=== PATIENT | male | born 1950 | race Caucasian/White ===

== ENCOUNTER → 2019-02-20 14:18 | Outpatient (CLI) | payer MEDICARE, SELFPAY ==
--- NOTE | 2019-02-20 14:25 | XR_ITS ---
XR foot LT min 3V HISTORY: ITS.REASON: LT FOOT PAIN ORDERING PHYSICIAN: Emery Duff MD PATIENT AGE: 68 years COMPARISON: None FINDINGS: There are osteoarthritic changes involving the second through fifth metatarsal tarsal joints with subchondral cystic changes. Severe osteoarthritic changes are also noted at the ankle joint with severe subchondral cystic changes. Bony hypertrophy is noted at the neck of the talus. No obvious fracture or dislocation. IMPRESSION Severe osteoarthritic change at the second through fifth metatarsal tarsal joint and ankle joint with extensive subchondral cystic changes
== END ==
PROVIDERS: PCP Family Medicine; Visit Provider Family Medicine
DX: M79.672 Pain in left foot (principal)
CPT/HCPCS: 73630

== ENCOUNTER → 2019-04-05 14:15 | Outpatient (CLI) | payer MEDICARE, SELFPAY ==
--- NOTE | 2019-04-05 14:20 | XR_ITS ---
PROCEDURE: XR FOOT WT BEARING LT 3V CLINICAL INDICATION: pain COMPARISON: from 02/20/2019 FINDINGS: Prominent subarticular cystic changes are present vomiting the midfoot not significantly changed. Small rounded calcific densities are present anterior to the ankle joint consistent with synovial osteochondromas. No fracture or dislocation. Severe osteoarthritic changes once again noted at the tarsal metatarsal junction. IMPRESSION: Overall no change. Prominent subarticular cystic changes with severe osteoarthritis Dictated by: Dc Brown MD 04/05/2019 15:30 Signed by: <Electronically signed by Dc Brown MD in [place]> 04/05/2019 15:30
--- NOTE | 2019-04-05 14:20 | XR_ITS ---
PROCEDURE: XR ANKLE WT BEARING RT MIN 3V CLINICAL INDICATION: pain COMPARISON: XR FOOT WT BEARING RT 3V from 04/05/2019 FINDINGS: Moderate to severe osteoarthritic changes are present at the ankle with decrease in the joint space and subarticular cystic changes along with osteosclerosis. Mild exostosis is present at the base of the medial malleolus. No acute fracture or dislocation. There are some lucencies noted in the talar dome medially nonspecific. Hypertrophic change present also at the neck of the talus anteriorly with bony osteophytes at the tibiotalar region IMPRESSION: Osteoarthritis with prominent subarticular cystic changes Dictated by: Dc Brown MD 04/05/2019 15:19 Signed by: <Electronically signed by Dc Brown MD in [place]> 04/05/2019 15:19
--- NOTE | 2019-04-05 14:20 | XR_ITS ---
PROCEDURE: XR FOOT WT BEARING RT 3V CLINICAL INDICATION: pain COMPARISON: XR FOOT WT BEARING LT 3V from 04/05/2019 FINDINGS: There is pes planus with severe subarticular cystic changes with osteoarthritis at the metatarsal tarsal junction of digits 2 through 5. There is what mild widening of the 1st intermetatarsal space. Osteoarthritic changes are present also at the navicular cuneiform joint with subarticular cystic changes. There is mild pes planus. There are periarticular erosive changes laterally at the 1st metatarsophalangeal junction. Prominent cyst involves the distal aspect of the 1st metatarsal with mild hallux valgus also noted.. Cystic changes are also present at the distal aspect of the proximal. The erosive changes have developed since the previous exam. Subarticular cystic changes are slightly worse IMPRESSION: Severe midfoot subarticular cystic changes/osteoarthritis with pes planus the and prominent cystic area at the head of the 1st metatarsal measuring 15 mm. Periarticular erosive change involves the lateral aspect of the 1st metatarsophalangeal joint. Erosive arthritis considered. This has developed since 06/25/2016 Dictated by: Dc Brown MD 04/05/2019 15:23 Signed by: <Electronically signed by Dc Brown MD in [place]> 04/05/2019 15:28
--- NOTE | 2019-04-05 14:20 | XR_ITS ---
PROCEDURE: XR ANKLE WT BEARING LT MIN 3V CLINICAL INDICATION: pain COMPARISON: No exams were available for comparison FINDINGS: Severe subarticular cystic changes are present involving the ankle joint with mild inversion of the ankle with osteoarthritis of the ankle joint. Calcific debris is present at both medial lateral malleolar region and a calcifications present anterior to the tibial talar joint. Sclerosis noted involving the subtalar joint IMPRESSION: Severe osteoarthritis with subarticular cystic changes Dictated by: Dc Brown MD 04/05/2019 15:31 Signed by: <Electronically signed by cD Brown MD in [place]> 04/05/2019 15:31
== END ==
PROVIDERS: PCP Family Medicine; Visit Provider Podiatrist
DX: M79.672 Pain in left foot (principal); M79.671 Pain in right foot; M25.572 Pain in left ankle and joints of left foot; M25.571 Pain in right ankle and joints of right foot
CPT/HCPCS: 73610; 73630

== ENCOUNTER → 2019-04-19 09:18 | Outpatient (CLI) | payer MEDICARE, SELFPAY ==
--- NOTE | 2019-04-19 09:23 | XR_ITS ---
PROCEDURE: XR FOOT WT BEARING LT 3V CLINICAL INDICATION: pain Chronic foot pain COMPARISON: FTR3 FOOT-RT-3 VIEWS from 06/25/2016 from 02/20/2019 XR FOOT WT BEARING LT 3V from 04/05/2019 XR FOOT WT BEARING RT 3V from 04/05/2019 FINDINGS: Prominent subarticular cystic changes are present vomiting the midfoot not significantly changed. Small rounded calcific densities are present anterior to the ankle joint consistent with synovial osteochondromas. No fracture or dislocation. Severe osteoarthritic changes once again noted at the tarsal metatarsal junction. IMPRESSION: Overall no change. Prominent subarticular cystic changes with severe osteoarthritis Dictated by: Dc Brown MD 04/19/2019 18:00 Electronically signed by Dc Brown MD in [place] 04/19/2019 18:00
--- NOTE | 2019-04-19 09:23 | XR_ITS ---
PROCEDURE: XR ANKLE WT BEARING LT MIN 3V CLINICAL INDICATION: pain Chronic medial ankle pain COMPARISON: XR ANKLE WT BEARING LT MIN 3V from 04/05/2019 XR ANKLE WT BEARING RT MIN 3V from 04/05/2019 FINDINGS: Severe osteoarthritic changes are present at the ankle joint with severe subarticular cystic changes. There is mild medial angulation of the talus. Subarticular cystic change with osteoarthritis noted at the talofibular joint as well. There is mild flattening of the talar dome. Subarticular cystic changes are also noted in the midfoot IMPRESSION: No change in the severe osteoarthritis with severe subarticular cystic changes Dictated by: Dc Brown MD 04/19/2019 17:56 Electronically signed by Dc Brown MD in [place] 04/19/2019 17:56
== END ==
LOC: RAD 09:20
PROVIDERS: PCP Family Medicine; Visit Provider Orthopaedic Surgery
DX: M25.572 Pain in left ankle and joints of left foot; E11.610 Type 2 diabetes mellitus with diabetic neuropathic arthropathy; M20.41 Other hammer toe(s) (acquired), right foot; M20.42 Other hammer toe(s) (acquired), left foot; M21.41 Flat foot [pes planus] (acquired), right foot; Z79.84 Long term (current) use of oral hypoglycemic drugs
CPT/HCPCS: 73610; 73630

== ENCOUNTER → 2019-05-03 08:36 | Outpatient (CLI) | payer MEDICARE, SELFPAY ==
[2019-05-03 09:28] LABS: Blood Urea Nitrogen 34 mg/dL (7-18); Creatinine,Serum 2.14 mg/dL (0.70-1.30); Estimated Glomerular Filt Rate 31 ml/min (>60); GFR (African American) 37 ML/MIN (>60)
== END ==
PROVIDERS: Visit Provider Podiatrist
DX: E11.610 Type 2 diabetes mellitus with diabetic neuropathic arthropathy (principal); Z79.84 Long term (current) use of oral hypoglycemic drugs; M79.672 Pain in left foot
CPT/HCPCS: 36415; 82565; 84520

== ENCOUNTER → 2019-05-04 08:22 | Outpatient (CLI) | payer MEDICARE, SELFPAY | PROVIDERS: PCP Family Medicine; Visit Provider Podiatrist | DX: E11.610 Type 2 diabetes mellitus with diabetic neuropathic arthropathy (principal); M79.672 Pain in left foot ==

== ENCOUNTER → 2019-05-30 13:42 | Outpatient (CLI) | payer MEDICARE, SELFPAY ==
--- NOTE | 2019-05-30 14:01 | MR_ITS ---
PROCEDURE: MR FOOT LT WO CON CLINICAL INDICATION: charcot Foot pain, Charcot joint, primary osteoarthritis Peroneal tendon tear/rupture/edema, instability, Peroni ule tendinitis/strain COMPARISON: XR FOOT WT BEARING LT 3V from 04/19/2019 TECHNIQUE: Routine multiplanar multi echo sequences are performed without gadolinium enhancement. FINDINGS: Ankle: Severe subarticular cystic changes of the distal tibia and talar dome with small knee joint effusion. Minimal cortical regularity of the talar dome. There are numerous subarticular cysts with osteoarthritic changes of the ankle. The subtalar joint has an unremarkable appearance as does the calcaneus and navicular. There are minimal osteoarthritic changes of the talonavicular joint. Subarticular cystic changes involve the cuneiforms and the base of the 2nd, 3rd, and 4th metatarsals there is diffuse subarticular cystic changes involving the 5th metatarsal and cuboid joint with osteoarthritic changes at the cuboid/5th metatarsal. Cannot exclude a more aggressive process. There is some expansion of the base of the 5th metatarsal superiorly and the distal aspect of the cuboid. There is central increased T2 signal within the peroneal brevis tendon at the retro malleolar groove and may be related to partial split tear or tendinopathy. There is a small amount fluid within the tendon sheath at and distal to the retro malleolar groove consistent with tendinitis. The Achilles tendon, extensor tendons, posterior tibialis, flexor hallucis longus and flexor digitorum longus tendons have an unremarkable appearance. There is mild edema of the distal tibia and the talar dome. Small ankle joint effusion is present. Mild soft tissue edema involves the plantar surface of the foot IMPRESSION: 1. Extensive subarticular cystic changes of the ankle and tarsal metatarsal junction as detailed above with osteoarthritic changes of the ankle and metatarsal tarsal junction. There is some mild expansion of the cystic changes at the 5th metatarsal tarsal junction. Follow-up is suggested to exclude a more aggressive process such as underlying infection or neoplasm at this region. 2. Small focal area of increased T2 signal within the peroneal brevis tendon consistent with tendinopathy versus partial split tear with fluid in the tendon sheath consistent with tenosynovitis Dictated by: Dc Brown MD 05/31/2019 13:15 Electronically signed by Dc Brown MD in [place] 06/01/2019 06:37
== END ==
LOC: RAD 13:42
PROVIDERS: PCP Family Medicine; Visit Provider Podiatrist
DX: E11.610 Type 2 diabetes mellitus with diabetic neuropathic arthropathy (principal)
CPT/HCPCS: 73718

== ENCOUNTER → 2019-06-01 12:51 | Outpatient (CLI) | payer MEDICARE, SELFPAY ==
--- NOTE | 2019-06-01 12:53 | MR_ITS ---
PROCEDURE: MR ANKLE LT WO CON CLINICAL INDICATION: charcot Severe fluid in ankle pain, left ankle instability, perennial tendinitis with string of the perineal tendon COMPARISON: XR FOOT WT BEARING LT 3V from 04/19/2019 MR FOOT LT WO CON from 05/30/2019 TECHNIQUE: Routine multiplanar multi echo sequences are performed without gadolinium enhancement. FINDINGS: Ankle: Severe subarticular cystic changes of the distal tibia and talar dome with small ankle there is cortical regularity of the distal articular surface of the tibia and of the talar dome. Severe osteoarthritic changes are present involving the distal tibiofibular junction with subarticular cystic changes. The tibial fibular ligaments are identified. The anterior talofibular ligament is not identified consistent with tear of the ATFL the posterior talofibular ligament does appear to be intact. The deltoid ligament is not identified with certainty. The extensor tendons, posterior tibialis, and flexor hallucis and flexor digitorum longus tendons have an unremarkable appearance A the perineal brevis tendon has an abnormal appearance at the level of and just inferior to the retro malleolar groove. A split tear is present at this area with enlargement of the peroneal brevis tendon. There is heterogeneous signal intensity within the peroneal brevis tendon at this area. The peroneal longus tendon has an unremarkable appearance. There is fluid within the tendon sheath of the peroneal longus and brevis tendon beginning in the distal leg and extending to the calcaneal region. The Achilles tendon, extensor tendons, posterior tibialis, flexor hallucis longus and flexor digitorum longus tendons have an unremarkable appearance. There is mild edema of the distal tibia and the talar dome. Small ankle joint effusion is present. Mild soft tissue edema involves the plantar surface of the foot IMPRESSION: 1. Extensive subarticular cystic changes of the ankle and tarsal bones with osteoarthritis with some cortical irregularity of the distal tibial surface and talar dome 2. Tendinopathy/tendinosis of the peroneal brevis tendon with split tear and with tenosynovitis of the peroneal tendon sheath 3. Nonvisualization of the anterior talofibular ligament and deltoid ligament suggesting tear is of these ligaments Dictated by: Dc Brown MD 06/02/2019 11:43 Electronically signed by Dc Brown MD in [place] 06/02/2019 11:43
== END ==
LOC: RAD 12:51
PROVIDERS: PCP Family Medicine; Visit Provider Podiatrist
DX: E11.610 Type 2 diabetes mellitus with diabetic neuropathic arthropathy (principal); Z79.84 Long term (current) use of oral hypoglycemic drugs
CPT/HCPCS: 73721

== ENCOUNTER → 2019-06-27 10:09 | Outpatient (CLI) | payer MEDICARE, SELFPAY ==
--- NOTE | 2019-06-27 10:10 | XR_ITS ---
PROCEDURE: XR DEXA AXIAL SKELETON CLINICAL HISTORY: Osteoporosis COMPARISON: No exams were available for comparison FINDINGS: L1-L4 density is 1.0 grams/centimeters sq with a T-score 2.7. The mean hip density is 0.963 grams/centimeters sq with a T-score -0.8 and an age matched Z-score of -0.2. The IMPRESSION: Normal bone density with low fracture risk Dictated by: Dc Brown MD 06/27/2019 18:40 Electronically signed by Dc Brown MD in [place] 06/27/2019 18:40
== END ==
PROVIDERS: PCP Family Medicine; Visit Provider Podiatrist
DX: M81.0 Age-related osteoporosis without current pathological fracture (principal); Q78.2 Osteopetrosis
CPT/HCPCS: 77080

== ENCOUNTER 2019-07-24 14:00 | Outpatient (RCR) | payer MEDICARE, SELFPAY ==
--- NOTE | 2019-06-27 11:23 | HMH.PTOPEV ---
PT Outpatient Evaluation Rehab PT Outpatient Evaluation Start: 06/27/19 09:06 Freq: Status: Active Protocol: Document 06/27/19 09:07 RANDAL (Rec: 06/27/19 11:22 RANDAL [id number]) Electronically Signed By Enmanuel Aguilar, PT 06/27/19 09:07 Outpatient Therapy Subjective History Subjective History Pt reports insidious onset L ankle pain beginning ~3-4 months ago. pt reports mostly medial L ankle pain in origin, exacerbated w/any wt. bearing activity. Pt reports recent Xrays of L ankle have revealed arthritis. Pt also reports failed L TKA contributes to poor gait and L ankle compensation pattern. PMH: thyroid cx., DM, OA Chief Complaint Pain,Stiff,Weakness Symptom Type Sharp Symptoms Relieved By Rest/Positioning Symptoms Aggravated By Standing,Physical Activity, Walking Prior Functional Limitations Standing,Walking Current Functional Limitations Standing,Walking Symptom Description Constant but Variable Level of pain today (0-10) 5 Pain scale - at its best (0-10) 4 Pain scale - at its worst (0-10) 8 Ankle/Foot Eval Gait Observation General Gait Pattern Observation Antalgic Gait,Wide Based Gait Assistive Device Ambulation Assistive Device Straight Cane Palpation Tenderness left Ankle/Foot Palpation Findings Tenderness Ankle/Foot Palpation Overall Comment 2-3/4 post. tib insertion ROM Ankle/Foot Dorsiflexion w/Knee Extended 0-10 Active Range Motion (degrees) Ankle/Foot Plantar Flexion Active Range 0-35 of Motion (degrees) Ankle/Foot Eversion Active Range of +10 Motion (degrees) Ankle/Foot Inversion Active Range of 10-30 Motion (degrees) Ankle/Foot ROM Limitations Soft Tissue Tightness,Bony Restriction,Pain MMT Ankle Dorsiflexion Strength Grade 4 Good Ankle Plantarflexion Strength Grade 4 Good Foot Eversion Strength Grade 4- Good- Foot Inversion Strength Grade 4- Good- Outpatient Therapy Assessment Impairments Problems/Impairmments Palpation Tenderness,Impaired Range of Motion,Impaired Strength,Impaired Gait Pattern ,Impaired Walking,Impaired Standing,Subjective C/O Pain, Impaired Self Care/Self Management Prognosis Rehab Potential Good Clinical Impression
== END 2019-07-24 14:05 | disposition home or self-care (01) ==
LOC: PT 14:00
PROVIDERS: Visit Provider Podiatrist
DX: M76.72 Peroneal tendinitis, left leg (principal); M25.372 Other instability, left ankle; S86.312A Strain of muscle(s) and tendon(s) of peroneal muscle group at lower leg level, left leg, initial encounter
CPT/HCPCS: 97010; 97014; 97035; 97110; 97163; G0283

== ENCOUNTER 2020-03-12 10:41 | Inpatient (IN) | payer MEDICARE, SELFPAY ==
[2020-03-12] VITALS (20 sets, daily range): BP systolic 105–162; BP diastolic 35–110; PULSE 56–95; RESP 14–20; TEMP 36.6–37.2; O2SAT 93–978; BMI 41.0; BMI 41.7
--- NOTE | 2020-03-12 | IR_ITS ---
APPROVED REPORT Patient Location: [facility]: [facility] RT (R) PROCEDURES Left heart catheterization Left ventriculogram Selective coronary angiogram Right femoral arterial access Catheter placement in the right axillary artery Right axillary artery angiogram Stent deployment to the right axillary artery Drug-eluting stent deployment to the mid and distal dominant right coronary artery INDICATION Acute non-ST elevation myocardial infarction, Coronary artery disease, Right axillary artery obstruction Informed consent was obtained prior to the procedure. COMPLICATIONS none Estimated Blood Loss: less than 10 mls TECHNIQUE One percent lidocaine used to anesthetize the right anterior aspect of the wrist. The right radial artery was accessed via the Seldinger technique. A 6 [place] sheath was placed in the right radial artery. 2.5 mg of verapamil, 800 mcg of nitroglycerin, 1mg Lidocaine and 5000 U Heparin were given through the arterial sheath. Diagnostic catheter was used to perform to perform left heart catheterization left ventriculogram and selective coronary angiogram. 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 At the end of the diagnostic procedure therapeutic heparin was administered and an AL 0.75 guide catheter was placed in the right coronary artery. A Choice PT wire was placed distally and a 5 mm x 30 mm resolute jerome stent was passed into the right coronary artery. The stent could not be deployed due to tortuosity therefore was pulled back into the guide catheter however the stent would not recover inside the guide catheter. This required right femoral arterial access and the placement of a long destination 8 [place] sheath with its distal tip ending in the thoracic aorta. A 4 mm snare was attempted to retrieve the stent and pull it into the 8 [place] sheath however this was unsuccessful. At this point a JR4 guide catheter was advanced through the 8 [place] sheath into the innominate artery and advanced into the subclavian axillary region. An advantage wire was placed distal into the brachial artery. The 5 mm 38 mm resolute stent was then pulled back into the right axillary artery and the stent was deployed at 6 francois. Simultaneously and overlapping the stent was a 9 mm x 37 mm bare-metal stent which was deployed at 8 francois. At 8 francois the 5 mm x 38 mm resolute stent balloon was deflated and the stent was then trapped external to the 9 mm stent. The stent was then deployed at 12 francois in the axillary artery crushing the 5 mm stent with the 9 mm stent. Excellent angiographic results were obtained with wide patency of the axillary artery. The apparatus from the right radial artery was removed while leaving the sheath in place. A 3 DRC guide catheter was then placed into the right coronary artery and a Choice PT extra-support wire was placed distally. A guide liner was used and a 5 mm x 26 mm resolute jerome stent was deployed at 18 francois in the distal right coronary artery reducing the critical disease to 0%. An additional 5 mm x 22 mm resolute jerome stent was deployed proximal to this at 18 francois yet still overlapping the stent getting excellent angiographic results. JANETH-3 flow was present before and after the procedure with wide patency of the stent. At the end of the procedure the apparatus was removed the groin was reprepped gloves were changed sheath was removed good hemostasis was achieved using Perclose device patient was transferred to the postop holding area stable condition
--- NOTE | 2020-03-12 10:37 | ECG_ITS ---
APPROVED REPORT Exam: Resting ECG HR:68 bpm ECG Measurements Heart Rate 68 AXES WA 176 P 68 QRSd 80 QRS -27 QT 420 T 62 QTc 446 <Conclusion> Normal sinus rhythm Low voltage QRS Nonspecific ST abnormality Abnormal ECG Electronically signed by : Abilio Scott, 03/15/2020 08:33:39
--- NOTE | 2020-03-12 10:51 | XR_ITS ---
PROCEDURE: XR CHEST PORTABLE CLINICAL HISTORY: chest discomfort COMPARISON: CR CXR CHEST(2 VIEWS-NOT PORTABLE) from 11/09/2013 FINDINGS: The cardiomediastinal silhouette and pulmonary vascularity are within normal limits. The lungs are clear without infiltrates, suspicious nodules, or pleural effusions. The right hemidiaphragm is elevated with mild vascular crowding in the right lung base. The remaining lungs are clear. No acute bony findings. Surgical clips are present in the thyroid area. IMPRESSION: No change with no acute finding Dictated b Dc Brown MD 03/12/2020 13:26 Dc Brown MD in [place] 03/12/2020 13:26
[2020-03-12 11:00] LABS: Basophils % 0.5 % (0.1-2.0); Chloride 100 mmol/L (98-107); Eosinophils # 0.1 K/mm3 (0.0-0.4); Eosinophils % 1.2 % (0.1-12.0); Hematocrit 39.3 % (42.0-52.0); Hemoglobin 13.6 g/dL (14.1-18.0); Lymphocytes # 1.2 K/mm3 (0.7-4.5); Lymphocytes % 17.1 % (10-50); Mean Corpuscular HGB Conc 34.7 g/dL (31.8-35.4); Mean Corpuscular Hemoglobin 33.2 pg (27.0-31.2); Mean Corpuscular Volume 95.7 fl (80-94); Mean Platelet Volume 6.8 fl (7.4-10.4); Monocytes # 0.4 K/mm3 (0.1-1.0); Monocytes % 6.2 % (1.7-9.3); Neutrophils # 5.2 K/mm3 (1.8-7.8); Platelet Count 269 K/mm3 (142-424); Potassium 3.6 mmoL/L (3.5-5.1); Red Cell Distribution Width 13.6 % (11.5-17.5); Sodium 138 mmol/L (136-145); White Blood Count 6.9 K/mm3 (4.8-10.8)
[2020-03-12 11:01] LABS: Anion Gap 12.6 mEq/L (5-15); Blood Urea Nitrogen 29 mg/dl (9-20); Calcium 9.2 mg/dl (8.4-10.2); Carbon Dioxide 29 mmol/L (22.0-30.0); Creatinine Clearance Estimated 73 mL/min (50-200); Estimated Glomerular Filt Rate 38 ml/min (>60); GFR (African American) 45 ML/MIN (>60); Glucose 177 mg/dl (74-100)
[2020-03-12 11:05] LABS: Alanine Aminotransferase 24 U/L (12-78); Albumin Level 3.8 g/dl (3.5-5.0); Albumin/Globulin Ratio 1.3 (1.1-1.8); Aspartate Amino Transferase 32 U/L (17-59); Bilirubin,Total 0.5 mg/dl (0.2-1.3); Lipase 121 U/L (23-300); Total Protein,Serum 6.8 g/dl (6.3-8.2)
[2020-03-12 11:19] LABS: NT Pro Brain Natriuretic Pep. 246 pg/mL (0-125)
[2020-03-12 11:21] LABS: Troponin I 0.54 ng/ml (0.00-0.034)
--- NOTE | 2020-03-12 11:21 | PC.NURSE ---
Critical value per Rebekah in the lab; BNP 246 and Troponin 0.54 reported to attending
--- NOTE | 2020-03-12 11:25 | HMH.EDCP ---
ED Disposition Clinical Impression: NSTEMI (non-ST elevated myocardial infarction), Hypertension, Acute kidney injury, Dyslipidemia Disposition: Admitted As Inpatient Condition on Discharge: Fair Referrals: Emery Duff MD [Primary Care Provider] - Time of Disposition: 11:42 (Admitted to Dr. Duff) - Critical Care Critical Care Time: No Attestation: On 03/12/20, the high probability of a clinically significant, sudden or life threatening deterioration of the following system(s) required my full and direct attention, intervention and personal management. The time I documented below is in addition to time spent performing reported procedures but includes the following listed in this critical care notation. Medical Decision Making - Anjum Inquiry Pt receiving controlled substance: No Vital Signs: 03/12/20 10:43 03/12/20 11:14 Temperature 98 F Temperature Source Oral Pulse Rate [Left Radial] 78 64 Respiratory Rate 20 14 Blood Pressure [Right Arm] 162/78 H 153/74 H Blood Pressure Mean [Right Arm] 106 100 Blood Pressure Source [Right Arm] Automatic Cuff Blood Pressure Position [Right Arm] Sitting Sitting 02 Sat by Pulse Oximetry 98 94 L Oxygen Delivery Method Room Air Room Air - Lab Data Lab Results 03/12/20 10:44: WBC 6.9, RBC 4.10 L, Hgb 13.6 L, Hct 39.3 L, MCV 95.7 H, MCH 33.2 H, MCHC 34.7, RDW 13.6, Plt Count 269, MPV 6.8 L, Neut % (Auto) 75.0, Lymph % (Auto) 17.1, Irion % (Auto) 6.2, Eos % (Auto) 1.2, Baso % (Auto) 0.5, Neut # (Auto) 5.2, Lymph # (Auto) 1.2, Irion # (Auto) 0.4, Eos # (Auto) 0.1, Baso # (Auto) 0.0 03/12/20 10:44: Sodium 138, Potassium 3.6, Chloride 100, Carbon Dioxide 29, Anion Gap 12.6, BUN 29 H, Creatinine 1.80 H, Estimated Creat Clear 73, Estimated GFR 38 L, Est GFR ( Amer) 45 L, Glucose 177 H, Calcium 9.2, Total Bilirubin 0.5, AST 32, ALT 24, Alkaline Phosphatase 111, Troponin I 0.54 H, NT-Pro-B Natriuret Pep 246 H, Total Protein 6.8, Albumin 3.8, Globulin 3.0, Albumin/Globulin Ratio 1.3, Lipase 121 Result diagrams: 03/12/20 10:44 03/12/20 10:44 Orders (Tests/Meds): ED MEDICATIONS Generic Name Dose Route Start Last Admin Trade Name Freq PRN Reason Stop Dose Admin Miscellaneous 1 each 03/12/20 11:30 Heparin Drip Consult Request * 04/11/20 11:29 CONSULT PHARMACY [facility] Sodium Chloride 8 ml 03/12/20 10:53 03/12/20 11:02 Sodium Chloride 0.9% 10ml Vial IV 04/11/20 10:52 8 ml NEEDED PRN Administration dilute pepcid Discontinued Medications Generic Name Dose Route Start Last Admin Trade Name Freq PRN Reason Stop Dose Admin Aspirin 325 mg 03/12/20 11:21 03/12/20 11:34 Aspirin 325mg Tablet PO 03/12/20 11:22 Not Given ONCE ONE Belladonna Alkaloids 60 ml 03/12/20 10:56 03/12/20 11:16 Gi Cocktail 60ml Udc PO 03/12/20 10:57 60 ml ONCE ONE Administration Famotidine 20 mg 03/12/20 10:53 03/12/20 11:03 Pepcid 20mg/2ml Vial IV 03/12/20 10:54 20 mg ONCE ONE Administration Ondansetron HCl 4 mg 03/12/20 10:51 03/12/20 10:51 Zofran 4mg/2ml Vial IV 03/12/20 10:52 4 mg ONCE ONE Administration Ticagrelor 180 mg 03/12/20 11:28 Brilinta 90mg Tablet PO 03/12/20 11:29 ONCE ONE ORDERS Category Date Time Status XR chest portable Stat Exams 03/12/20 10:51 Taken Troponin I Q3H Lab 03/12/20 14:00 Ordered Troponin I Q3H Lab 03/12/20 17:00 Ordered EKG Request [ECG Request by /Nse] Stat Y 03/12/20 10:52 Ordered - Radiology Data #1 Image(s): Chest Chronic changes, no acute changes - ECG Data Tracing #1 EKG shows MA interval 176 ms, normal QTC. Sinus rhythm with nonspecific changes. No previous EKG for comparison ECG initial impression date: 03/12/20 ECG initial impression time: 10:38 - Physician Consults Physician Consulted: Dr. Bullock Time: 11:30 Reason -: Cardiology Eval/Care - Reevaluation(s) Time: 11:40 Reevaluation #1: On reevaluation, the pat
[2020-03-12 11:29] LABS: Alkaline Phosphatase 111 U/L (38-126)
--- NOTE | 2020-03-12 11:40 | PC.NURSE ---
Candie from lab asst called, stated they have a pt there are about to cath at this time and then they will be ready for pt
--- NOTE | 2020-03-12 11:41 | PC.NURSE ---
Cheri from denture laboratory technician stated they are about to start with their current pt and asked if we could bring pt up when they call stating they are ready for him.
--- NOTE | 2020-03-12 11:42 | PC.NURSE ---
Tania Palacios APRN at bedside consulting patient at this time
--- NOTE | 2020-03-12 11:59 | HMH.CNCARD ---
History of Present Illness Consult date: 03/12/20 Requesting physician: Raf Ellington Consult reason: chest pain Chief complaint: chest pain Additional Medical History:: 1. htn 2. hld 3. dm] 4. thyroid cancer 5. GERD 6. arthritis History of present illness: this is a 70 year old white male who presented to the ED with complaints of chest pain. he states this CP started this morning when he woke up around 7 am. this is a burning pain in the center of the chest. he states his L arm was hurting last night and his R shoulder was hurting last night, but no pain in the arms this morning. he denies SOB. he has had some nausea this morning as well as diaphoresis. pain is severe. he states nothing worsens the pain. CP improved once he was given meds in the ED. He states he has HTN, HLD and DM. smokes 1 ppd. mother had a history of CO. he denies personal history of CO or CAD. denies fever, chills, vomiting, diarrhea, PND or orthopnea. [facility] History I have reviewed the patient's past medical history: Yes Medical History: Reports:: Cancer (thyroid ), Diabetes Mellitus Type 2, Gastroesophageal Reflux Disease(GERD), Hyperlipidemia, Hypertension, Kidney Stones *Have you ever received a pneumonia vaccine?: Yes *Have you received a flu vaccine this season?: Yes Other Medical History: Reports: Arthritis, Hypothyroidism, Other Other Surgeries: Yes: Thyroidectomy Amputation: No Fractures: Yes - *Social History Smoking Status: Current every day smoker Tobacco Type: cigarettes # Packs/Day (cigarettes): 1 Alcohol Intake: never Substance Use Type: denies use *Occupational Status:: other Housing: other Household Members: other *Travel in the last 8 weeks: None Family Hx:: Coronary Artery Disease, Diabetes, Cancer Meds Home Medications Medication Instructions Recorded Confirmed Type amlodipine 5 mg tablet PO tab 04/05/19 06/21/19 History colchicine 0.6 mg tablet PO tab 04/05/19 06/21/19 History dipyridamole 75 mg tablet PO tab 04/05/19 06/21/19 History furosemide 40 mg tablet PO tab 04/05/19 06/21/19 History glipizide 10 mg tablet PO tab 04/05/19 06/21/19 History levothyroxine 200 mcg tablet PO tab 04/05/19 06/21/19 History lisinopril 20 mg tablet PO tab 04/05/19 06/21/19 History lovastatin 20 mg tablet PO tab 04/05/19 06/21/19 History meloxicam 15 mg tablet PO tab 04/05/19 06/21/19 History metformin 1,000 mg tablet PO tab 04/05/19 06/21/19 History potassium chloride 10 mEq PO cap 04/05/19 06/21/19 History capsule,extended release trazodone 100 mg tablet PO tab 04/05/19 06/21/19 History valsartan 320 PO tab 04/05/19 06/21/19 History mg-hydrochlorothiazide 25 mg tablet Diclofenac Sodium [Diclofenac 75mg 75 mg PO BID 7 Days #15 tab 05/26/19 06/21/19 Rx Tab] Tizanidine HCl [Tizanidine HCl 2 mg PO TID PRN 7 Days #20 tab 05/26/19 06/21/19 Rx 2mg] allopurinol 100 mg tablet 100 mg PO tab 06/21/19 06/21/19 History tramadol 50 mg tablet 50 mg PO #0 tab 06/21/19 06/21/19 History Allergies Allergy/AdvReac Type Severity Reaction Status Date / Time No Known Allergies Allergy Verified 06/21/19 13:16 Review of Systems - Review of Systems Review of systems:: pertinent systems reviewed and negative unless documented below - Constitutional Reports fatigue - *Cardiovascular Reports chest pain, Reports chest pain at rest, Reports chest pain with activity, Reports excessive sweating - *Gastrointestinal Reports nausea - *Neurologic Denies headache(s) Exam Vital signs and Labs for Last 24 Hours: Temp Pulse Resp BP Pulse Ox 98 F 64 14 153/74 H 94 L 03/12/20 10:43 03/12/20 11:14 03/12/20 11:14 03/12/20 11:14 03/12/20 11:14 Laboratory Results - last 24 hr 03/12/20 10:44: WBC 6.9, RBC 4.10 L, Hgb 13.6 L, Hct 39.3 L, MCV 95.7 H, MCH 33.2 H, MCHC 34.7, RDW 13.6, Plt Count 269, MPV 6.8 L, Neut % (Auto) 75.0, Lymph % (Auto) 17.1, [place] % (Auto) 6.2, Eos % (Auto) 1.2, Baso % (Auto) 0.5, Neut # (Aut
[2020-03-12 12:04] LABS: Adenovirus,PCR Not Detected (NotDetected); Bordetella Pertussis Not Detected (NotDetected); Chlamydophila Pneumoniae, PCR Not Detected (NotDetected); Coronavirus 19, PCR Not Detected (NotDetected); Coronavirus 229E Not Detected (NotDetected); Coronavirus NL63 Not Detected (NotDetected); Coronavirus OC43 Not Detected (NotDetected); Coronovirus HKU1,PCR Not Detected (NotDetected); Human Metapneumovirus Not Detected (NotDetected); Influenza A, PCR Not Detected (NotDetected); Influenza AH1, 2009 Not Detected (NotDetected); Influenza AH1, PCR Not Detected (NotDetected); Influenza AH3,PCR Not Detected (NotDetected); Influenza B, PCR Not Detected (NotDetected); Mycoplasma Pneumoniae, PCR Not Detected (NotDetected); Parainfluenza 1, PCR Not Detected (NotDetected); Parainfluenza 2, PCR Not Detected (NotDetected); Parainfluenza 3, PCR Not Detected (NotDetected); Parainfluenza 4, PCR Not Detected (NotDetected); Respiratory Syncytial Virus Not Detected (NotDetected); Rhinovirus/Enterovirus Not Detected (NotDetected)
[2020-03-12 12:12] LABS: Activated Partial Thrombo Time 23.2 seconds (23.6-34.0)
--- NOTE | 2020-03-12 12:52 | HMH.HP ---
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 Plavix 75 daily combined with aspirin 81 mg daily plus Eliquis for 1 month 2. Patient will be kept in the hospital and will likely undergo cardiac catheterization this Tuesday with plans to revascularize the large posterior descending artery. This vessel was too large to treat medically and has a persistent critical stenosis. Given the large amounts of contrast and complexity of the procedure it was decided this patient best warrants convalescence with repeat revascularization of this large vessel 3. Gentle IV fluids 4. Cardiac rehabilitation 5. Avoidance of tobacco products 6. Risk factor modification Electronically signed by : Octavio Bullock, 03/12/2020 14:29:39 At the time of this exam patient states his chest is comfortable. He is somewhat drowsy. <Vivian Sen - 03/12/20 17:13> Mr. Cifuentes is a 70 year old white male who presented to the ED with complaints of chest pain. He states this CP started this morning when he woke up around 7 am. This is a burning pain in the center of the chest. He states his L arm was hurting last night and his R shoulder was hurting last night, but no pain in the arms this morning. He denies SOB. He has had some nausea this morning as well as diaphoresis. Pain is severe. He states nothing worsens the pain. CP improved once he was given meds in the ED. He states he has HTN, HLD and DM. smokes 1 ppd. Mother had a history of OK. He denies personal history of OK or CAD. Denies fever, chills, vomiting, diarrhea, PND or orthopnea. (the above as per Tania Palacios) <Va Culp 03/12/20 12:56> [facility] History I have reviewed the patient's past medical history: Yes <Va Culp 03/12/20 12:56> Medical History: Reports:: Cancer (thyroid ), Depression, Diabetes Mellitus Type 2, Gastroesophageal Reflux Disease(GERD), Hyperlipidemia, Hypertension, Kidney Stones, Transient Ischemic Attacks (TIA) <Va Culp 03/12/20 12:56> *Have you ever received a pneumonia vaccine?: Yes <Va Culp 03/12/20 12:56> *Have you received a flu vaccine this season?: Yes <Va Culp 03/12/20 12:56> Other Medical History: Reports: Arthritis, Hypothyroidism, Other (ANDRES, Insomnia, Gout, Elevated PSA) <Va Culp 03/12/20 12:56> Laterality Cases: Left: Total Knee Replacement, Partial Knee Replacement, Bilateral: Cataract <Va Culp 03/12/20 12:56> Other Surgeries: Yes: Thyroidectomy <Va Culp 03/12/20 12:56> Amputation: No <Va Culp 03/12/20 12:56> Fractures: Yes <Va Culp 03/12/20 12:56> - *Social History Smoking Status: Current every day smoker <Va Culp 03/12/20 12:56> Tobacco Type: cigarettes <Va Culp 03/12/20 12:56> # Packs/Day (cigarettes): 1 <Va Culp 03/12/20 12:56> Alcohol Intake: never <Va Culp 03/12/20 12:56> Substance Use Type: denies use <Va Culp 03/12/20 12:56> *Occupational Status:: other <Va Culp 03/12/20 12:56> Housing: other <Va Culp 03/12/20 12:56> Household Members: other <Va Culp
--- NOTE | 2020-03-12 14:06 | CA_ITS ---
APPROVED REPORT EXAM: Comprehensive 2D, Doppler, and color-flow Echocardiogram Finish Production Manager: Evi Aburto RDCS Ht: 5 ft 11 in Wt: 294lbs BSA: 2.48 BP: 153/74 mmHg Indications: nstemi,CAD,CP,HTN,DM,HLP,SMOKER 2D Dimensions LVOT 1.98 cm (M/F) 1.5-2.5 M-Mode Dimensions RVDd 2.86 cm (0.9-2.6) LVDd 4.20 cm (3.5-5.7) LVDs 5.80 cm (3.5-5.7) IVSd 1.18 cm (0.6-1.1) PWd 1.48 cm (0.6-1.1) EF (Teich) 42.60% FS 21.90% EDV (Teich) 358.20 mL ESV (Teich) 205.60 mL LV Diastology E/A Ratio 0.68 Aortic Valve LVOT Max 102.00 (70-110 cm/s) LVOT VTI 23.44 cm Mitral Valve MV A Velocity 66.00 (40-130 cm/s) Left Ventricle Left atrium is mildly enlarged, left ventricle is normal size, mild concentric left ventricular hypertrophy, visually estimated ejection fraction 45%, there is moderate hypokinesis involving mid to distal septum, anterior, apical and inferior apical wall. Grade 1 diastolic dysfunction seen without tissue Doppler evidence of raise left atrial pressure. Right Ventricle Right atrium and right ventricular normal size and contractility. Aortic Valve Aortic valve is minimally thickened and calcified, there is no aortic stenosis or aortic insufficiency. Mitral Valve Mitral valve is grossly normal, there is mild mitral regurgitation. Tricuspid Valve Tricuspid valve is grossly normal, there is mild tricuspid regurgitation, tricuspid regurgitation jet velocity is inadequate for calculation of the right ventricular systolic pressure. Pulmonic Valve Pulmonic valve is poorly visualized. Great Vessels Aortic root is normal size. Pericardium No significant pericardial effusion noted. Conclusion 1. Mildly enlarged left atrium, normal left ventricular size, mild concentric left ventricular hypertrophy, visually estimated ejection fraction 45% with multiple segmental wall motion abnormality described above, grade 1 diastolic dysfunction seen without tissue Doppler evidence of raise left atrial pressure. 2. Mild mitral and tricuspid regurgitation. 3. No significant pericardial effusion noted. Electronically signed by : Aron Toussaint, 03/12/2020 16:31:08
--- NOTE | 2020-03-12 15:45 | PC.NURSE ---
Notified Dr Duff that patient uses cpap at night, to bring machine
[2020-03-12 16:16] LABS: CATHL Activated Clotting Time 250 SEC (74-125)
--- NOTE | 2020-03-12 16:17 | P.CONPHA_ITS ---
[facility] Pharm[facility] VTE Monitoring - Patient Demographics Admission date: 03/12/20 Report Date: 03/12/20 Time: 16:17 Allergies/Adverse Reactions: Patient Allergies No Known Allergies Allergy (Verified 06/21/19 13:16) Height: 1.8 m Weight: 135.681 kg Patient Problems: Current Active Problems NSTEMI (non-ST elevated myocardial infarction) (Acute) Hypertension (Chronic) Acute kidney injury (Acute) Dyslipidemia (Chronic) Elevated troponin (Acute) Diabetes mellitus (Chronic) Smoker (Chronic) Unstable angina (Acute) - VTE Risk Labs: VTE Related Lab Results Hgb 13.6 g/dL (14.1-18.0) L 03/12/20 10:44 Hct 39.3 % (42.0-52.0) L 03/12/20 10:44 Plt Count 269 K/mm3 (142-424) 03/12/20 10:44 APTT 23.2 seconds (23.6-34.0) L 03/12/20 11:45 BUN 29 mg/dl (9-20) H 03/12/20 10:44 Creatinine 1.80 mg/dl (0.66-1.25) H 03/12/20 10:44 Estimated Creat Clear 73 mL/min (50-200) 03/12/20 10:44 Was VTE Risk Assessment Performed: Yes VTE Score: 8 VTE Risk Level: Moderate Risk Clinical Trial Participant: No - Prophylaxis VTE Prophylaxis Ordered?: Yes Types of VTE Prophylaxis: TEDS Knee High
--- NOTE | 2020-03-12 18:55 | PC.NURSE ---
Pt arrived to the floor via stretcher accompanied by laboratory asst RN's. He was drowsy but easy to arouse. He is alert and oriented. has brought in his cpap to use tonight. Dressing to right groin has some blood around it. Bruising noted under the dressing. Radial band still in place on rt wrist. Urinal at bedside for use. Will continue to monitor.
[2020-03-13] VITALS (14 sets, daily range): BP systolic 134–176; BP diastolic 71–94; PULSE 60–84; RESP 16–18; TEMP 36.7–37.3; O2SAT 93–100; BMI 41.1
[2020-03-13 00:57] LABS: POC Glucose,Bedside 152 (70-110)
--- NOTE | 2020-03-13 02:41 | PC.NURSE ---
A&OX3. TOLERATED RA WELL WHILE AWAKE WELL. USED CPAP FROM HOME WHILE ASLEEP AND TOLERATED WELL. LUNGS NOTED CLEAR T/O AUSCULTATION. ABDOMEN NOTED NONDISTENDED, ACTIVE BOWEL SOUNDS IN ALL QUADS, SOFT AND NONTENDER PER PALPATION. PULSES +2, CAP REFILL <3 SEC. NSR NOTED PER BRIDGE TOLL COLLECTOR. ADEQUATE UO THIS SHIFT. URINE NOTED CLEAR & YELLOW, VOIDS PER URINAL. RIGHT RADIAL BAND REMOVED AT 2030 AND 2X2 GAUZE AND TEGADERM APPLIED AT RIGHT RADIAL SITE AT THIS TIME. RIGHT RADIAL DRESSING NOTED CDI T/O SHIFT. RIGHT FEMORAL DRESSING NOTED WITH MINIMAL DRIED BLOODY DRAINAGE THIS SHIFT THAT WAS UNCHANGED SINCE DAY SHIFT. MINIMAL BRUISING NOTED ABOVE FEMORAL SITE. NO C/O PAIN PER PALPATION. SKIN NOTED PINK, WARM PER PALPATION. VSS. WILL CONTINUE TO MONITOR.
[2020-03-13 05:32] LABS: POC Glucose,Bedside 134 (70-110)
[2020-03-13 06:27] LABS: Eosinophils # 0.1 K/mm3 (0.0-0.4); Mean Corpuscular Volume 93.1 fl (80-94); Neutrophils # 4.9 K/mm3 (1.8-7.8); Red Cell Distribution Width 14.2 % (11.5-17.5)
[2020-03-13 06:44] LABS: Basophils % 0.5 % (0.1-2.0); Eosinophils % 1.8 % (0.1-12.0); Hematocrit 34.9 % (42.0-52.0); Lymphocytes # 1.2 K/mm3 (0.7-4.5); Mean Corpuscular HGB Conc 35.6 g/dL (31.8-35.4); Mean Corpuscular Hemoglobin 33.2 pg (27.0-31.2); Mean Platelet Volume 6.9 fl (7.4-10.4); Monocytes # 0.7 K/mm3 (0.1-1.0); Monocytes % 9.7 % (1.7-9.3); Neutrophils % 71.1 % (37.0-80.0); Platelet Count 244 K/mm3 (142-424); Red Blood Count 3.75 M/mm3 (4.60-6.20); White Blood Count 6.8 K/mm3 (4.8-10.8)
[2020-03-13 06:45] LABS: Alanine Aminotransferase 23 U/L (12-78); Albumin Level 3.4 g/dl (3.5-5.0); Alkaline Phosphatase 107 U/L (38-126); Anion Gap 11.3 mEq/L (5-15); Aspartate Amino Transferase 50 U/L (17-59); Bilirubin,Direct 0.1 mg/dl (0.0-0.4); Bilirubin,Indirect 0.5 mg/dL (0.0-0.9); Bilirubin,Total 0.6 mg/dl (0.2-1.3); Bilirubin,Unconjugated 0.4 mg/dL (0.0-1.1); Blood Urea Nitrogen 28 mg/dl (9-20); Calcium 8.8 mg/dl (8.4-10.2); Carbon Dioxide 33 mmol/L (22.0-30.0); Chloride 96 mmol/L (98-107); Chol/HDL Ratio 4.1 (1-3.5); Cholesterol 153 mg/dl (140-200); Creatinine Clearance Estimated 39 mL/min (50-200); Estimated Glomerular Filt Rate 35 ml/min (>60); GFR (African American) 43 ML/MIN (>60); Glucose 132 mg/dl (74-100); HDL Cholesterol 37 mg/dl (40-60); Potassium 3.3 mmoL/L (3.5-5.1); Sodium 137 mmol/L (136-145); Total Protein,Serum 6.2 g/dl (6.3-8.2); Triglycerides 120 mg/dl (30-150); VLDL Cholesterol 24 mg/dL (0-40)
[2020-03-13 06:48] LABS: Hemoglobin 12.4 g/dL (14.1-18.0)
[2020-03-13 06:56] LABS: Direct LDL Cholesterol 94.49 mg/dL (100-129)
--- NOTE | 2020-03-13 08:20 | HMH.ACPN2 ---
<Va Culp - Last Filed: 03/13/20 08:20> Internal Medicine - PN: Subj *Date: 03/13/20 *Time: 08:20 Interval history: Patient states he is feeling well this morning. He denies any further chest pain or shortness of breath. He is able to get up and move around his room. He did not rest well last night. Exam Vital signs and Labs for Last 24 Hours: Temp Pulse Resp BP Pulse Ox 98.7 F 69 18 134/78 96 03/13/20 04:00 03/13/20 06:00 03/13/20 04:00 03/13/20 06:00 03/13/20 06:00 Laboratory Results - last 24 hr 03/12/20 10:44: WBC 6.9, RBC 4.10 L, Hgb 13.6 L, Hct 39.3 L, MCV 95.7 H, MCH 33.2 H, MCHC 34.7, RDW 13.6, Plt Count 269, MPV 6.8 L, Neut % (Auto) 75.0, Lymph % (Auto) 17.1, [place] % (Auto) 6.2, Eos % (Auto) 1.2, Baso % (Auto) 0.5, Neut # (Auto) 5.2, Lymph # (Auto) 1.2, [place] # (Auto) 0.4, Eos # (Auto) 0.1, Baso # (Auto) 0.0 03/12/20 10:44: Sodium 138, Potassium 3.6, Chloride 100, Carbon Dioxide 29, Anion Gap 12.6, BUN 29 H, Creatinine 1.80 H, Estimated Creat Clear 73, Estimated GFR 38 L, Est GFR ( Amer) 45 L, Glucose 177 H, Calcium 9.2, Total Bilirubin 0.5, AST 32, ALT 24, Alkaline Phosphatase 111, Troponin I 0.54 H, NT-Pro-B Natriuret Pep 246 H, Total Protein 6.8, Albumin 3.8, Globulin 3.0, Albumin/Globulin Ratio 1.3, Lipase 121 03/12/20 11:45: APTT 23.2 L 03/12/20 11:45: Chlamy pneumoniae PCR Not detected, Adenovirus (PCR) Not detected, B. pertussis DNA (PCR) Not detected, Coronavirus OC43 (PCR) Not detected, Coronavirus HKU1 (PCR) Not detected, Coronavirus 229E (PCR) Not detected, COVID-19 PCR Not detected, Coronavirus NL63 (PCR) Not detected, Human Metapneumovir PCR Not detected, Influenza A (H1) PCR Not detected, Influ A (H1N1/09) PCR Not detected, Influenza A (H3) PCR Not detected, Influenza Type A (PCR) Not detected, Influenza Type B (PCR) Not detected, M. pneumoniae (PCR) Not detected, Parainfluenza 1 (PCR) Not detected, Parainfluenza 2 (PCR) Not detected, Parainfluenza 3 (PCR) Not detected, Parainfluenza 4 (PCR) Not detected, RSV (PCR) Not detected, Entero/Rhino (PCR) Not detected 03/12/20 14:04: Activated Clotting Time 250 H* 03/12/20 20:20: POC Glucose 152 H 03/13/20 05:24: POC Glucose 134 H 03/13/20 05:25: WBC 6.8, RBC 3.75 L, Hgb 12.4 L, Hct 34.9 L, MCV 93.1, MCH 33.2 H, MCHC 35.6 H, RDW 14.2, Plt Count 244, MPV 6.9 L, Neut % (Auto) 71.1, Lymph % (Auto) 17.0, [place] % (Auto) 9.7 H, Eos % (Auto) 1.8, Baso % (Auto) 0.5, Neut # (Auto) 4.9, Lymph # (Auto) 1.2, [place] # (Auto) 0.7, Eos # (Auto) 0.1, Baso # (Auto) 0.0 03/13/20 05:25: Sodium 137, Potassium 3.3 L, Chloride 96 L, Carbon Dioxide 33 H, Anion Gap 11.3, BUN 28 H, Creatinine 1.90 H, Estimated Creat Clear 39, Estimated GFR 35 L, Est GFR ( Amer) 43 L, Glucose 132 H D, Calcium 8.8, Total Bilirubin 0.6, Direct Bilirubin 0.1, Conjugated Bilirubin 0.0, Indirect Bilirubin 0.5, Unconjugated Bilirubin 0.4, AST 50 D, ALT 23, Alkaline Phosphatase 107, Total Protein 6.2 L, Albumin 3.4 L D, Triglycerides 120, Cholesterol 153, LDL Cholesterol Direct 94.49 L, VLDL Cholesterol 24, HDL Cholesterol 37 L, Cholesterol/HDL Ratio 4.1 H I & O for Last 24 hours: Intake & Output 03/10/20 03/11/20 03/12/20 03/13/20 11:59 11:59 11:59 11:59 Intake Total 731 / 731 Output Total 2575 / 2575 Balance -1844 / -1844 Weight 294 lb 299 lb 2 oz - Constitutional no acute distress - *Routine Respiratory Exam Present: CTA bilaterally - *Routine Cardiovascular Exam Present: RRR - *Routine Abdominal Exam Present: soft, normoactive bowel sounds. Absent: tenderness - *Routine Extremities Exam Absent: cyanosis, clubbing, edema - *Routine Skin Exam Present: warm. Absent: rash - *Routine Neurological Exam Present: alert, oriented X3 Assessment and Plan (1) Unstable angina Current visit: Yes Status: Acute Category: Medical Code(s): I20.0 - Unstable angina (2) NSTEMI (non-ST elevated myocardial infarction) Current visit: Yes Status: Acute [place]
--- NOTE | 2020-03-13 09:28 | HMH.PNCARD ---
Subjective Date: 03/13/20 Time: 09:28 Principal diagnosis: NSTEMI Interval history: 70-year-old white male in chair in no acute distress. Patient denies any further chest pain specifically no indigestion type symptoms since his coronary stenting yesterday. Exam Vital signs and Labs for Last 24 Hours: Temp Pulse Resp BP Pulse Ox 98.7 F 69 18 134/78 96 03/13/20 04:00 03/13/20 06:00 03/13/20 04:00 03/13/20 06:00 03/13/20 06:00 Laboratory Results - last 24 hr 03/12/20 10:44: WBC 6.9, RBC 4.10 L, Hgb 13.6 L, Hct 39.3 L, MCV 95.7 H, MCH 33.2 H, MCHC 34.7, RDW 13.6, Plt Count 269, MPV 6.8 L, Neut % (Auto) 75.0, Lymph % (Auto) 17.1, [place] % (Auto) 6.2, Eos % (Auto) 1.2, Baso % (Auto) 0.5, Neut # (Auto) 5.2, Lymph # (Auto) 1.2, [place] # (Auto) 0.4, Eos # (Auto) 0.1, Baso # (Auto) 0.0 03/12/20 10:44: Sodium 138, Potassium 3.6, Chloride 100, Carbon Dioxide 29, Anion Gap 12.6, BUN 29 H, Creatinine 1.80 H, Estimated Creat Clear 73, Estimated GFR 38 L, Est GFR ( Amer) 45 L, Glucose 177 H, Calcium 9.2, Total Bilirubin 0.5, AST 32, ALT 24, Alkaline Phosphatase 111, Troponin I 0.54 H, NT-Pro-B Natriuret Pep 246 H, Total Protein 6.8, Albumin 3.8, Globulin 3.0, Albumin/Globulin Ratio 1.3, Lipase 121 03/12/20 11:45: APTT 23.2 L 03/12/20 11:45: Chlamy pneumoniae PCR Not detected, Adenovirus (PCR) Not detected, B. pertussis DNA (PCR) Not detected, Coronavirus OC43 (PCR) Not detected, Coronavirus HKU1 (PCR) Not detected, Coronavirus 229E (PCR) Not detected, COVID-19 PCR Not detected, Coronavirus NL63 (PCR) Not detected, Human Metapneumovir PCR Not detected, Influenza A (H1) PCR Not detected, Influ A (H1N1/09) PCR Not detected, Influenza A (H3) PCR Not detected, Influenza Type A (PCR) Not detected, Influenza Type B (PCR) Not detected, M. pneumoniae (PCR) Not detected, Parainfluenza 1 (PCR) Not detected, Parainfluenza 2 (PCR) Not detected, Parainfluenza 3 (PCR) Not detected, Parainfluenza 4 (PCR) Not detected, RSV (PCR) Not detected, Entero/Rhino (PCR) Not detected 03/12/20 14:04: Activated Clotting Time 250 H* 03/12/20 20:20: POC Glucose 152 H 03/13/20 05:24: POC Glucose 134 H 03/13/20 05:25: WBC 6.8, RBC 3.75 L, Hgb 12.4 L, Hct 34.9 L, MCV 93.1, MCH 33.2 H, MCHC 35.6 H, RDW 14.2, Plt Count 244, MPV 6.9 L, Neut % (Auto) 71.1, Lymph % (Auto) 17.0, [place] % (Auto) 9.7 H, Eos % (Auto) 1.8, Baso % (Auto) 0.5, Neut # (Auto) 4.9, Lymph # (Auto) 1.2, [place] # (Auto) 0.7, Eos # (Auto) 0.1, Baso # (Auto) 0.0 03/13/20 05:25: Sodium 137, Potassium 3.3 L, Chloride 96 L, Carbon Dioxide 33 H, Anion Gap 11.3, BUN 28 H, Creatinine 1.90 H, Estimated Creat Clear 39, Estimated GFR 35 L, Est GFR ( Amer) 43 L, Glucose 132 H D, Calcium 8.8, Total Bilirubin 0.6, Direct Bilirubin 0.1, Conjugated Bilirubin 0.0, Indirect Bilirubin 0.5, Unconjugated Bilirubin 0.4, AST 50 D, ALT 23, Alkaline Phosphatase 107, Total Protein 6.2 L, Albumin 3.4 L D, Triglycerides 120, Cholesterol 153, LDL Cholesterol Direct 94.49 L, VLDL Cholesterol 24, HDL Cholesterol 37 L, Cholesterol/HDL Ratio 4.1 H I & O for Last 24 hours: Intake & Output 03/10/20 03/11/20 03/12/20 03/13/20 11:59 11:59 11:59 11:59 Intake Total 1091 / 1091 Output Total 2575 / 2575 Balance -1484 / -1484 Weight 294 lb 294 lb 4 oz - *Routine HEENT Exam Head: Present: normocephalic Eye: Present: EOMI, PERRL ENT: Present: mucous membranes moist - *Routine Respiratory Exam Present: CTA bilaterally. Absent: accessory muscle use, rales, rhonchi, wheezes - *Routine Cardiovascular Exam Present: RRR. Absent: murmur, gallop, rubs - *Routine Extremities Exam Absent: edema, calf tenderness - *Routine Neurological Exam Present: alert, oriented X3, moving all extremities Progress Note: A&P (1) Unstable angina Status: Acute Current Visit: Yes (2) NSTEMI (non-ST elevated myocardial infarction) Status: Acute Current Visit: Yes (3) Elevated troponin Status: Acute Current Visit: Yes (4)
[2020-03-13 11:35] LABS: POC Glucose,Bedside 154 (70-110)
[2020-03-13 16:26] LABS: POC Glucose,Bedside 137 (70-110)
--- NOTE | 2020-03-13 18:43 | PC.NURSE ---
Pt has been up to the chair for most of the day today. BP was elevated at times. BEATRIZ Robledo notified and gave orders for carvedilol 3.125mg and irbesartan 150 mg PO to be given. He has been NSR on telemetry w/inverted t wave. No change from to rt femoral site and rt radial site from this am. No complaints or concerns this shift. Will continue to monitor.
[2020-03-13 20:42] LABS: POC Glucose,Bedside 206 (70-110)
[2020-03-14] VITALS (22 sets, daily range): BP systolic 128–187; BP diastolic 47–93; PULSE 59–78; RESP 15–20; TEMP 36.4–37.2; O2SAT 92–99; BMI 41.4; BMI 41.3
--- NOTE | 2020-03-14 | IR_ITS ---
APPROVED REPORT Patient Location: Inpatient PROCEDURES Drug-eluting stent deployment in the proximal large posterior descending artery INDICATION Recent non-ST elevation myocardial infarction Informed consent was obtained prior to the procedure. COMPLICATIONS none Estimated Blood Loss: less than 10 mls TECHNIQUE One percent lidocaine used to anesthetize the right anterior aspect of the wrist. The right radial artery was accessed via the Seldinger technique. A 6 [place] sheath was placed in the right radial artery. 2.5 mg of verapamil, 800 mcg of nitroglycerin, 1mg Lidocaine and 13,000 U Heparin were given through the arterial sheath. A 3 DRC guide catheter was used to intubate the right coronary artery and multiple wires were used to eventually traverse the stenosis. Eventually a Choice PT floppy wire was used to cross the critical lesion in the posterior descending artery. Multiple balloons were used along with a telescope guide liner. Eventually a 3 mm x 15 mm compliant balloon was deployed at 15 francois in the posterior descending artery which then allowed advancement of the telescope to the proximal posterior descending artery. A 3 mm x 26 mm resolute jerome stent was deployed at 20 francois reducing the critical stenosis to 0%. After achieving excellent angiographic results with JANETH-3 flow being present before and after the procedure the apparatus was removed the sheath was removed good hemostasis was achieved using TR banding patient was transferred to the postop holding her stable condition. IMPRESSION Successful stenting of a large proximal posterior descending artery critical disease reduced to 0% with one drug-eluting stent PLAN 1. Continue dual antiplatelet therapy along with post myocardial infarction standard of care 2. Patient should receive 1-1/2 to 2 L of normal saline overnight and have a repeat chemistry panel in the morning to make sure acute tubular necrosis/contrast nephropathy occurred. 3. I would also recommend a repeat chemistry panel this coming March 17. I discussed this with Dr. Duff and he is agreed to see the patient and check his chemistry panel both tomorrow and on Tuesday. 4. LDL less than 55 5. Cardiac rehabilitation 6. Avoidance of tobacco products Electronically signed by : Octavio Bullock, 03/14/2020 15:00:16
[2020-03-14 05:58] LABS: POC Glucose,Bedside 142 (70-110)
--- NOTE | 2020-03-14 07:16 | HMH.PNCARD ---
Subjective Date: 03/14/20 Time: 07:16 Principal diagnosis: NSTEMI Interval history: 70-year-old white male in chair in room in no acute distress. Denies any chest pain or heartburn symptoms overnight. Patient is anxious to proceed with cardiac catheterization possible discharge home today. Exam Vital signs and Labs for Last 24 Hours: Temp Pulse Resp BP Pulse Ox 98.9 F 72 20 173/88 H 95 03/14/20 04:00 03/14/20 06:00 03/14/20 06:00 03/14/20 06:00 03/14/20 06:00 Laboratory Results - last 24 hr 03/13/20 11:26: POC Glucose 154 H 03/13/20 16:17: POC Glucose 137 H 03/13/20 20:35: POC Glucose 206 H 03/14/20 05:51: POC Glucose 142 H I & O for Last 24 hours: Intake & Output 03/11/20 03/12/20 03/13/20 03/14/20 11:59 11:59 11:59 11:59 Intake Total 1091 / 1091 2020 Output Total 2875 / 2875 1225 / 1225 Balance -1784 / -1784 796 / 796 Weight 294 lb 294 lb 4 oz 296 lb - *Routine HEENT Exam Head: Present: normocephalic Eye: Present: EOMI, PERRL ENT: Present: mucous membranes moist - *Routine Respiratory Exam Present: CTA bilaterally. Absent: accessory muscle use, rales, rhonchi, wheezes - *Routine Cardiovascular Exam Present: RRR. Absent: murmur, gallop, rubs - *Routine Extremities Exam Absent: edema, calf tenderness - *Routine Neurological Exam Present: alert, oriented X3, moving all extremities Progress Note: A&P (1) Unstable angina Status: Acute Current Visit: Yes (2) NSTEMI (non-ST elevated myocardial infarction) Status: Acute Current Visit: Yes (3) Elevated troponin Status: Acute Current Visit: Yes (4) Diabetes mellitus Status: Chronic Current Visit: Yes (5) Smoker Status: Chronic Current Visit: Yes (6) Dyslipidemia Status: Chronic Current Visit: Yes (7) Hypertension Status: Chronic Current Visit: Yes (8) Sleep apnea Status: Chronic Current Visit: Yes (9) GERD (gastroesophageal reflux disease) Status: Chronic Current Visit: Yes Assessment and Plan for All Diagnoses:: 1. Non-ST elevation IN, status post 2 JOE to RCA. On aspirin and Brilinta 2. Remaining PDA disease to be addressed today with repeat cardiac catheterization. 3. Hypertension, labile control, will increase carvedilol to 6.25 mg twice daily today. Continue Avapro 150 mg daily 4. Mild cardiomyopathy with ejection fraction 45% with multiple segmental wall motion abnormalities. 5. Hyperlipidemia, continue atorvastatin 6. Diabetes mellitus, per PCP 7. Hypothyroidism, on Synthroid replacement 8. Hypokalemia, on replacement therapy, check BMP today to decide on continuing on replacement therapy. Pending results of cardiac catheterization patient could potentially be discharged home later today with follow-up next week.
--- NOTE | 2020-03-14 08:15 | HMH.ACPN2 ---
<Va Culp - Last Filed: 03/14/20 08:15> Internal Medicine - PN: Subj *Date: 03/14/20 *Time: 08:15 Interval history: Patient states he finally got some sleep last night. He denies any chest pain. He has only minimal shortness of breath. He is anxious to proceed with his heart cath and go home today. Exam Vital signs and Labs for Last 24 Hours: Temp Pulse Resp BP Pulse Ox 98.9 F 72 20 173/88 H 95 03/14/20 04:00 03/14/20 06:00 03/14/20 06:00 03/14/20 06:00 03/14/20 06:00 Laboratory Results - last 24 hr 03/13/20 11:26: POC Glucose 154 H 03/13/20 16:17: POC Glucose 137 H 03/13/20 20:35: POC Glucose 206 H 03/14/20 05:51: POC Glucose 142 H I & O for Last 24 hours: Intake & Output 03/11/20 03/12/20 03/13/20 03/14/20 11:59 11:59 11:59 11:59 Intake Total 1091 / 1091 2020 Output Total 2875 / 2875 1225 / 1225 Balance -1784 / -1784 796 / 796 Weight 294 lb 294 lb 4 oz 296 lb - Constitutional no acute distress - *Routine Respiratory Exam Present: CTA bilaterally - *Routine Cardiovascular Exam Present: RRR - *Routine Abdominal Exam Present: soft, normoactive bowel sounds. Absent: tenderness - *Routine Extremities Exam Absent: cyanosis, clubbing, edema - *Routine Skin Exam Present: warm. Absent: rash - *Routine Neurological Exam Present: alert, oriented X3 Assessment and Plan (1) Unstable angina Current visit: Yes Status: Acute Category: Medical Code(s): I20.0 - Unstable angina (2) NSTEMI (non-ST elevated myocardial infarction) Current visit: Yes Status: Acute Category: Medical Code(s): I21.4 - Non-ST elevation (NSTEMI) myocardial infarction (3) Elevated troponin Current visit: Yes Status: Acute Category: Medical Code(s): R79.89 - Other specified abnormal findings of blood chemistry (4) Diabetes mellitus Current visit: Yes Status: Chronic Category: Medical Code(s): E11.9 - Type 2 diabetes mellitus without complications (5) Smoker Current visit: Yes Status: Chronic Category: Social Hx Code(s): F17.200 - Nicotine dependence, unspecified, uncomplicated (6) Dyslipidemia Current visit: Yes Status: Chronic Category: Medical Code(s): E78.5 - Hyperlipidemia, unspecified (7) Hypertension Current visit: Yes Status: Chronic Category: Medical Code(s): I10 - Essential (primary) hypertension (8) Sleep apnea Current visit: Yes Status: Chronic Category: Medical Code(s): G47.30 - Sleep apnea, unspecified (9) GERD (gastroesophageal reflux disease) Current visit: Yes Status: Chronic Category: Medical Code(s): K21.9 - Gastro-esophageal reflux disease without esophagitis - Assessment and plan all Dx Assessment and Plan for all problems:: Patient has another heart cath scheduled today. <Emery Duff - Last Filed: 03/14/20 09:03> Internal Medicine - PN: Subj *Date: 03/14/20 *Time: 09:02 Exam Vital signs and Labs for Last 24 Hours: Temp Pulse Resp BP Pulse Ox 98.9 F 71 15 171/73 H 96 03/14/20 04:00 03/14/20 08:00 03/14/20 08:00 03/14/20 08:00 03/14/20 08:00 Laboratory Results - last 24 hr 03/13/20 11:26: POC Glucose 154 H 03/13/20 16:17: POC Glucose 137 H 03/13/20 20:35: POC Glucose 206 H 03/14/20 05:51: POC Glucose 142 H 03/14/20 07:54: Sodium 136, Potassium 3.6, Chloride 100, Carbon Dioxide 30, Anion Gap 9.6, BUN 28 H, Creatinine 1.70 H, Estimated Creat Clear 42, Estimated GFR 40 L, Est GFR ( Amer) 49 L, Glucose 157 H, Calcium 9.0 I & O for Last 24 hours: Intake & Output 03/11/20 03/12/20 03/13/20 03/14/20 23:59 23:59 23:59 23:59 Intake Total 240 / 240 2014 857 / 857 Output Total 1200 / 1200 2650 / 2900 250 / 250 Balance -960 / -960 -635 / -885 607 / 607 Weight 299 lb 2 oz 294 lb 4 oz 296 lb Assessment and Plan (1) Unstable angina Current visit: Yes Status: Acute Category: Medical Code(s): I20.0 - Unstable angina
[2020-03-14 08:19] LABS: Chloride 100 mmol/L (98-107); Potassium 3.6 mmoL/L (3.5-5.1); Sodium 136 mmol/L (136-145)
[2020-03-14 08:22] LABS: Anion Gap 9.6 mEq/L (5-15); Blood Urea Nitrogen 28 mg/dl (9-20); Carbon Dioxide 30 mmol/L (22.0-30.0); Creatinine Clearance Estimated 42 mL/min (50-200); Estimated Glomerular Filt Rate 40 ml/min (>60); GFR (African American) 49 ML/MIN (>60); Glucose 157 mg/dl (74-100)
--- NOTE | 2020-03-14 09:08 | SW/DCPLANNER ---
PATIENT ADMITTED TO [facility] WITH CHEST PAIN AND WAS SEEN BY CARDIOLOGY AND IS SCHEDULED FOR A HEART CATH TODAY... PENDING ON FINDINGS IF THERE IS A NEED FOR ANY DISCHARGE PLANNING IT WILL BE ADDRESSED INDICATED BY MD... DISPOSITION SHOULD BE SOON...
--- NOTE | 2020-03-14 12:48 | PC.NURSE ---
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
[2020-03-14 15:01] LABS: CATHL Activated Clotting Time 334 SEC (74-125)
--- NOTE | 2020-03-14 16:03 | PC.NURSE ---
spoke with dr. cloud about patient insistence that he was going home. did talk to patient about risks with radial band in place. agreeable to stay until radial band off and he speaks with dr. hazel
--- NOTE | 2020-03-14 16:14 | PC.NURSE ---
dr. hazel also stated to run current bag of fluids at 500ml/hr (a liter over 2 hours)
[2020-03-14 16:49] LABS: POC Glucose,Bedside 138 (70-110)
[2020-03-14 16:49] LABS: POC Glucose,Bedside 136 (70-110)
--- NOTE | 2020-03-14 17:08 | PC.NURSE ---
went over with primary md what medications patient would need at discharge. md stated he was on and migue/arb at home, already on cholesterol pill, and aspirin, has his first 30days of brilinta. states he will send low dose betablocker to pharmacy
--- NOTE | 2020-03-14 18:26 | PC.NURSE ---
patient extensively educated on medications with no questions, also educated on post cath care. instructed to call tuesday for follow up apt with john, and to get a lab draw on tuesday
--- NOTE | 2020-03-14 18:34 | PC.NURSE ---
patient radialband removed and telfa and tegaderm placed. no signs of bleeding or hematoma
--- NOTE | 2020-03-14 18:43 | PC.NURSE ---
verified with deangelo polanco he needed to stop taking the dipyridamole, and only take the aspirin 81mg daily and and brilinta 90mg bid
--- NOTE | 2020-03-15 09:24 | HMH.PHACLD ---
Celestino Cifuentes has received discharge medication counseling on the following medications: PATIENT LEFT LAST NIGHT AFTER PHARMACY WAS CLOSED. ASPIRIN IS NOT ON PATIENT'S DISCHARGE MED LIST, HOWEVER, IT IS DOCUMENTED IN CARDIOLOGY NOTES THAT PATIENT TAKES ASPIRIN AT HOME. NEW MEDICATIONS: CARVEDILOL, BRILINTA CONTINUE MEDICATIONS: VALSARTAN-HCTZ, LOVASTATIN
--- NOTE | 2020-03-15 10:22 | HMH.DCSUM ---
General - General Admission date:: 03/12/20 Discharge date: 03/14/20 HPI HPI: Mr. Cifuentes is a 70 year old white male who presented to the ED with complaints of chest pain. He states this CP started this morning when he woke up around 7 am. This is a burning pain in the center of the chest. He states his L arm was hurting last night and his R shoulder was hurting last night, but no pain in the arms this morning. He denies SOB. He has had some nausea this morning as well as diaphoresis. Pain is severe. He states nothing worsens the pain. CP improved once he was given meds in the ED. He states he has HTN, HLD and DM. smokes 1 ppd. Mother had a history of MN. He denies personal history of MN or CAD. Denies fever, chills, vomiting, diarrhea, PND or orthopnea. (the above as per Tania Palacios) The patient was taken directly to the [facility]. Hospital Course Hospital Course: The patient's initial chest x-ray showed nothing acute. He was taken directly from the ER to the [facility] and had successful stenting of the mid and distal dominant right coronary severe disease with 2 drug-eluting stents. He had persistent severe to critical disease in a large posterior descending artery which cardiology felt would require revascularization later during his admission. He had a normal EF but an elevated LVEDP. He also had successful trapping of a drug-eluting stent in the right axillary artery with a bare-metal balloon expandable stent. Cardiology recommended Plavix 75 mg daily as well as aspirin 81 mg daily for a month. They wanted to keep him in the hospital to likely undergo cardiac catheterization in a few days with plans to revascularize the large posterior descending artery as it was too large to treat medically and had a persistent critical stenosis. The patient did have an echo showing an EF of 45% with grade 1 diastolic dysfunction. He denied any further chest pain or shortness of breath after his initial heart cath and was able to get up and move about his room. The patient had a repeat heart cath on 03/14/2020 with successful stenting of the large proximal posterior descending artery with 1 stent. Cardiology recommended he receive 1-1/2 to 2 L of normal saline overnight and have a repeat chemistry panel the next day to make sure there was no acute tubular necrosis/contrast nephropathy. They also wanted the patient continued on dual antiplatelet therapy. Dr. Duff discussed this with the patient but he refused to stay another night. He was given a liter of normal saline IV prior to discharge and will have a BMP checked in 2 days. He will follow-up with both Dr. Duff and Dr. Bullock. Objective Vital signs: Temp Pulse Resp BP Pulse Ox 97.5 F L 70 20 167/59 H 99 03/14/20 16:34 03/14/20 17:55 03/14/20 17:55 03/14/20 17:55 03/14/20 17:55 Narrative: - Constitutional no acute distress Comments: Lying in bed and appears comfortable - *Routine HEENT Exam Head: Present: normocephalic, atraumatic Eye: Present: PERRL. Absent: conjunctival icterus, scleral injection ENT: Present: mucous membranes moist - *Routine Neck Exam Absent: carotid bruit, lymphadenopathy, thyromegaly - *Routine Respiratory Exam Present: CTA bilaterally - *Routine Cardiovascular Exam Present: RRR - *Routine Abdominal Exam Present: soft, normoactive bowel sounds, obese. Absent: tenderness - *Routine Extremities Exam Absent: edema, calf tenderness - *Routine Neurological Exam Present: alert, oriented X3 Results Labs on day of discharge: Labs from last 24 hours 03/14/20 03/14/20 03/14/20 16:07 13:31 11:28 Activated Clotting Time 334 H* POC Glucose 136 H 138 H DS: Diagnosis - Discharge Diagnosis (1) Unstable angina Status: Acute (2) NSTEMI (non-ST elevated myocardial infarction) Status: Acute (3) Elevated troponin Status: Acute (4) Diabetes mellitu
[2020-04-16 16:27] LABS: CATHL Activated Clotting Time 275 SEC (74-125)
== END 2020-03-14 18:46 | disposition home or self-care (01) | DRG 247 ==
LOC: ER 12:12 → CATHLAB 12:13 → 2ND 15:02
PROVIDERS: Internal Medicine; Nurse Practitioner Family; Admitting Provider Family Medicine; Emergency Provider Emergency Medicine; PCP Family Medicine; Visit Provider Family Medicine
PROC: 027034Z Dilation of Coronary Artery, One Artery with Drug-eluting Intraluminal Device, Percutaneous Approach (ICD-10-PCS; principal; 2020-03-12 13:30)
DX: I21.4 Non-ST elevation (NSTEMI) myocardial infarction (principal); I97.88 Other intraoperative complications of the circulatory system, not elsewhere classified; I25.110 Atherosclerotic heart disease of native coronary artery with unstable angina pectoris; E03.9 Hypothyroidism, unspecified; E11.9 Type 2 diabetes mellitus without complications; I10 Essential (primary) hypertension; Z72.0 Tobacco use; Z79.84 Long term (current) use of oral hypoglycemic drugs; I25.83 Coronary atherosclerosis due to lipid rich plaque; I77.1 Stricture of artery
CPT/HCPCS: 36415; 37236; 71045; 80048; 80053; 80061; 80076; 82962; 83690; 83880; 84484; 85025; 85347; 85730; 87581; 87633; 87798; 92928; 92941; 93005; 93306; 93458; 96365; 96375; 99152; 99153; 99284; C1725; C1760; C1769; C1776; C1876; C1894; C9600; C9606; J1644; J2405; Q9967

== ENCOUNTER → 2020-03-16 10:52 | Outpatient (CLI) | payer MEDICARE, SELFPAY ==
[2020-03-16 11:40] LABS: Chloride 102 mmol/L (98-107); Potassium 3.8 mmoL/L (3.5-5.1); Sodium 138 mmol/L (136-145)
[2020-03-16 11:43] LABS: Anion Gap 13.8 mEq/L (5-15); Blood Urea Nitrogen 28 mg/dl (9-20); Carbon Dioxide 26 mmol/L (22.0-30.0); Estimated Glomerular Filt Rate 38 ml/min (>60); GFR (African American) 45 ML/MIN (>60); Glucose 175 mg/dl (74-100)
[2020-03-16 11:44] LABS: Calcium 8.7 mg/dl (8.4-10.2)
== END ==
PROVIDERS: PCP Family Medicine; Visit Provider Registered Nurse
DX: N17.9 Acute kidney failure, unspecified (principal)
CPT/HCPCS: 36415; 80048

== ENCOUNTER → 2020-03-28 08:26 | Outpatient (CLI) | payer MEDICARE, SELFPAY ==
--- NOTE | 2020-03-28 08:26 | US_ITS ---
PROCEDURE: US ABD. AORTA SCREENING CLINICAL INDICATION: screening Screening for abdominal aortic aneurysm COMPARISON: No exams were available for comparison FINDINGS: The abdominal aorta and proximal common iliacs are unremarkable without evidence of aneurysmal dilatation. IMPRESSION: No evidence of abdominal aortic aneurysm Dictated by: Dc Brown MD 03/28/2020 11:55 Dc Brown MD in [place] 03/28/2020 11:55
--- NOTE | 2020-03-28 09:25 | CA_ITS ---
APPROVED REPORT Senior Mechanical Engineer: SAMANTHA Laterality: Bilateral Study Quality: Good Indications: carotid bruit Doppler Spectral Velocity Analysis dICA (R) 88.40/18.80 cm/s dICA (L) 101.20/28.20 cm/s Sunny (R) 86.00/20.30 cm/s Sunny (L) 88.30/22.80 cm/s pICA (R) 59.40/11.00 cm/s pICA (L) 73.60/15.40 cm/s dCCA (R) 108.80/10.80 cm/s dCCA (L) 95.60/10.80 cm/s pCCA (R) 111.60/9.50 cm/s pCCA (L) 96.90/8.70 cm/s Vert (R) 11.00/3.70 cm/s Vert (L) 62.70/13.30 cm/s ICA/CCA 0.80 ICA/CCA 1.10 Findings Duplex evaluation demonstrates stenosis of the right proximal internal carotid artery <20% with PSV <140 cm/sec, EDV <100 cm/sec, and IC/CC Ratio <4.0.Duplex evaluation demonstrates stenosis of the left proximal internal carotid artery <20% with PSV <140 cm/sec, EDV <100 cm/sec, and IC/CC Ratio <4.0.Antegrade flow seen bilateral vertebral arteries. Conclusion Duplex evaluation demonstrates stenosis of the right proximal internal carotid artery <20% with PSV <140 cm/sec, EDV <100 cm/sec, and IC/CC Ratio <4.0.Duplex evaluation demonstrates stenosis of the left proximal internal carotid artery <20% with PSV <140 cm/sec, EDV <100 cm/sec, and IC/CC Ratio <4.0.Antegrade flow seen bilateral vertebral arteries. Duplex evaluation demonstrates no evidence of hemodynamically significant stenosis of the bilateral Internal Carotid Arteries. Electronically signed by : Dc Brown MD 03/28/2020 16:29:55
== END ==
LOC: RAD 08:26
PROVIDERS: PCP Family Medicine; Visit Provider Internal Medicine Cardiovascular Disease
DX: R09.89 Other specified symptoms and signs involving the circulatory and respiratory systems; I21.4 Non-ST elevation (NSTEMI) myocardial infarction; I25.10 Atherosclerotic heart disease of native coronary artery without angina pectoris; E78.5 Hyperlipidemia, unspecified; N18.9 Chronic kidney disease, unspecified
CPT/HCPCS: 76705; 93880

== ENCOUNTER → 2020-07-18 09:54 | Outpatient (CLI) | payer MEDICARE, SELFPAY ==
[2020-07-18 10:43] LABS: Basophils % 0.8 % (0.1-2.0); Eosinophils # 0.2 K/mm3 (0.0-0.4); Eosinophils % 4.4 % (0.1-12.0); Hematocrit 39.1 % (42.0-52.0); Hemoglobin 12.9 g/dL (14.1-18.0); Lymphocytes % 20.5 % (10-50); Mean Corpuscular HGB Conc 33.1 g/dL (31.8-35.4); Mean Corpuscular Hemoglobin 32.2 pg (27.0-31.2); Mean Corpuscular Volume 97.5 fl (80-94); Mean Platelet Volume 9.2 fl (7.4-10.4); Monocytes # 0.5 K/mm3 (0.1-1.0); Monocytes % 9.1 % (1.7-9.3); Neutrophils # 3.3 K/mm3 (1.8-7.8); Neutrophils % 65.2 % (37.0-80.0); Platelet Count 330 K/mm3 (142-424); Red Blood Count 4.01 M/mm3 (4.60-6.20); Red Cell Distribution Width 15.7 % (11.5-17.5)
[2020-07-18 11:56] LABS: Free T4 (Free Thyroxine) 1.03 ng/dl (0.78-2.19)
== END ==
PROVIDERS: Visit Provider Internal Medicine Cardiovascular Disease
DX: E78.5 Hyperlipidemia, unspecified (principal); E11.69 Type 2 diabetes mellitus with other specified complication; F17.200 Nicotine dependence, unspecified, uncomplicated; I10 Essential (primary) hypertension; I21.4 Non-ST elevation (NSTEMI) myocardial infarction; I25.10 Atherosclerotic heart disease of native coronary artery without angina pectoris; I65.23 Occlusion and stenosis of bilateral carotid arteries; K21.9 Gastro-esophageal reflux disease without esophagitis; Z79.84 Long term (current) use of oral hypoglycemic drugs
CPT/HCPCS: 36415; 84439; 84443; 85025

== ENCOUNTER 2020-07-22 14:05 | Emergency (ER) | payer MEDICARE, SELFPAY ==
[2020-07-22 14:06] VITALS: BP 133/75; PULSE 77; RESP 16; TEMP 37; O2SAT 96; BMI 45.3
--- NOTE | 2020-07-22 14:10 | ECG_ITS ---
APPROVED REPORT Exam: Resting ECG HR:88 bpm ECG Measurements Heart Rate 88 AXES UT 178 P 61 QRSd 82 QRS -53 QT 380 T 87 QTc 459 Conclusion Normal sinus rhythm Low voltage QRS Left anterior fascicular block Inferior infarct changes are old Abnormal ECG Electronically signed by : Abilio Scott, 07/23/2020 11:57:47
--- NOTE | 2020-07-22 14:14 | HMH.EDGENADL ---
ED Disposition Clinical Impression: Brain mass Altered mental state Qualifiers: Altered mental status type: disorientation Qualified Code(s): R41.0 - Disorientation, unspecified Disposition: Xfer Other Condition on Discharge: Fair Referrals: Emery Duff MD [Primary Care Provider] - - Critical Care Critical Care Time: No Attestation: On 07/22/20, the high probability of a clinically significant, sudden or life threatening deterioration of the following system(s) required my full and direct attention, intervention and personal management. The time I documented below is in addition to time spent performing reported procedures but includes the following listed in this critical care notation. Medical Decision Making - Medical Records Medical records reviewed: Yes: I reviewed the patient's medical records. - Anjum Inquiry Pt receiving controlled substance: No Vital Signs: 07/22/20 14:06 07/22/20 14:30 07/22/20 15:41 Temperature 98.6 F Temperature Source Oral Pulse Rate [Right] 77 73 66 Respiratory Rate 16 Blood Pressure [Right Arm] 133/75 144/83 H 196/87 H Blood Pressure Mean [Right Arm] 94 103 123 Blood Pressure Source [Right Arm] Automatic Cuff Automatic Cuff Automatic Cuff Blood Pressure Position [Right Arm] Sitting Sitting Sitting 02 Sat by Pulse Oximetry 96 97 Oxygen Delivery Method Room Air Room Air 07/22/20 16:58 Temperature Temperature Source Pulse Rate [Right] 70 Respiratory Rate 16 Blood Pressure [Right Arm] 154/78 H Blood Pressure Mean [Right Arm] 103 Blood Pressure Source [Right Arm] Automatic Cuff Blood Pressure Position [Right Arm] Sitting 02 Sat by Pulse Oximetry 98 Oxygen Delivery Method Room Air - Lab Data Lab Results 07/22/20 14:20: WBC 4.5 L, RBC 3.90 L, Hgb 12.6 L, Hct 37.8 L, MCV 97.1 H, MCH 32.2 H, MCHC 33.2, RDW 16.1, Plt Count 313, MPV 7.7, Neut % (Auto) 69.0, Lymph % (Auto) 18.1, [place] % (Auto) 8.4, Eos % (Auto) 3.6, Baso % (Auto) 0.9, Neut # (Auto) 3.1, Lymph # (Auto) 0.8, [place] # (Auto) 0.4, Eos # (Auto) 0.2, Baso # (Auto) 0.0 07/22/20 14:20: Sodium 137, Potassium 4.7, Chloride 99, Carbon Dioxide 31 H, Anion Gap 11.7, BUN 33 H, Creatinine 2.00 H, Estimated Creat Clear 37, Estimated GFR 33 L, Est GFR ( Amer) 40 L, Glucose 276 H, Calcium 9.2, Total Bilirubin 0.7, AST 39, ALT 30, Alkaline Phosphatase 114, Troponin I < 0.01, Total Protein 6.5, Albumin 3.5, Globulin 3.0, Albumin/Globulin Ratio 1.2 Result diagrams: 07/22/20 14:20 07/22/20 14:20 Orders (Tests/Meds): ED MEDICATIONS Generic Name Dose Route Start Last Admin Trade Name Freq PRN Reason Stop Dose Admin Dexamethasone Sodium Phosphate 4 mg 07/22/20 23:00 Dexamethasone 4mg/Ml 1ml Vial IV 08/21/20 22:59 QID RENAY Discontinued Medications Generic Name Dose Route Start Last Admin Trade Name Freq PRN Reason Stop Dose Admin Dexamethasone Sodium Phosphate 10 mg 07/22/20 16:05 07/22/20 16:25 Dexamethasone 4mg/Ml 1ml Vial IV 07/22/20 16:06 10 mg ONCE ONE Administration ORDERS Category Date Time Status Troponin I Q3H Lab 07/22/20 17:30 Ordered Troponin I Q3H Lab 07/22/20 20:30 Ordered Urinalysis and Microscopic Stat Lab 07/22/20 14:52 Ordered Medical Decision Narrative: Patient is a 70-year-old male presenting with waxing and waning mental status changes. On arrival, he has a GCS of 14 as he appears to be intermittently confused but does follow simple commands without any focal deficits. EKG negative for ischemia/dysrhythmia on arrival. At this time, differential is quite broad. Differential diagnosis does include acidosis versus electrolyte abnormality versus ischemia versus infectious process versus uremic encephalopathy versus hepatic encephalopathy versus ICH/mass. At this time, broad-based work-up initiated including head imaging and lab work with infectious work-up. Although patient is intermittently confused, he is otherwise hemodynamically stable
[2020-07-22 14:30] VITALS: BP 144/83; PULSE 73
[2020-07-22 14:39] LABS: Basophils % 0.9 % (0.1-2.0); Eosinophils # 0.2 K/mm3 (0.0-0.4); Eosinophils % 3.6 % (0.1-12.0); Hematocrit 37.8 % (42.0-52.0); Hemoglobin 12.6 g/dL (14.1-18.0); Lymphocytes # 0.8 K/mm3 (0.7-4.5); Lymphocytes % 18.1 % (10-50); Mean Corpuscular HGB Conc 33.2 g/dL (31.8-35.4); Mean Corpuscular Hemoglobin 32.2 pg (27.0-31.2); Mean Corpuscular Volume 97.1 fl (80-94); Mean Platelet Volume 7.7 fl (7.4-10.4); Monocytes # 0.4 K/mm3 (0.1-1.0); Monocytes % 8.4 % (1.7-9.3); Neutrophils # 3.1 K/mm3 (1.8-7.8); Platelet Count 313 K/mm3 (142-424); Red Cell Distribution Width 16.1 % (11.5-17.5); White Blood Count 4.5 K/mm3 (4.8-10.8)
[2020-07-22 14:49] LABS: Chloride 99 mmol/L (98-107); Sodium 137 mmol/L (136-145)
[2020-07-22 14:50] LABS: Potassium 4.7 mmoL/L (3.5-5.1)
[2020-07-22 14:52] LABS: Alanine Aminotransferase 30 U/L (12-78); Albumin Level 3.5 g/dl (3.5-5.0); Albumin/Globulin Ratio 1.2 (1.1-1.8); Alkaline Phosphatase 114 U/L (38-126); Anion Gap 11.7 mEq/L (5-15); Aspartate Amino Transferase 39 U/L (17-59); Bilirubin,Total 0.7 mg/dl (0.2-1.3); Blood Urea Nitrogen 33 mg/dl (9-20); Carbon Dioxide 31 mmol/L (22.0-30.0); Creatinine Clearance Estimated 37 mL/min (50-200); Estimated Glomerular Filt Rate 33 ml/min (>60); GFR (African American) 40 ML/MIN (>60); Total Protein,Serum 6.5 g/dl (6.3-8.2)
--- NOTE | 2020-07-22 14:52 | CT_ITS ---
PROCEDURE: CT HEAD/BRAIN WO CON CLINICAL INDICATION: global weakness Altered mental status, altered level of consciousness, confusion, disorientation COMPARISON: CT HDWO CT HEAD W/O CONTRAST from 11/09/2013 TECHNIQUE: Axial images obtained. All CT scans at the facility use one or more dose reduction, viz: automated exposure control, ma/kV adjustment per patient size (including targeted exams where dose is matched to indication, i.e. head), or iterative reconstruction technique. FINDINGS: There is extensive vasogenic edema in the right frontal parietal and anterior temporal lobe. In the right basal ganglia there is a 1.7 cm hyperdense nodule. In the right frontal lobe there is a 3.4 cm cystic mass. There is midline shift to the left of approximately 1.4 cm. There is minimal prominence of the occipital and temporal horn of the left lateral ventricle. There is compression of the right lateral ventricle anterior horn by the mass effect in the right frontal lobe. The hyperdensity in the right basal ganglia measures approximately 34 Hounsfield units. This is not quite as dense as what 1 would expect for acute intracranial hemorrhage. IMPRESSION: Cystic mass in the right frontal lobe with a hyperdense mass in the right basal ganglia with vasogenic edema between the 2 causing moderate to severe mass effect in the right frontal lobe and midline shift of structures to the left by 1.4 cm with subfalcine herniation. 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 Two different metastatic lesions 1 cystic and 1 hyperdense on the right is an additional consideration. MRI of the brain without and with contrast enhancement suggested for further evaluation. Dr. Tadeo in the emergency room was notified of the above findings by telephone 07/22/2020 at 3:50 p.m. Dictated by: Dc Brown MD 07/22/2020 15:59 Dc Brown MD in [facility] 07/22/2020 15:59
[2020-07-22 14:53] LABS: Calcium 9.2 mg/dl (8.4-10.2); Glucose 276 mg/dl (74-100)
[2020-07-22 15:13] LABS: Troponin I < 0.01 ng/ml (0.00-0.034)
--- NOTE | 2020-07-22 15:33 | PC.NURSE ---
Pt returned from rad.
[2020-07-22 15:41] VITALS: BP 196/87; PULSE 66; O2SAT 97
--- NOTE | 2020-07-22 16:34 | PC.NURSE ---
calling [facility] at this time for neurosurgery
--- NOTE | 2020-07-22 16:51 | PC.NURSE ---
SPOKE WITH DR WERNER WITH [facility] AT AND HE HAS ACCEPTED PT TO ER
--- NOTE | 2020-07-22 16:57 | PC.NURSE ---
[facility] advised a room was being cleaned for the patient and someone would notify us when the room was ready. notified family on POC
[2020-07-22 16:58] VITALS: BP 154/78; PULSE 70; RESP 16; O2SAT 98
--- NOTE | 2020-07-22 18:39 | PC.NURSE ---
Calling report to [facility]
--- NOTE | 2020-07-22 18:46 | PC.NURSE ---
Called report to Aleshia @ [facility] All [employer] trucks tied up at the moment on other runs
[2020-07-22 18:53] VITALS: BP 153/79; PULSE 70; RESP 16; TEMP 36.8; O2SAT 98
== END 2020-07-22 19:31 | disposition other institution (70) ==
PROVIDERS: Emergency Provider Emergency Medicine; PCP Family Medicine
DX: G93.89 Other specified disorders of brain (principal); I25.10 Atherosclerotic heart disease of native coronary artery without angina pectoris; I25.2 Old myocardial infarction; I10 Essential (primary) hypertension; E03.9 Hypothyroidism, unspecified; K21.9 Gastro-esophageal reflux disease without esophagitis; E78.5 Hyperlipidemia, unspecified; E11.9 Type 2 diabetes mellitus without complications; F17.210 Nicotine dependence, cigarettes, uncomplicated; Z79.84 Long term (current) use of oral hypoglycemic drugs; Z79.899 Other long term (current) drug therapy
CPT/HCPCS: 70450; 80053; 84484; 85025; 93005; 96374; 99284

== ENCOUNTER → 2020-10-07 09:55 | Outpatient (CLI) | payer MEDICARE, SELFPAY ==
[2020-10-07 10:01] VITALS: BMI 37.0
[2020-10-07 10:26] LABS: Basophils # 0.1 K/mm3 (0-0.2); Basophils % 1.3 % (0.1-2.0); Eosinophils # 0.1 K/mm3 (0.0-0.4); Eosinophils % 1.5 % (0.1-12.0); Hematocrit 34.8 % (42.0-52.0); Hemoglobin 11.9 g/dL (14.1-18.0); Lymphocytes # 1.1 K/mm3 (0.7-4.5); Lymphocytes % 27.8 % (10-50); Mean Corpuscular HGB Conc 34.1 g/dL (31.8-35.4); Mean Corpuscular Hemoglobin 31.2 pg (27.0-31.2); Mean Corpuscular Volume 91.5 fl (80-94); Monocytes # 0.5 K/mm3 (0.1-1.0); Monocytes % 11.7 % (1.7-9.3); Neutrophils # 2.3 K/mm3 (1.8-7.8); Neutrophils % 57.7 % (37.0-80.0); Platelet Count 322 K/mm3 (142-424); Red Cell Distribution Width 14.6 % (11.5-17.5)
[2020-10-07 10:36] LABS: Alanine Aminotransferase 19 U/L (12-78); Albumin Level 3.4 g/dl (3.5-5.0); Albumin/Globulin Ratio 1.1 (1.1-1.8); Alkaline Phosphatase 121 U/L (38-126); Anion Gap 11.2 mEq/L (5-15); Aspartate Amino Transferase 31 U/L (17-59); Bilirubin,Total 0.3 mg/dl (0.2-1.3); Blood Urea Nitrogen 25 mg/dl (9-20); Carbon Dioxide 28 mmol/L (22.0-30.0); Chloride 100 mmol/L (98-107); Creatinine Clearance Estimated 63 mL/min (50-200); Estimated Glomerular Filt Rate 35 ml/min (>60); GFR (African American) 43 ML/MIN (>60); Globulin 3.1 g/dL (1.3-3.2); Glucose 169 mg/dl (74-100); Potassium 3.2 mmoL/L (3.5-5.1); Sodium 136 mmol/L (136-145); Total Protein,Serum 6.5 g/dl (6.3-8.2)
[2020-10-07 11:50] VITALS: BP 106/54; PULSE 78; RESP 20; TEMP 36.9; O2SAT 95
[2020-10-07 12:15] VITALS: BP 106/55; PULSE 76; RESP 20; TEMP 36.9; O2SAT 95
[2020-10-07 12:21] LABS: Thyroid Stimulating Hormone 0.32 uIU/mL (0.465-4.68)
[2020-10-07 12:45] VITALS: BP 106/55; PULSE 68; RESP 20; TEMP 36.9; O2SAT 95
[2020-10-07 13:15] VITALS: BP 112/74; PULSE 68; RESP 20; TEMP 36.9; O2SAT 95
[2020-10-07 13:45] VITALS: BP 107/55; PULSE 68; RESP 20; TEMP 36.9; O2SAT 95
[2020-10-08 18:16] LABS: Adrenocorticotropic Hormone 10.2 pg/mL (7.2-63.3)
--- NOTE | 2020-10-10 10:26 | DIET.NUTRFU ---
Nutritional consultation for first chemotherapy dose completed. Pt and his stated he has not had any GI/nutritional symptoms of concern, he is eating as normal. Encouraged pt to f/u with this RD at any time.
== END ==
LOC: INF 10:02
PROVIDERS: Visit Provider Internal Medicine Medical Oncology
DX: Z51.11 Encounter for antineoplastic chemotherapy (principal); C43.59 Malignant melanoma of other part of trunk; Z79.899 Other long term (current) drug therapy
CPT/HCPCS: 80053; 82024; 82533; 84443; 85025; 96413; 96415; 96417; J9228; J9299

== ENCOUNTER 2020-10-13 22:28 | Inpatient (IN) | payer MEDICARE, SELFPAY ==
[2020-10-13 22:28] VITALS: BP 112/76; PULSE 84; RESP 20; TEMP 36.8; O2SAT 98; BMI 33.0
[2020-10-13 22:29] VITALS: BMI 33.0
--- NOTE | 2020-10-13 22:32 | XR_ITS ---
PROCEDURE: XR CHEST PORTABLE CLINICAL HISTORY: AMS Altered mental status COMPARISON: CR CXR CHEST(2 VIEWS-NOT PORTABLE) from 11/09/2013 CR XR CHEST PORTABLE from 03/12/2020 FINDINGS: Unremarkable heart size. There is elevation of the right hemidiaphragm with right basilar atelectasis. There is increased density in the right upper lobe medially. There is mild prominence of the left hilum. No acute bony findings. IMPRESSION: 1. Elevated right hemidiaphragm with right basilar atelectasis. 2. Prominent left hilum. Upright PA and lateral chest or chest CT may provide further evaluation. Dictated by: Dc Brown MD 10/14/2020 05:35 Dc Brown MD in [facility] 10/14/2020 05:35
--- NOTE | 2020-10-13 22:32 | CT_ITS ---
PROCEDURE: CT HEAD/BRAIN WO CON CLINICAL INDICATION: AMS Altered mental status, altered level of consciousness, confusion, disorientation, brain cancer COMPARISON: CT CT HEAD/BRAIN WO CON from 07/22/2020 TECHNIQUE: Axial images obtained. All CT scans at the facility use one or more dose reduction, viz: automated exposure control, ma/kV adjustment per patient size (including targeted exams where dose is matched to indication, i.e. head), or iterative reconstruction technique. FINDINGS: New areas of hypodensity present in the cerebellum the right inferiorly and in the left occipital lobe. Hypodensity also noted in the right frontal lobe as before somewhat less apparent. The 16 mm focal hyperdensity previously noted in the right basal ganglia region is smaller measuring approximately 10 mm compared to 16 mm. Previously noted cystic mass in the right frontal lobe is smaller measuring 18 mm on today previously measuring 34 mm. This lesion is also somewhat less well-defined. The hypodensity remaining may be due to postsurgical encephalomalacia change. No acute intracranial hemorrhage. There has been an interval right frontal craniotomy. Small air-fluid levels are present in the maxillary sinuses and there is moderate mucosal thickening of the ethmoid sinuses. IMPRESSION: Overall, the findings are consistent with metastatic disease of the brain. There are 2 to new areas of decreased attenuation,one in the right cerebellum and one in the left occipital lobe consistent with metastatic foci with vasogenic edema. These would be better demonstrated and confirmed with MRI if clinically desired. The right basal ganglia lesion is less prominent and there has been interval surgery in the right frontal area with post craniotomy changes. Hypodensity right frontal area may be related to postsurgical encephalomalacia. Suggest MRI with an without contrast for further evaluation and confirmation Dictated by: Dc Brown MD 10/14/2020 06:06 Dc Brown MD in [facility] 10/14/2020 06:06
[2020-10-13 22:57] LABS: Adenovirus,PCR Not Detected (NotDetected); Bordetella Pertussis Not Detected (NotDetected); Chlamydophila Pneumoniae, PCR Not Detected (NotDetected); Coronavirus 229E Not Detected (NotDetected); Coronavirus NL63 Not Detected (NotDetected); Coronavirus OC43 Not Detected (NotDetected); Coronovirus HKU1,PCR Not Detected (NotDetected); Human Metapneumovirus Not Detected (NotDetected); Influenza A, PCR Not Detected (NotDetected); Influenza AH1, 2009 Not Detected (NotDetected); Influenza AH1, PCR Not Detected (NotDetected); Influenza AH3,PCR Not Detected (NotDetected); Influenza B, PCR Not Detected (NotDetected); Mycoplasma Pneumoniae, PCR Not Detected (NotDetected); Parainfluenza 1, PCR Not Detected (NotDetected); Parainfluenza 2, PCR Not Detected (NotDetected); Parainfluenza 3, PCR Not Detected (NotDetected); Parainfluenza 4, PCR Not Detected (NotDetected); Respiratory Syncytial Virus Not Detected (NotDetected); Rhinovirus/Enterovirus Not Detected (NotDetected)
[2020-10-13 23:01] LABS: Basophils % 0.2 % (0.1-2.0); Hematocrit 36.1 % (42.0-52.0); Hemoglobin 12.1 g/dL (14.1-18.0); Lymphocytes # 0.7 K/mm3 (0.7-4.5); Lymphocytes % 6.9 % (10-50); Mean Corpuscular HGB Conc 33.7 g/dL (31.8-35.4); Mean Corpuscular Hemoglobin 31.2 pg (27.0-31.2); Mean Corpuscular Volume 92.7 fl (80-94); Monocytes # 0.4 K/mm3 (0.1-1.0); Monocytes % 3.7 % (1.7-9.3); Neutrophils # 8.8 K/mm3 (1.8-7.8); Neutrophils % 89.2 % (37.0-80.0); Platelet Count 245 K/mm3 (142-424); Red Blood Count 3.89 M/mm3 (4.60-6.20); Red Cell Distribution Width 14.6 % (11.5-17.5); White Blood Count 9.9 K/mm3 (4.8-10.8)
[2020-10-13 23:05] LABS: Chloride 100 mmol/L (98-107); Sodium 138 mmol/L (136-145)
[2020-10-13 23:06] LABS: Potassium 3.3 mmoL/L (3.5-5.1)
--- NOTE | 2020-10-13 23:06 | PC.NURSE ---
Pt gone to CT
[2020-10-13 23:08] LABS: Alanine Aminotransferase 23 U/L (12-78); Albumin Level 3.2 g/dl (3.5-5.0); Albumin/Globulin Ratio 0.9 (1.1-1.8); Alkaline Phosphatase 99 U/L (38-126); Anion Gap 11.3 mEq/L (5-15); Aspartate Amino Transferase 50 U/L (17-59); Bilirubin,Total 0.6 mg/dl (0.2-1.3); Blood Urea Nitrogen 37 mg/dl (9-20); Carbon Dioxide 30 mmol/L (22.0-30.0); Creatinine Clearance Estimated 47 mL/min (50-200); Estimated Glomerular Filt Rate 27 ml/min (>60); GFR (African American) 33 ML/MIN (>60); Globulin 3.4 g/dL (1.3-3.2); Total Protein,Serum 6.6 g/dl (6.3-8.2)
[2020-10-13 23:09] LABS: Calcium 8.7 mg/dl (8.4-10.2); Glucose 178 mg/dl (74-100); Lactic Acid 1.4 mmol/L (0.7-2.1)
[2020-10-13 23:11] LABS: MANUAL DIFFERENTIAL MANUAL DIFFERENTIAL (MANUAL DIFF)
--- NOTE | 2020-10-13 23:13 | PC.NURSE ---
pt returned from CT
[2020-10-13 23:14] LABS: C-Reactive Protein 248.3 mg/L (0-4)
--- NOTE | 2020-10-13 23:20 | ECG_ITS ---
APPROVED REPORT Exam: Resting ECG HR:127 bpm ECG Measurements Heart Rate 127 AXES QRSd 68 QRS -50 QT 376 T 78 QTc 546 Conclusion Accelerated Junctional rhythm with premature supraventricular complexes and fusion complexes Left axis deviation Low voltage QRS Old septal and inferior changes Abnormal ECG Electronically signed by : Abilio Scott, 10/14/2020 06:32:21
[2020-10-13 23:23] LABS: Troponin I 0.07 ng/ml (0.00-0.034)
[2020-10-13 23:42] VITALS: BP 129/86; PULSE 110; RESP 16; O2SAT 95
[2020-10-13 23:52] LABS: Erythrocyte Sedimentation Rate > 140 mm/hr (0-20)
[2020-10-14] VITALS (12 sets, daily range): BP systolic 90–157; BP diastolic 47–90; PULSE 68–118; RESP 18–22; TEMP 36.5–37.8; O2SAT 90–97; BMI 33.6
[2020-10-14 00:19] LABS: Coronavirus 19, PCR Detected (NotDetected)
--- NOTE | 2020-10-14 00:19 | HMH.EDAMS ---
ED Disposition Clinical Impression: Acute delirium, Metabolic brain disease, COVID-19 CRI (chronic renal insufficiency) Qualifiers: Chronic kidney disease stage: stage 3 (moderate) Chronic kidney disease stage 3 subtype: unspecified whether 3a or 3b Qualified Code(s): N18.30 - Chronic kidney disease, stage 3 unspecified CAD (coronary artery disease) Qualifiers: Coronary Disease-Associated Artery/Lesion type: [place] artery [place] vs. transplanted heart: red devil heart Associated angina: with unspecified angina Qualified Code(s): I25.119 - Atherosclerotic heart disease of [place] coronary artery with unspecified angina pectoris Disposition: Admitted As Inpatient Condition on Discharge: Serious - Critical Care Critical Care Time: No Attestation: On 10/13/20, the high probability of a clinically significant, sudden or life threatening deterioration of the following system(s) required my full and direct attention, intervention and personal management. The time I documented below is in addition to time spent performing reported procedures but includes the following listed in this critical care notation. Medical Decision Making - Medical Records Medical records reviewed: Yes: I reviewed the patient's medical records. - Anjum Inquiry Pt receiving controlled substance: No Vital Signs: 10/13/20 22:28 10/13/20 23:42 10/14/20 00:37 Temperature 98.2 F Temperature Source Oral Pulse Rate [Left] 84 110 H 118 H Respiratory Rate 20 16 22 Blood Pressure [Right Arm] 112/76 129/86 157/90 H Blood Pressure Mean [Right Arm] 88 100 112 Blood Pressure Source [Right Arm] Automatic Cuff Automatic Cuff Automatic Cuff Blood Pressure Position [Right Arm] Sitting Sitting Sitting 02 Sat by Pulse Oximetry 98 95 97 Oxygen Delivery Method Nasal Cannula Nasal Cannula Nasal Cannula Oxygen Flow Rate (LPM) 2 2 2 - Lab Data Lab results reviewed: Yes: I reviewed the patient's lab results. Lab Results 10/13/20 22:45: Chlamy pneumoniae PCR Not detected, Adenovirus (PCR) Not detected, B. pertussis DNA (PCR) Not detected, Coronavirus OC43 (PCR) Not detected, Coronavirus HKU1 (PCR) Not detected, Coronavirus 229E (PCR) Not detected, SARS-CoV-2 (PCR) Detected A, Coronavirus NL63 (PCR) Not detected, Human Metapneumovir PCR Not detected, Influenza A (H1) PCR Not detected, Influ A (H1N1/09) PCR Not detected, Influenza A (H3) PCR Not detected, Influenza Type A (PCR) Not detected, Influenza Type B (PCR) Not detected, M. pneumoniae (PCR) Not detected, Parainfluenza 1 (PCR) Not detected, Parainfluenza 2 (PCR) Not detected, Parainfluenza 3 (PCR) Not detected, Parainfluenza 4 (PCR) Not detected, RSV (PCR) Not detected, Entero/Rhino (PCR) Not detected 10/13/20 22:45: WBC 9.9, RBC 3.89 L, Hgb 12.1 L, Hct 36.1 L, MCV 92.7, MCH 31.2, MCHC 33.7, RDW 14.6, Plt Count 245, MPV 8.0, Neut % (Auto) 89.2 H, Lymph % (Auto) 6.9 L, [place] % (Auto) 3.7, Eos % (Auto) 0.0 L, Baso % (Auto) 0.2, Neut # (Auto) 8.8 H, Lymph # (Auto) 0.7, [place] # (Auto) 0.4, Eos # (Auto) 0.0, Baso # (Auto) 0.0, Total Counted 100, Neutrophils % (Manual) 96 H, Lymphocytes % (Manual) 4 L, Platelet Estimate Normal, RBC Morphology Not Reportable, Ovalocytes 1+, ESR > 140 H 10/13/20 22:45: Sodium 138, Potassium 3.3 L, Chloride 100, Carbon Dioxide 30, Anion Gap 11.3, BUN 37 H, Creatinine 2.40 H, Estimated Creat Clear 47, Estimated GFR 27 L, Est GFR ( Amer) 33 L, Glucose 178 H, Calcium 8.7, Total Bilirubin 0.6, AST 50, ALT 23, Alkaline Phosphatase 99, Troponin I 0.07 H, C-Reactive Protein 248.3 H, Total Protein 6.6, Albumin 3.2 L, Globulin 3.4 H, Albumin/Globulin Ratio 0.9 L 10/13/20 22:45: Lactate 1.4 10/14/20 00:01: Urine Color Yellow, Urine Appearance Clear, Urine pH 6.0, Ur Specific [place] 1.025, Urine Protein 2+, Urine Glucose (UA) Negative, Urine Ketones Negative, Urine Blood 3+, Urine Nitrate Negative, Urine Bilirubin Negative, Urine Urobilinogen 0.2, Ur Leukocyte Esterase Negative, Urine WBC 3-5, Amorphous Sediment
--- NOTE | 2020-10-14 00:19 | PC.NURSE ---
Lab called with Positive COVID test, Dr Hooper notified
[2020-10-14 00:23] LABS: Microscopic, Urine URINE MICROSCOPIC (MICROSCOPIC)
[2020-10-14 00:29] LABS: Appearance,Urine CLEAR (Clear); Blood, Urine 3+ (Negative); Color,Urine YELLOW (Yellow); Glucose,Urine (UA) Negative (Negative); Ketones,Urine Negative (Negative); Leukocyte Esterase,Urine Negative (Negative); Nitrate,Urine Negative (Negative); Protein,Urine 2+ (Negative); Specific Gravity, Urine 1.025 (1.005-1.030); Urobilinogen,Urine 0.2 EU/dl (0.2)
[2020-10-14 00:49] LABS: Bilirubin,Urine Negative (Negative)
[2020-10-14 00:51] LABS: Amorphous Sediment,Urine Trace /lpf; Bacteria,Urine 1+ /lpf
[2020-10-14 00:56] LABS: Lymphocytes % 4 % (10-50); Neutrophils % 96 % (42-76); Total Cells Counted 100
[2020-10-14 00:57] LABS: Ovalocytes 1+; Platelet Estimate Normal
--- NOTE | 2020-10-14 01:02 | PC.NURSE ---
Dr. Forest finch
--- NOTE | 2020-10-14 01:08 | PC.NURSE ---
Spoke with Leonel from pharmacy and confirmed 10mg of decadron
--- NOTE | 2020-10-14 01:11 | PC.NURSE ---
speaking with Dr. Garg
--- NOTE | 2020-10-14 01:16 | PC.NURSE ---
Notified house of admission
[2020-10-14 01:21] LABS: Troponin I 0.07 ng/ml (0.00-0.034)
--- NOTE | 2020-10-14 03:31 | PC.NURSE ---
He is alert to name. Lung sounds with rhonchi t/o. He continues on 2LPM n/c.F/c is patent and draining yellow, clear urine. He is resting in bed. Oral cavity is dry. Oral care provided. He denies pain His speech is clear.
[2020-10-14 04:53] LABS: POC Glucose,Bedside 172 (70-110)
[2020-10-14 06:56] LABS: Basophils % 0.3 % (0.1-2.0); Eosinophils % 0.3 % (0.1-12.0); Hematocrit 34.1 % (42.0-52.0); Hemoglobin 11.4 g/dL (14.1-18.0); Lymphocytes # 0.5 K/mm3 (0.7-4.5); Lymphocytes % 4.8 % (10-50); Mean Corpuscular HGB Conc 33.4 g/dL (31.8-35.4); Mean Corpuscular Hemoglobin 31.5 pg (27.0-31.2); Mean Corpuscular Volume 94.4 fl (80-94); Mean Platelet Volume 7.8 fl (7.4-10.4); Monocytes # 0.3 K/mm3 (0.1-1.0); Monocytes % 3.5 % (1.7-9.3); Neutrophils % 91.2 % (37.0-80.0); Platelet Count 227 K/mm3 (142-424); Red Blood Count 3.61 M/mm3 (4.60-6.20); Red Cell Distribution Width 14.8 % (11.5-17.5); White Blood Count 9.9 K/mm3 (4.8-10.8)
[2020-10-14 07:04] LABS: Anion Gap 13.3 mEq/L (5-15); Blood Urea Nitrogen 38 mg/dl (9-20); Calcium 8.4 mg/dl (8.4-10.2); Carbon Dioxide 24 mmol/L (22.0-30.0); Chloride 103 mmol/L (98-107); Creatinine Clearance Estimated 45 mL/min (50-200); Estimated Glomerular Filt Rate 27 ml/min (>60); GFR (African American) 33 ML/MIN (>60); Glucose 196 mg/dl (74-100); Potassium 3.3 mmoL/L (3.5-5.1); Sodium 137 mmol/L (136-145)
--- NOTE | 2020-10-14 08:20 | HMH.HP ---
*Admission Date: 10/14/20 <SonSteve choia - 10/14/20 08:23> *Chief complaint: Altered Mental Status <SonStevea 10/14/20 08:23> *History of present illness: Mr. Cifuentes is a 70yo white male with history of T2DM, HTN, CKD, ASCVD with DC, GERD, HLP, TIA, depression, and nicotine use who was diagnosed with metastatic melanoma in July of 2020 and subsequently underwent surgery followed by chemo and radiation. History is obtained from ER record as the patient is unable to provide at this time. He had followup and chemo last week with Dr. Kimble. His described a one-day history of increasing confusion and decline in mental status. She reported that he had not gotten out of bed yesterday and was not able to follow commands. She denied any fever or seizure activity. Thus, he was brought to the ED for evaluation. Upon arrival, CXR showed an elevated right hemidiaphragm with right basilar atelectasis as well as prominent left hilum. CT of the head showed two new areas of decreased attenuation consistent with metastatic foci with vasogenic edema as well as post surgical changes and suggested MRI for further evaluation if desired. EKG showed nonspecific ST-T wave changes. Laboratory workup was significant for decreased potassium at 3.3 and renal function with BUN 37, Cr 2.40, and GFR 27. His ESR and CRP were elevated. Initial troponin was mildly elevated at 0.07 with repeat level troponin remaining stable. His nasal PCR was positive for SARS-COV-2 which was a new diagnosis. He was admitted to the COVID unit for further evaluation and management. This morning, he is arousable only with repeated verbal and tactile stimulation and falls back to sleep quickly. He is oriented to self. He denies any pain. <Sharon Cline 10/14/20 09:31> [facility] History I have reviewed the patient's past medical history: Yes <Sharon Cline 10/14/20 09:31> Medical History: Reports:: Atherosclerotic Heart Disease, Cancer (Brain Cancer.), Coronary Artery Disease, Depression, Diabetes Mellitus Type 2, Gastroesophageal Reflux Disease(GERD), Hyperlipidemia, Hypertension, Kidney Stones, Myocardial Infarction, Renal Disease, Transient Ischemic Attacks (TIA) Denies:: Diabetes Mellitus Type 1 <Sharon Cline 10/14/20 09:31> *Have you ever received a pneumonia vaccine?: No <Sharon Cline 10/14/20 08:23> *Have you received a flu vaccine this season?: No <Steve Cline10/14/20 08:23> Other Medical History: Reports: Arthritis, Chemotherapy, Hypothyroidism, Radiation Therapy, Thyroid Disease, Other <Steve Cline10/14/20 09:31> Comment:: melanoma with mets to brain, thyroid ca <SonSharon - 10/14/20 09:31> Laterality Cases: Bilateral: Cataract, Total Knee Replacement <Steve Cline10/14/20 09:31> Other Surgeries: Yes: Cancer Surgery, Cardiac Catheterization, Colonoscopy, Coronary Stent, Thyroidectomy <Steve Cline10/14/20 09:31> Amputation: No <Steve Cline10/14/20 08:23> Fractures: Yes <Steve Cline10/14/20 08:23> - *Social History Smoking Status: Current every day smoker <Steve Cline10/14/20 09:31> Tobacco Type: cigarettes <Steve Cline10/14/20 08:23> # Packs/Day (cigarettes): 1 <Son10/14/20 08:23> #Yrs smoked (if former smoker): 40 <SonSharon - 10/14/20 09:31> Alcohol Intake: never <Steve Cline10/14/20 08:23> Substance Use Type: denies use <Steve Cline10/14/20 08:23> *Occupational Status:: retired <Steve Cline10/14/20 08:23> Housing: house <Steve Cline10/14/20 08:23> Household Members: spouse <Steve Cline10/14/20 08:23> *Travel in the last 8 weeks: None <Steve Cline10/14/20 08:23> - Psychiatric History Pschychiatric History:: Reports:: Depression <Sharon Cline 10/14/20 08:23> Family Hx:: Cancer, Heart Attack <Sharon Cline 10/14/20 09:31> Review of Systems - Review of Systems Review of systems:: unable to obtain <Sharon Cline - 10/14/20 09:31> - *Neurologic Reports confusion, Denies localized weakness, Denies headache(s), Denies se
--- NOTE | 2020-10-14 08:37 | HMH.PHAVTE ---
[facility] Pharmacy VTE Monitoring - Patient Demographics Admission date: 10/14/20 Report Date: 10/14/20 Time: 08:38 Allergies/Adverse Reactions: Patient Allergies No Known Allergies Allergy (Verified 10/14/20 03:05) Height: 1.8 m Weight: 109.406 kg Patient Problems: Current Active Problems Acute delirium (Acute) Metabolic brain disease (Acute) COVID-19 (Acute) CRI (chronic renal insufficiency) (Chronic) CAD (coronary artery disease) (Chronic) - VTE Risk Labs: VTE Related Lab Results Hgb 11.4 g/dL (14.1-18.0) L 10/14/20 06:00 Hct 34.1 % (42.0-52.0) L 10/14/20 06:00 Plt Count 227 K/mm3 (142-424) 10/14/20 06:00 BUN 38 mg/dl (9-20) H 10/14/20 06:00 Creatinine 2.40 mg/dl (0.66-1.25) H 10/14/20 06:00 Estimated Creat Clear 45 mL/min (50-200) 10/14/20 06:00 Was VTE Risk Assessment Performed: Yes VTE Score: 2 VTE Risk Level: Very Low Risk Clinical Trial Participant: No - Prophylaxis VTE Prophylaxis Ordered?: Yes Types of VTE Prophylaxis: TEDS Knee High, Pharmacological Pharmacologic Type: Enoxaparin
[2020-10-14 12:05] LABS: Occult Blood,Stool Negative (Negative)
[2020-10-14 12:34] LABS: POC Glucose,Bedside 221 (70-110)
[2020-10-14 16:32] LABS: POC Glucose,Bedside 256 (70-110)
--- NOTE | 2020-10-14 18:42 | PC.NURSE ---
shift note: pt is alert to name. Mild confusion. Poor appetite. Refusing to eat. Will drink sips of water and sprite. Castillo catheter changed this morning d/t prior catheter leaking around insertion site. Pt now has an 18fr castillo. It's no longer leaking. UOP decreased and concentrated. O2 @ 4L NC. Sats low-mid 90s. NSR on tele with occasional PVCs. Normotensive. No other issues noted.
[2020-10-14 21:33] LABS: POC Glucose,Bedside 222 (70-110)
[2020-10-15] VITALS (13 sets, daily range): BP systolic 80–112; BP diastolic 40–81; PULSE 76–110; RESP 18–30; TEMP 37.1–38; O2SAT 85–98; BMI 34.7; BMI 34.9
--- NOTE | 2020-10-15 01:16 | PC.NURSE ---
He would not answer any questions including his name during assessment. He has been resting in bed. No signs of pain or distress. Currently on O2 at 4LPM n/c. Voiding per f/c. No BM thus far this shift.
[2020-10-15 05:30] LABS: POC Glucose,Bedside 249 (70-110)
[2020-10-15 07:05] LABS: Basophils % 0.1 % (0.1-2.0); Hematocrit 32.9 % (42.0-52.0); Hemoglobin 10.7 g/dL (14.1-18.0); Lymphocytes # 0.4 K/mm3 (0.7-4.5); Lymphocytes % 4.5 % (10-50); Mean Corpuscular HGB Conc 32.5 g/dL (31.8-35.4); Mean Corpuscular Hemoglobin 31.1 pg (27.0-31.2); Mean Corpuscular Volume 95.5 fl (80-94); Mean Platelet Volume 8.9 fl (7.4-10.4); Monocytes # 0.4 K/mm3 (0.1-1.0); Monocytes % 4.9 % (1.7-9.3); Neutrophils # 8.1 K/mm3 (1.8-7.8); Neutrophils % 90.4 % (37.0-80.0); Platelet Count 237 K/mm3 (142-424); Red Blood Count 3.45 M/mm3 (4.60-6.20)
[2020-10-15 07:10] LABS: MANUAL DIFFERENTIAL MANUAL DIFFERENTIAL (MANUAL DIFF)
[2020-10-15 07:16] LABS: Anion Gap 10.6 mEq/L (5-15); Blood Urea Nitrogen 52 mg/dl (9-20); Carbon Dioxide 25 mmol/L (22.0-30.0); Chloride 105 mmol/L (98-107); Creatinine Clearance Estimated 41 mL/min (50-200); Potassium 3.6 mmoL/L (3.5-5.1); Sodium 137 mmol/L (136-145)
[2020-10-15 07:17] LABS: Alanine Aminotransferase 30 U/L (12-78); Albumin Level 2.4 g/dl (3.5-5.0); Albumin/Globulin Ratio 0.8 (1.1-1.8); Alkaline Phosphatase 72 U/L (38-126); Aspartate Amino Transferase 68 U/L (17-59); Bilirubin,Total 0.2 mg/dl (0.2-1.3); Calcium 7.8 mg/dl (8.4-10.2); Estimated Glomerular Filt Rate 24 ml/min (>60); GFR (African American) 28 ML/MIN (>60); Globulin 2.9 g/dL (1.3-3.2); Glucose 264 mg/dl (74-100); Total Protein,Serum 5.3 g/dl (6.3-8.2)
--- NOTE | 2020-10-15 08:45 | PC.NURSE ---
Dr. Duff rounded and ordered to increase MIVF to 200mL/hr x 2 liters. He will put order in. Rate increased to 200mL/hr while rounding.
[2020-10-15 09:17] LABS: Lymphocytes % 12 % (10-50); Monocytes % 3 % (2-9); Neutrophils % 84 % (42-76); Platelet Estimate Normal; RBC Morphology Normal; Total Cells Counted 100
--- NOTE | 2020-10-15 10:00 | XR_ITS ---
PROCEDURE: XR CHEST PORTABLE CLINICAL HISTORY: hypoxia, Covid 19 COMPARISON: CR CXR CHEST(2 VIEWS-NOT PORTABLE) from 11/09/2013 CR XR CHEST PORTABLE from 03/12/2020 CR XR CHEST PORTABLE from 10/13/2020 FINDINGS: The cardiomediastinal silhouette and pulmonary vascularity are within normal limits. Right hemidiaphragm is elevated with right basilar atelectasis. Surgical clips are present in the paratracheal region. Minimal atelectatic changes are present in the left lower lobe. Hilum on the right is less apparent compared to the previous finding exam. No acute bony abnormalities. IMPRESSION: No change elevated right hemidiaphragm with right basilar atelectasis Dictated by: Dc Brown MD 10/15/2020 17:11 Dc Brown MD in [place] 10/15/2020 17:11
--- NOTE | 2020-10-15 10:01 | HMH.ACPN2 ---
Internal Medicine - PN: Tamera *Date: 10/15/20 *Time: 10:01 Interval history: No new issues noted overnight. Exam Vital signs and Labs for Last 24 Hours: Temp Pulse Resp BP Pulse Ox 100.3 F H 102 H 25 H 108/72 L 90 L 10/15/20 07:33 10/15/20 07:33 10/15/20 07:33 10/15/20 07:33 10/15/20 07:33 Laboratory Results - last 24 hr 10/14/20 11:05: Stool Occult Blood Negative 10/14/20 12:26: POC Glucose 221 H 10/14/20 16:25: POC Glucose 256 H 10/14/20 21:20: POC Glucose 222 H 10/15/20 05:21: POC Glucose 249 H 10/15/20 06:30: Sodium 137, Potassium 3.6, Chloride 105, Carbon Dioxide 25, Anion Gap 10.6, BUN 52 H D, Creatinine 2.70 H, Estimated Creat Clear 41, Estimated GFR 24 L, Est GFR ( Amer) 28 L, Glucose 264 H, Calcium 7.8 L, Total Bilirubin 0.2, AST 68 H D, ALT 30 D, Alkaline Phosphatase 72, Total Protein 5.3 L, Albumin 2.4 L D, Globulin 2.9, Albumin/Globulin Ratio 0.8 L 10/15/20 06:30: WBC 9.0, RBC 3.45 L, Hgb 10.7 L, Hct 32.9 L, MCV 95.5 H, MCH 31.1, MCHC 32.5, RDW 15.0, Plt Count 237, MPV 8.9, Neut % (Auto) 90.4 H, Lymph % (Auto) 4.5 L, [place] % (Auto) 4.9, Eos % (Auto) 0.0 L, Baso % (Auto) 0.1, Neut # (Auto) 8.1 H, Lymph # (Auto) 0.4 L, [place] # (Auto) 0.4, Eos # (Auto) 0.0, Baso # (Auto) 0.0, Total Counted 100, Neutrophils % (Manual) 84 H, Band Neutrophils % 1.0, Lymphocytes % (Manual) 12, Monocytes % (Manual) 3, Platelet Estimate Normal, RBC Morphology Normal Vital Signs - 24 hr 10/14/20 12:00 10/14/20 16:00 10/14/20 19:49 Temperature 98.6 F 98.0 F 100.1 F H Pulse Rate 70 81 Pulse Rate [Left] 68 81 97 H Respiratory Rate 18 20 20 Blood Pressure [Right Arm] 95/47 L 114/60 130/79 02 Sat by Pulse Oximetry 94 L 92 L 91 L 10/14/20 20:00 10/14/20 23:14 10/15/20 00:00 Temperature 98.7 F Pulse Rate 100 H 110 H Pulse Rate [Left] 96 H 100 H Respiratory Rate 18 Blood Pressure [Right Arm] 90/50 L 106/53 L 02 Sat by Pulse Oximetry 91 L 93 L 10/15/20 04:00 10/15/20 07:33 Temperature 100.4 F H 100.3 F H Pulse Rate 100 H Pulse Rate [Left] 104 H 102 H Respiratory Rate 20 25 H Blood Pressure [Right Arm] 95/60 L 108/72 L 02 Sat by Pulse Oximetry 98 90 L I & O for Last 24 hours: Intake & Output 10/12/20 10/13/20 10/14/20 10/15/20 23:59 23:59 23:59 23:59 Intake Total 1595 / 1605 1464 / 1464 Output Total 100 / 100 100 / 100 Balance 1495 / 1505 1364 / 1364 Weight 250 lb 241 lb 3.2 oz 248 lb 4 oz - Constitutional no acute distress - *Routine HEENT Exam Head: Present: normocephalic Eye: Present: EOMI ENT: Present: mucous membranes moist - *Routine Neck Exam Present: supple. Absent: lymphadenopathy - *Routine Respiratory Exam Present: crackles (few bibasilar), diminished air movement (right base). Absent: wheezes - *Routine Cardiovascular Exam Present: RRR - *Routine Abdominal Exam Present: soft, normoactive bowel sounds. Absent: tenderness - *Routine Extremities Exam Absent: cyanosis, clubbing, edema - *Routine Skin Exam Present: warm. Absent: rash - *Routine Neurological Exam Present: alert Assessment and Plan (1) Acute delirium Status: Acute Category: Medical Code(s): R41.0 - Disorientation, unspecified (2) COVID-19 Status: Acute Category: Medical Code(s): U07.1 - COVID-19 (3) Metabolic brain disease Status: Acute Category: Medical Code(s): G93.41 - Metabolic encephalopathy (4) Altered mental state Status: Resolved Qualifiers: Altered mental status type: disorientation Qualified Code(s): R41.0 - Disorientation, unspecified Category: Medical Code(s): R41.82 - Altered mental status, unspecified (5) Diabetes mellitus Status: Chronic Qualifiers: Diabetes mellitus type: type 2 Diabetes mellitus [facility] insulin use: unspecified [facility] insulin use status Diabetes mellitus complication status: with other specified complication Qualified Code(s): E11.69 - Type 2 diabetes mellitus with other specified comp
[2020-10-15 11:04] LABS: POC Glucose,Bedside 274 (70-110)
--- NOTE | 2020-10-15 11:17 | PC.NURSE ---
O2 sat mid 80s on 4L NC. Increased liter flow to 5L and called RT to NT suction. He has a productive cough but is unable to get it up.
[2020-10-15 11:51] LABS: ABG Base Excess -5.6 mmol/L (-2.4-2.3); ABG HCO3 19.2 mmhg (22.0-26.0); ABG Oxygen Saturation 89 % (90-100); ABG PCO2 31.5 mmhg (35.0-45.0); ABG PO2 55.1 mmhg (80-100); ABG TCO2 20.1 mmhg (23-27)
[2020-10-15 11:55] LABS: Allen's Test ACCEPTABLE; Oxygen 5 %; Source Right Radial
--- NOTE | 2020-10-15 12:03 | PC.NURSE ---
ABG reveals pO2 55.1. RT switched 5L NC to 50% venti mask. Pt unable to to chew and swallow a pork chop. Switched diet to soft mechanical. Dr. Duff updated.
--- NOTE | 2020-10-15 12:36 | PC.NURSE ---
pt becoming agitated, restless and pulling O2 off. Bilateral hand mittens placed for safety.
[2020-10-15 13:28] LABS: Prolactin 11.5 ng/mL (4.0-15.2)
--- NOTE | 2020-10-15 15:56 | PC.NURSE ---
updated Dr. Duff regarding pt's declining status. He ordered to switch venti mask to Vapotherm.
--- NOTE | 2020-10-15 16:17 | PC.NURSE ---
Vapotherm 40L/60% initiated.
--- NOTE | 2020-10-15 16:33 | PC.NURSE ---
Vapotherm increased to 80% FiO2.
[2020-10-15 17:29] LABS: POC Glucose,Bedside 283 (70-110)
--- NOTE | 2020-10-15 18:43 | PC.WOUNDNOTE ---
Wound Location: left buttock stage I Length: 1cm Width: 1cm Depth: Undermining Y/N: Tunneling cm: Granulation %: Slough/necrotic tissue %: Inflammation/swelling Y/N: Pain and/or tenderness Y/N: Exudate: Serosanguinous Sanguinous Serosanguinous Seropurulent Purulent Color: Clear [place] Cloudy/milky [place] Red Green Yellow Brown Tran Blue Consistency: Thick Thin Amount: scant None Scant Small Moderate Large Odor Y/N: Y
[2020-10-15 20:45] LABS: POC Glucose,Bedside 222 (70-110)
[2020-10-16] VITALS (29 sets, daily range): BP systolic 92–131; BP diastolic 50–98; PULSE 70–100; RESP 18–31; TEMP 36.7–38.1; O2SAT 89–97; BMI 35.9
--- NOTE | 2020-10-16 01:09 | PC.NURSE ---
2229 dr. lugo notified of systolic blood pressures running in the 80s with map below 60. new orders received and carried out. 200 ml ns bolus given and ivf increased to 150ml/hr.
--- NOTE | 2020-10-16 01:17 | PC.NURSE ---
2200 informed by lab that the plasma that was ordered after thawed bag had hole in it and was leaking. new plasma ordered from [facility], will take 4-5 hours before receiving for thransfusion.
--- NOTE | 2020-10-16 04:41 | PC.NURSE ---
patient coughing but unable to clear secretions, nt suction performed. moderate amount of tenacious yellow wade secretions obtained. patient tolerated failrly. sats prior to 88% on 25 l 60% after sats 90-92%
--- NOTE | 2020-10-16 04:59 | PC.NURSE ---
checked on status of plasma with lab, blood bank has not received notafication for sheepskin pickler from [facility]
[2020-10-16 06:24] LABS: Basophils % 0.1 % (0.1-2.0); Eosinophils % 0.1 % (0.1-12.0); Hematocrit 34.4 % (42.0-52.0); Hemoglobin 10.7 g/dL (14.1-18.0); Lymphocytes # 0.3 K/mm3 (0.7-4.5); Lymphocytes % 4.6 % (10-50); Mean Corpuscular HGB Conc 31.2 g/dL (31.8-35.4); Mean Corpuscular Volume 99.3 fl (80-94); Mean Platelet Volume 8.6 fl (7.4-10.4); Monocytes # 0.4 K/mm3 (0.1-1.0); Monocytes % 5.1 % (1.7-9.3); Neutrophils # 6.2 K/mm3 (1.8-7.8); Platelet Count 237 K/mm3 (142-424); Red Blood Count 3.46 M/mm3 (4.60-6.20); Red Cell Distribution Width 15.4 % (11.5-17.5); White Blood Count 6.9 K/mm3 (4.8-10.8)
--- NOTE | 2020-10-16 06:26 | PC.NURSE ---
shift summary vapotherm settings have been decreased this shift, coughing has decreased since deep suctioning, o2 sats have remained reater than 92%. has not slept much this shift but has remained calm until last 30 min during which he has had one episode where he pulled o2 and sat probe off. patient redirected well. castillo to gravity, clear yellow urine. cardiac cath technician shows sr/st.
[2020-10-16 06:41] LABS: MANUAL DIFFERENTIAL MANUAL DIFFERENTIAL (MANUAL DIFF)
[2020-10-16 06:44] LABS: Alanine Aminotransferase 40 U/L (12-78); Albumin Level 2.4 g/dl (3.5-5.0); Albumin/Globulin Ratio 0.8 (1.1-1.8); Alkaline Phosphatase 64 U/L (38-126); Anion Gap 10.4 mEq/L (5-15); Aspartate Amino Transferase 96 U/L (17-59); Bilirubin,Total 0.4 mg/dl (0.2-1.3); Blood Urea Nitrogen 59 mg/dl (9-20); Calcium 7.8 mg/dl (8.4-10.2); Carbon Dioxide 21 mmol/L (22.0-30.0); Chloride 108 mmol/L (98-107); Creatinine Clearance Estimated 44 mL/min (50-200); Estimated Glomerular Filt Rate 25 ml/min (>60); GFR (African American) 30 ML/MIN (>60); Glucose 240 mg/dl (74-100); Potassium 5.4 mmoL/L (3.5-5.1); Sodium 134 mmol/L (136-145); Total Protein,Serum 5.4 g/dl (6.3-8.2)
--- NOTE | 2020-10-16 08:51 | HMH.ACPN2 ---
Internal Medicine - PN: Subj *Date: 10/16/20 *Time: 08:51 Interval history: Patient has been very confused and combative throughout the night. Nursing states he has been trying to rip out his IV and take off his Vapotherm. He had mittens placed and is sleeping this morning. He did not get his convalescent plasma last night due to the bag leaking. Another bag is apparently on the way. They are concerned that his potassium is elevated and feel his fluids may need to be changed. Exam Vital signs and Labs for Last 24 Hours: Temp Pulse Resp BP Pulse Ox 100.3 F H 100 H 24 123/73 93 L 10/16/20 08:00 10/16/20 08:00 10/16/20 08:00 10/16/20 08:00 10/16/20 08:00 Laboratory Results - last 24 hr 10/13/20 22:45: Prolactin 11.5 10/15/20 06:30: Total Counted 100, Neutrophils % (Manual) 84 H, Band Neutrophils % 1.0, Lymphocytes % (Manual) 12, Monocytes % (Manual) 3, Platelet Estimate Normal, RBC Morphology Normal 10/15/20 10:55: POC Glucose 274 H 10/15/20 11:21: Specimen Source Right radial, O2 % 5, ABG pH 7.40, ABG pCO2 31.5 L, ABG pO2 55.1 L, ABG HCO3 19.2 L, ABG Total CO2 20.1 L, ABG O2 Saturation 89 L, ABG Base Excess -5.6 L, Dc Test Acceptable 10/15/20 17:20: Blood Type O Negative 10/15/20 17:22: POC Glucose 283 H 10/15/20 20:37: POC Glucose 222 H 10/16/20 05:55: Sodium 134 L, Potassium 5.4 H D, Chloride 108 H, Carbon Dioxide 21 L, Anion Gap 10.4, BUN 59 H, Creatinine 2.60 H, Estimated Creat Clear 44, Estimated GFR 25 L, Est GFR ( Amer) 30 L, Glucose 240 H, Calcium 7.8 L, Total Bilirubin 0.4, AST 96 H D, ALT 40 D, Alkaline Phosphatase 64, Total Protein 5.4 L, Albumin 2.4 L, Globulin 3.0, Albumin/Globulin Ratio 0.8 L 10/16/20 05:55: WBC 6.9, RBC 3.46 L, Hgb 10.7 L, Hct 34.4 L, MCV 99.3 H, MCH 31.0, MCHC 31.2 L, RDW 15.4, Plt Count 237, MPV 8.6, Neut % (Auto) 90.0 H, Lymph % (Auto) 4.6 L, [place] % (Auto) 5.1, Eos % (Auto) 0.1, Baso % (Auto) 0.1, Neut # (Auto) 6.2, Lymph # (Auto) 0.3 L, [place] # (Auto) 0.4, Eos # (Auto) 0.0, Baso # (Auto) 0.0 I & O for Last 24 hours: Intake & Output 10/13/20 10/14/20 10/15/20 10/16/20 11:59 11:59 11:59 11:59 Intake Total 3059 / 3059 4082 / 4082 Output Total 50 / 50 150 / 150 575 / 575 Balance -50 / -50 2909 / 2909 3507 / 3507 Weight 241 lb 3.2 oz 248 lb 4 oz 256 lb 3 oz Microbiology Reports for the Last 24 Hours: Microbiology 10/13/20 22:45 Blood Blood Culture - Preliminary NO GROWTH AFTER 48 HOURS 10/13/20 22:45 Blood Blood Culture - Preliminary NO GROWTH AFTER 48 HOURS - Constitutional Comments: Patient sleeping - *Routine Respiratory Exam Present: decreased breath sounds, rales (few bibasilar) - *Routine Cardiovascular Exam Present: RRR - *Routine Abdominal Exam Present: soft, normoactive bowel sounds. Absent: tenderness - *Routine Extremities Exam Absent: cyanosis, clubbing, edema - *Routine Skin Exam Present: warm. Absent: rash - *Routine Neurological Exam Present: altered mental status Assessment and Plan (1) Acute delirium Status: Acute Category: Medical Code(s): R41.0 - Disorientation, unspecified (2) COVID-19 Status: Acute Category: Medical Code(s): U07.1 - COVID-19 (3) Metabolic brain disease Status: Acute Category: Medical Code(s): G93.41 - Metabolic encephalopathy (4) Altered mental state Status: Resolved Qualifiers: Altered mental status type: disorientation Qualified Code(s): R41.0 - Disorientation, unspecified Category: Medical Code(s): R41.82 - Altered mental status, unspecified (5) Diabetes mellitus Status: Chronic Qualifiers: Diabetes mellitus type: type 2 Diabetes mellitus [facility] living insulin use: unspecified senior living insulin use status Diabetes mellitus complication status: with other specified complication Qualified Code(s): E11.69 - Type 2 diabetes mellitus with other specified complication Category
[2020-10-16 10:34] LABS: Lymphocytes % 7 % (10-50); Monocytes % 1 % (2-9); Neutrophils % 91 % (42-76); Platelet Estimate Normal; RBC Morphology Normal; Total Cells Counted 100
--- NOTE | 2020-10-16 17:34 | PC.NURSE ---
Patient remains confused, alert to self only, on vapotherm 30L at 80%, has had three liquids black tarry bowel movements, convalescent plasma administered today, no reaction noted, has made numerous attempts to remove oxygen and pull out IVs, mittens in place, FC patent and draining clear yellow urine at bedside, nsr per telemetry, vss, will continue to monitor.
[2020-10-16 21:16] LABS: POC Glucose,Bedside 280 (70-110)
[2020-10-16 21:16] LABS: POC Glucose,Bedside 253 (70-110)
[2020-10-16 21:16] LABS: POC Glucose,Bedside 259 (70-110)
[2020-10-16 21:16] LABS: POC Glucose,Bedside 225 (70-110)
[2020-10-17] VITALS (12 sets, daily range): BP systolic 124–165; BP diastolic 54–75; PULSE 75–95; RESP 22–26; TEMP 37.1–37.9; O2SAT 92–99; BMI 34.9
--- NOTE | 2020-10-17 05:32 | PC.NURSE ---
shift summary has rested throughout shift.vehicle monitor technician has shown sr. patient remains confused this shift and on same setting on the vapotherm with sats 92-98%, rr increases with anxiety. treated once with tylenol for temp of 100.2 axillary. patient continues to have ineffective cough and have been unable to suction due to patient being uncooperative. castillo to gravity draining clear yellow urine.
[2020-10-17 05:33] LABS: POC Glucose,Bedside 205 (70-110)
[2020-10-17 06:20] LABS: Alanine Aminotransferase 34 U/L (12-78); Albumin Level 2.4 g/dl (3.5-5.0); Albumin/Globulin Ratio 0.8 (1.1-1.8); Alkaline Phosphatase 81 U/L (38-126); Anion Gap 13.1 mEq/L (5-15); Aspartate Amino Transferase 74 U/L (17-59); Bilirubin,Total 0.3 mg/dl (0.2-1.3); Blood Urea Nitrogen 53 mg/dl (9-20); Calcium 8.1 mg/dl (8.4-10.2); Carbon Dioxide 16 mmol/L (22.0-30.0); Chloride 113 mmol/L (98-107); Creatinine Clearance Estimated 51 mL/min (50-200); Estimated Glomerular Filt Rate 30 ml/min (>60); GFR (African American) 36 ML/MIN (>60); Globulin 2.9 g/dL (1.3-3.2); Glucose 182 mg/dl (74-100); Potassium 5.1 mmoL/L (3.5-5.1); Sodium 137 mmol/L (136-145); Total Protein,Serum 5.3 g/dl (6.3-8.2)
--- NOTE | 2020-10-17 08:41 | HMH.ACPN2 ---
<Va Culp - Last Filed: 10/17/20 08:41> Internal Medicine - PN: Subj *Date: 10/17/20 *Time: 08:41 Interval history: Patient did run a few fevers throughout the night which normalized with Tylenol. His FiO2 had to be turned up to 80 due to saturations in the 80s. Since this change, his sats have remained in the 90s. He is still very confused and agitated. He got his convalescent plasma yesterday. Nursing does state that he had 3 black tarry stools yesterday but has had none today. Exam Vital signs and Labs for Last 24 Hours: Temp Pulse Resp BP Pulse Ox 99.7 F H 80 25 H 124/55 L 98 10/17/20 08:00 10/17/20 08:00 10/17/20 08:00 10/17/20 08:00 10/17/20 08:00 Laboratory Results - last 24 hr 10/15/20 17:20: Blood Type O Negative 10/16/20 05:54: POC Glucose 259 H 10/16/20 05:55: Total Counted 100, Neutrophils % (Manual) 91 H, Band Neutrophils % 1.0, Lymphocytes % (Manual) 7 L, Monocytes % (Manual) 1 L, Platelet Estimate Normal, RBC Morphology Normal 10/16/20 11:21: POC Glucose 280 H 10/16/20 17:01: POC Glucose 225 H 10/16/20 20:55: POC Glucose 253 H 10/17/20 05:24: POC Glucose 205 H 10/17/20 05:30: Sodium 137, Potassium 5.1, Chloride 113 H, Carbon Dioxide 16 L D, Anion Gap 13.1, BUN 53 H, Creatinine 2.20 H, Estimated Creat Clear 51, Estimated GFR 30 L, Est GFR ( Amer) 36 L, Glucose 182 H D, Calcium 8.1 L, Total Bilirubin 0.3, AST 74 H, ALT 34, Alkaline Phosphatase 81, Total Protein 5.3 L, Albumin 2.4 L, Globulin 2.9, Albumin/Globulin Ratio 0.8 L I & O for Last 24 hours: Intake & Output 10/14/20 10/15/20 10/16/20 10/17/20 11:59 11:59 11:59 11:59 Intake Total 3059 / 3059 4082 / 4082 1865 / 1865 Output Total 50 / 50 150 / 150 575 / 575 1100 / 1100 Balance -50 / -50 2909 / 2909 3507 / 3507 765 / 765 Weight 241 lb 3.2 oz 248 lb 4 oz 256 lb 3 oz 249 lb 8 oz - Constitutional agitated - *Routine Respiratory Exam Present: decreased breath sounds, rhonchi - *Routine Cardiovascular Exam Present: RRR - *Routine Abdominal Exam Present: soft, normoactive bowel sounds. Absent: tenderness - *Routine Extremities Exam Absent: cyanosis, clubbing, edema - *Routine Skin Exam Present: warm. Absent: rash - *Routine Neurological Exam Present: altered mental status Assessment and Plan (1) Acute delirium Status: Acute Category: Medical Code(s): R41.0 - Disorientation, unspecified (2) COVID-19 Status: Acute Category: Medical Code(s): U07.1 - COVID-19 (3) Metabolic brain disease Status: Acute Category: Medical Code(s): G93.41 - Metabolic encephalopathy (4) Altered mental state Status: Resolved Qualifiers: Altered mental status type: disorientation Qualified Code(s): R41.0 - Disorientation, unspecified Category: Medical Code(s): R41.82 - Altered mental status, unspecified (5) Diabetes mellitus Status: Chronic Qualifiers: Diabetes mellitus type: type 2 Diabetes mellitus supervisor intermediates insulin use: unspecified supervisor intermediates insulin 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 disease) Status: Chronic Qualifiers: Coronary Disease-Associated Artery/Lesion type: [place] artery [place] vs. transplanted heart: [place] heart Associated angina: with unspecified angina Qualified Code(s): I25.119 - Atherosclerotic heart disease of [place] coronary artery with unspecified angina pectoris Category: Medical Code(s): I25.10 - Atherosclerotic heart disease of [place] coronary artery without angina pectoris (7) CRI (chronic renal insufficiency) Status: Chronic Qualifiers: Chronic kidney disease stage: stage 3 (moderate) Chronic kidney disease stage 3 subtype: unspecified whether 3a or 3b Qualified Code(s):
[2020-10-17 08:57] LABS: Basophils % 0.2 % (0.1-2.0); Eosinophils % 0.5 % (0.1-12.0); Hematocrit 33.7 % (42.0-52.0); Hemoglobin 10.7 g/dL (14.1-18.0); Lymphocytes # 0.5 K/mm3 (0.7-4.5); Lymphocytes % 8.1 % (10-50); Mean Corpuscular HGB Conc 31.9 g/dL (31.8-35.4); Mean Corpuscular Volume 97.2 fl (80-94); Mean Platelet Volume 8.8 fl (7.4-10.4); Monocytes # 0.2 K/mm3 (0.1-1.0); Monocytes % 4.3 % (1.7-9.3); Neutrophils # 4.9 K/mm3 (1.8-7.8); Neutrophils % 86.8 % (37.0-80.0); Platelet Count 245 K/mm3 (142-424); Red Blood Count 3.46 M/mm3 (4.60-6.20); Red Cell Distribution Width 15.3 % (11.5-17.5); White Blood Count 5.6 K/mm3 (4.8-10.8)
[2020-10-17 08:59] LABS: MANUAL DIFFERENTIAL MANUAL DIFFERENTIAL (MANUAL DIFF)
[2020-10-17 10:21] LABS: Lymphocytes % 10 % (10-50); Monocytes % 3 % (2-9); Neutrophils % 87 % (42-76); Platelet Estimate Normal; Total Cells Counted 100
[2020-10-17 10:22] LABS: Acanthocytes 3+; Poikilocytosis 3+
--- NOTE | 2020-10-17 14:18 | DIET.NUTRFU ---
PO intakes 0-25% rt confusion. He is receiving D5 IVF. BG avg. 260. Renal function continues to be poor. He had 3 dark tarry stools yesterday, and 2 on 10/14, no other BMs. Weight is stable. He is on a soft mechanical/ADA diet, Na restriction removed at this time rt inadequate intakes, will monitor and alter as indicated. Supplements increased to TID. Pt''s confusion/refusal to eat at times is of issue. Continued efforts encouragement/cueing at meal times and replacement meal/supplement offerings with meal refusals appreciated. Continuing to monitor and alter diet as indicated.
--- NOTE | 2020-10-17 17:09 | PC.NURSE ---
Pt bathed and had linen change by this tech and RNRanjit. this tech swept and mopped and wiped down pt room.
--- NOTE | 2020-10-17 17:22 | PC.NURSE ---
No acute changes noted this shift, alert to self only, remains on vapotherm, have been able to titrate vapotherm to 30L/50%, pt continues to try to pull off oxygen, mittens in place, has been given full bedbath and linen change, one small liquid BM this shift, has been turned q2h, lungs diminished t/o, HR reg, no edema noted, peripheral pulses 2+, dsg to buttocks changed, abd soft and nontender, hypoactive bowel sounds in all quads, FC patent and draining clear yellow urine at bedside, will continue to monitor.
[2020-10-17 18:27] LABS: POC Glucose,Bedside 202 (70-110)
[2020-10-17 18:27] LABS: POC Glucose,Bedside 239 (70-110)
--- NOTE | 2020-10-17 18:47 | PC.WOUNDNOTE ---
Wound Location: Left buttocks
[2020-10-17 20:44] LABS: Occult Blood,Stool Negative (Negative)
[2020-10-17 20:49] LABS: POC Glucose,Bedside 203 (70-110)
[2020-10-18] VITALS (11 sets, daily range): BP systolic 106–157; BP diastolic 50–82; PULSE 60–81; RESP 22–26; TEMP 36.2–37.5; O2SAT 92–97; BMI 35.7
--- NOTE | 2020-10-18 04:58 | PC.NURSE ---
Patient has rested well on and off throughout the night. Patient does not answer orientation questions when asked, but does say what when I say his name. Pupils are PERRL at 2mm. Patient has garbled speech and mumbles to himself. Breath sounds are diminished throughout with slight crackles noted to left base; has not changed throughout night. Patient does have dry cough; unable to produce specimen. Vapotherm has been weaned down to 20L/ 50% and patient is tolerating well; SpO2 remained > 93%. No peripheral edema noted and pulses 2+ bilateral pedal and post tib. Patient has had 2 bowel movements this shift; occult stool sent to lab due to having black tarry stool yesterday. Results were negative and stool is now a brown/green color. PO medications have been crushed and given to patient with sugar free pudding; patient has had a poor appetite, but did eat all the pudding. Patient must be fed and reoriented before each bite (or spits it back out). Seizure pads in place; patient does not have a history of seizures but due to brain mass they were placed just in case. Patient has been NSR on monitor and vital signs has been stable; afebrile. Patient has open area to coccyx; pictures in note, wound eval ordered, and dressing in place. Patient has been turned using pillows every 2 hours. Alcantar catheter in place draining clear yellow urine; adequate output. Will continue to monitor.
[2020-10-18 05:32] LABS: POC Glucose,Bedside 281 (70-110)
--- NOTE | 2020-10-18 06:22 | PC.NURSE ---
Patient is more alert and oriented this morning. He said his name was Celestino when asked and easily ate a entire pudding with his morning medication; he did not have to be reoriented before each bite like last night. Appetite seems to also have increased as patient appears eager for breakfast. Weight noticed to have an increase from yesterday; this was checked twice with the same result both times. MD will be notified during AM rounds. Mittens are off at this time and patient remains appropriate, not pulling at oxygen and IV tubing. FSBS 203 last night and 281 this morning- insulin given per sliding scale as ordered.
[2020-10-18 07:07] LABS: Alanine Aminotransferase 42 U/L (12-78); Albumin Level 2.1 g/dl (3.5-5.0); Albumin/Globulin Ratio 0.8 (1.1-1.8); Alkaline Phosphatase 93 U/L (38-126); Anion Gap 8.7 mEq/L (5-15); Aspartate Amino Transferase 94 U/L (17-59); Bilirubin,Total 0.2 mg/dl (0.2-1.3); Blood Urea Nitrogen 43 mg/dl (9-20); Calcium 7.7 mg/dl (8.4-10.2); Carbon Dioxide 19 mmol/L (22.0-30.0); Chloride 114 mmol/L (98-107); Creatinine Clearance Estimated 63 mL/min (50-200); Estimated Glomerular Filt Rate 38 ml/min (>60); GFR (African American) 45 ML/MIN (>60); Globulin 2.7 g/dL (1.3-3.2); Glucose 268 mg/dl (74-100); Potassium 4.7 mmoL/L (3.5-5.1); Sodium 137 mmol/L (136-145); Total Protein,Serum 4.8 g/dl (6.3-8.2)
--- NOTE | 2020-10-18 08:14 | HMH.ACPN2 ---
Internal Medicine - PN: Subj *Date: 10/18/20 *Time: 08:58 Interval history: Pt has no new complaints today. Ate some pudding this morning. Exam Vital signs and Labs for Last 24 Hours: Temp Pulse Resp BP Pulse Ox 98.2 F 77 24 119/65 92 L 10/18/20 07:34 10/18/20 07:34 10/18/20 07:34 10/18/20 07:34 10/18/20 07:34 Laboratory Results - last 24 hr 10/17/20 05:30: WBC 5.6, RBC 3.46 L, Hgb 10.7 L, Hct 33.7 L, MCV 97.2 H, MCH 31.0, MCHC 31.9, RDW 15.3, Plt Count 245, MPV 8.8, Neut % (Auto) 86.8 H, Lymph % (Auto) 8.1 L, [place] % (Auto) 4.3, Eos % (Auto) 0.5, Baso % (Auto) 0.2, Neut # (Auto) 4.9, Lymph # (Auto) 0.5 L, [place] # (Auto) 0.2, Eos # (Auto) 0.0, Baso # (Auto) 0.0, Total Counted 100, Neutrophils % (Manual) 87 H, Lymphocytes % (Manual) 10, Monocytes % (Manual) 3, Platelet Estimate Normal, Poikilocytosis 3+, Acanthocytes (Spur) 3+ 10/17/20 12:09: POC Glucose 239 H 10/17/20 16:43: POC Glucose 202 H 10/17/20 20:10: Stool Occult Blood Negative 10/17/20 20:42: POC Glucose 203 H 10/18/20 05:25: POC Glucose 281 H 10/18/20 06:00: Sodium 137, Potassium 4.7, Chloride 114 H, Carbon Dioxide 19 L, Anion Gap 8.7, BUN 43 H, Creatinine 1.80 H, Estimated Creat Clear 63, Estimated GFR 38 L, Est GFR ( Amer) 45 L D, Glucose 268 H, Calcium 7.7 L, Total Bilirubin 0.2, AST 94 H D, ALT 42, Alkaline Phosphatase 93, Total Protein 4.8 L, Albumin 2.1 L D, Globulin 2.7, Albumin/Globulin Ratio 0.8 L Vital Signs - 24 hr 10/17/20 11:11 10/17/20 12:00 10/17/20 13:25 Temperature 99.3 F Pulse Rate 80 Pulse Rate [Left] 75 Respiratory Rate 23 Blood Pressure [Right Arm] 165/71 H 02 Sat by Pulse Oximetry 97 98 98 10/17/20 16:00 10/17/20 17:17 10/17/20 19:42 Temperature 99.1 F 98.7 F Pulse Rate 80 Pulse Rate [Left] 88 93 H Respiratory Rate 26 H 24 Blood Pressure [Right Arm] 130/75 153/73 H 02 Sat by Pulse Oximetry 98 92 L 99 10/17/20 20:00 10/17/20 20:13 10/18/20 00:00 Temperature 98.5 F Pulse Rate 75 60 Pulse Rate [Left] 70 Respiratory Rate 26 H Blood Pressure [Right Arm] 106/50 L 02 Sat by Pulse Oximetry 95 96 10/18/20 00:28 10/18/20 04:00 10/18/20 07:34 Temperature 98.8 F 98.2 F Pulse Rate 70 Pulse Rate [Left] 80 77 Respiratory Rate 26 H 24 Blood Pressure [Right Arm] 151/81 H 119/65 02 Sat by Pulse Oximetry 97 94 L 92 L I & O for Last 24 hours: Intake & Output 10/15/20 10/16/20 10/17/20 10/18/20 23:59 23:59 23:59 23:59 Intake Total 3446 / 3446 3965 / 3965 750 / 750 1185 / 1185 Output Total 325 / 325 750 / 750 925 / 925 500 / 500 Balance 3121 / 3121 3215 / 3215 -175 / -175 685 / 685 Weight 249 lb 1.957 oz 256 lb 3 oz 249 lb 8 oz 255 lb 3 oz - Constitutional no acute distress - *Routine HEENT Exam Head: Present: normocephalic Eye: Present: EOMI ENT: Present: mucous membranes moist - *Routine Neck Exam Present: supple. Absent: lymphadenopathy - *Routine Respiratory Exam Present: crackles (few bibasilar) - *Routine Cardiovascular Exam Present: RRR - *Routine Abdominal Exam Present: soft, normoactive bowel sounds. Absent: tenderness - *Routine Extremities Exam Absent: cyanosis, clubbing, edema - *Routine Skin Exam Present: warm. Absent: rash - *Routine Neurological Exam Present: alert Assessment and Plan (1) Acute delirium Status: Acute Category: Medical Code(s): R41.0 - Disorientation, unspecified (2) COVID-19 Status: Acute Category: Medical Code(s): U07.1 - COVID-19 (3) Metabolic brain disease Status: Acute Category: Medical Code(s): G93.41 - Metabolic encephalopathy (4) Altered mental state Status: Resolved Qualifiers: Altered mental status type: disorientation Qualified Code(s): R41.0 - Disorientation, unspecified Category: Medical Code(s): R41.82 - Altered mental status, unspecified (5) Diabetes mellitus Status: Chronic Qualifiers: Diabetes mellitus type: type 2 Diabetes mellitus long t
[2020-10-18 10:36] LABS: POC Glucose,Bedside 261 (70-110)
[2020-10-18 16:31] LABS: POC Glucose,Bedside 179 (70-110)
--- NOTE | 2020-10-18 18:03 | PC.NURSE ---
Pt is alert to self, when asked states intermittently states his name is Celestino. Lungs cta, diminished with occasional rhonchi on L side. Vapotherm still currently on 20 L and 50%. BS x 4, soft and non tender. Did eat small amt of mashed potatoes and jello for supper. Has taken meds per oct. Has had x 1 lg BM this shift-loose and yellow. This RN did change dsg to coccyx r/t open area. Continues on pharmacological vte - lovenox. Vital signs have remained stable all shift. Pt is NSR on tele. Does still have intermittent dry cough with no expectorant. Have turned q 2 hrs this shift and castillo draining bright yellow urine. CB in reach. FS achs.
--- NOTE | 2020-10-18 18:54 | PC.NURSE ---
pt's room swept, mopped and cleaned up this shift by this tech and RNKiel.
[2020-10-18 20:40] LABS: POC Glucose,Bedside 216 (70-110)
--- NOTE | 2020-10-18 22:08 | PC.NURSE ---
patient able to get hand out of mitten and took off his O2; O2 desat to 84% very quickly; Patient 02 sat at 92%now. Patient shows no s/s of acute distress noted at this time. Mitten reapplied. Will continue to monitor.
[2020-10-19] VITALS (9 sets, daily range): BP systolic 110–135; BP diastolic 53–66; PULSE 62–80; RESP 23–26; TEMP 36.5–36.9; O2SAT 91–96; BMI 36.3
[2020-10-19 04:32] LABS: Basophils % 0.2 % (0.1-2.0); Eosinophils # 0.1 K/mm3 (0.0-0.4); Eosinophils % 2.3 % (0.1-12.0); Hematocrit 31.2 % (42.0-52.0); Hemoglobin 10.1 g/dL (14.1-18.0); Lymphocytes # 0.4 K/mm3 (0.7-4.5); Lymphocytes % 15.1 % (10-50); Mean Corpuscular HGB Conc 32.5 g/dL (31.8-35.4); Mean Corpuscular Hemoglobin 31.6 pg (27.0-31.2); Mean Platelet Volume 8.4 fl (7.4-10.4); Monocytes # 0.2 K/mm3 (0.1-1.0); Monocytes % 6.8 % (1.7-9.3); Neutrophils % 75.6 % (37.0-80.0); Platelet Count 242 K/mm3 (142-424); Red Blood Count 3.21 M/mm3 (4.60-6.20); Red Cell Distribution Width 15.7 % (11.5-17.5); White Blood Count 2.7 K/mm3 (4.8-10.8)
[2020-10-19 04:38] LABS: Chloride 115 mmol/L (98-107); Potassium 4.8 mmoL/L (3.5-5.1); Sodium 139 mmol/L (136-145)
[2020-10-19 04:41] LABS: Anion Gap 6.8 mEq/L (5-15); Blood Urea Nitrogen 37 mg/dl (9-20); Carbon Dioxide 22 mmol/L (22.0-30.0); Creatinine Clearance Estimated 76 mL/min (50-200); Estimated Glomerular Filt Rate 46 ml/min (>60); GFR (African American) 56 ML/MIN (>60)
[2020-10-19 04:42] LABS: Calcium 7.7 mg/dl (8.4-10.2); Glucose 165 mg/dl (74-100)
--- NOTE | 2020-10-19 06:35 | PC.NURSE ---
Patient A&O x1 (can state his name). VS WNL, hands & wrists assessed r/t wearing mittens; no s/s of lack of circulation noted at this time. Patient continues to pull of O2 when mittens are off. Patient shows no s/s of acute distress noted at this time. Call light within reach, bed at lowest level for safety. Will continue to monitor.
[2020-10-19 08:24] LABS: POC Glucose,Bedside 181 (70-110)
--- NOTE | 2020-10-19 10:26 | HMH.ACPN2 ---
Internal Medicine - PN: Subj *Date: 10/19/20 *Time: 10:41 Interval history: Patient with no new complaints today, nurses note he had some confusion through the day yesterday and overnight. Exam Vital signs and Labs for Last 24 Hours: Temp Pulse Resp BP Pulse Ox 97.9 F 74 25 H 116/53 L 94 L 10/19/20 08:00 10/19/20 08:00 10/19/20 08:00 10/19/20 08:00 10/19/20 08:00 Laboratory Results - last 24 hr 10/18/20 10:26: POC Glucose 261 H 10/18/20 16:20: POC Glucose 179 H 10/18/20 20:26: POC Glucose 216 H 10/19/20 04:10: POC Glucose 181 H 10/19/20 04:20: WBC 2.7 L D, RBC 3.21 L, Hgb 10.1 L, Hct 31.2 L, MCV 97.0 H, MCH 31.6 H, MCHC 32.5, RDW 15.7, Plt Count 242, MPV 8.4, Neut % (Auto) 75.6, Lymph % (Auto) 15.1, [place] % (Auto) 6.8, Eos % (Auto) 2.3, Baso % (Auto) 0.2, Neut # (Auto) 2.0, Lymph # (Auto) 0.4 L, [place] # (Auto) 0.2, Eos # (Auto) 0.1, Baso # (Auto) 0.0 10/19/20 04:20: Sodium 139, Potassium 4.8, Chloride 115 H, Carbon Dioxide 22, Anion Gap 6.8, BUN 37 H, Creatinine 1.50 H, Estimated Creat Clear 76, Estimated GFR 46 L, Est GFR ( Amer) 56 L D, Glucose 165 H D, Calcium 7.7 L Vital Signs - 24 hr 10/18/20 10:50 10/18/20 11:53 10/18/20 12:00 Temperature 97.2 F L Pulse Rate 70 Pulse Rate [Left] 72 Respiratory Rate 22 Blood Pressure [Right Arm] 149/75 H 02 Sat by Pulse Oximetry 95 94 L 10/18/20 16:00 10/18/20 19:39 10/18/20 20:00 Temperature 97.1 F L 99.5 F Pulse Rate 70 80 Pulse Rate [Left] 69 81 67 Respiratory Rate 22 26 H 26 H Blood Pressure [Right Arm] 139/53 L 157/82 H 02 Sat by Pulse Oximetry 92 L 93 L 93 L 10/19/20 00:00 10/19/20 04:00 10/19/20 07:03 Temperature 97.8 F 98.4 F Pulse Rate 70 70 Pulse Rate [Left] 66 66 Respiratory Rate 26 H 26 H Blood Pressure [Right Arm] 118/58 L 110/56 L 02 Sat by Pulse Oximetry 94 L 91 L 96 10/19/20 08:00 Temperature 97.9 F Pulse Rate 70 Pulse Rate [Left] 74 Respiratory Rate 25 H Blood Pressure [Right Arm] 116/53 L 02 Sat by Pulse Oximetry 94 L I & O for Last 24 hours: Intake & Output 10/16/20 10/17/20 10/18/20 10/20/20 23:59 23:59 23:59 00:59 Intake Total 3965 / 3965 750 / 750 1713 / 1713 50 / 50 Output Total 750 / 750 925 / 925 1300 / 1300 400 / 400 Balance 3215 / 3215 -175 / -175 413 / 413 -350 / -350 Weight 256 lb 3 oz 249 lb 8 oz 255 lb 3 oz 259 lb 6.4 oz Microbiology Reports for the Last 24 Hours: Microbiology 10/13/20 22:45 Blood Blood Culture - Final NO GROWTH AFTER 5 DAYS 10/13/20 22:45 Blood Blood Culture - Final NO GROWTH AFTER 5 DAYS - Constitutional no acute distress - *Routine Respiratory Exam Present: crackles (rare). Absent: wheezes - *Routine Cardiovascular Exam Present: RRR - *Routine Abdominal Exam Present: soft, normoactive bowel sounds. Absent: tenderness - *Routine Extremities Exam Absent: cyanosis, clubbing, edema Assessment and Plan (1) Acute delirium Status: Acute Category: Medical Code(s): R41.0 - Disorientation, unspecified (2) COVID-19 Status: Acute Category: Medical Code(s): U07.1 - COVID-19 (3) Metabolic brain disease Status: Acute Category: Medical Code(s): G93.41 - Metabolic encephalopathy (4) Altered mental state Status: Resolved Qualifiers: Altered mental status type: disorientation Qualified Code(s): R41.0 - Disorientation, unspecified Category: Medical Code(s): R41.82 - Altered mental status, unspecified (5) Diabetes mellitus Status: Chronic Qualifiers: Diabetes mellitus type: type 2 Diabetes mellitus fpc insulin use: unspecified tank 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
[2020-10-19 11:05] LABS: POC Glucose,Bedside 216 (70-110)
[2020-10-19 15:45] LABS: POC Glucose,Bedside 166 (70-110)
--- NOTE | 2020-10-19 16:47 | PC.NURSE ---
Pt alert to self with confusion. Continues on vapotherm at 20 L and 50%. Have turned and repositioned q 2 hrs this shift and changed dsg to coccyx.Pts appetite and nutrition is poor. Did make Dr. Duff aware pt is only taking in small amts of po food and liquid and that pt does have intermittent episodes of restlessness. Crackles heard in L Lung, has had x 1 bm this shift -loose and yellow and has been NSR on tele. VSS. Have spoke to pts x 2 this shift with updates.
[2020-10-19 19:57] LABS: POC Glucose,Bedside 207 (70-110)
[2020-10-20] VITALS (14 sets, daily range): BP systolic 119–142; BP diastolic 53–75; PULSE 70–84; RESP 20–26; TEMP 36.4–36.6; O2SAT 91–94; BMI 36.4
[2020-10-20 04:35] LABS: POC Glucose,Bedside 188 (70-110)
--- NOTE | 2020-10-20 05:12 | PC.NURSE ---
patient showing steady increase in weight gain over last several days with an increase this shift.
[2020-10-20 06:08] LABS: Basophils % 0.4 % (0.1-2.0); Eosinophils % 1.6 % (0.1-12.0); Hematocrit 34.2 % (42.0-52.0); Hemoglobin 10.9 g/dL (14.1-18.0); Lymphocytes # 0.5 K/mm3 (0.7-4.5); Lymphocytes % 20.9 % (10-50); Mean Corpuscular HGB Conc 31.8 g/dL (31.8-35.4); Mean Corpuscular Hemoglobin 30.9 pg (27.0-31.2); Mean Corpuscular Volume 96.9 fl (80-94); Mean Platelet Volume 8.2 fl (7.4-10.4); Monocytes # 0.2 K/mm3 (0.1-1.0); Monocytes % 10.1 % (1.7-9.3); Neutrophils # 1.5 K/mm3 (1.8-7.8); Neutrophils % 67.1 % (37.0-80.0); Platelet Count 289 K/mm3 (142-424); Red Blood Count 3.53 M/mm3 (4.60-6.20); Red Cell Distribution Width 15.9 % (11.5-17.5); White Blood Count 2.2 K/mm3 (4.8-10.8)
[2020-10-20 06:20] LABS: Alanine Aminotransferase 74 U/L (12-78); Albumin Level 2.3 g/dl (3.5-5.0); Albumin/Globulin Ratio 0.8 (1.1-1.8); Alkaline Phosphatase 112 U/L (38-126); Anion Gap 10.4 mEq/L (5-15); Aspartate Amino Transferase 137 U/L (17-59); Bilirubin,Total 0.3 mg/dl (0.2-1.3); Blood Urea Nitrogen 28 mg/dl (9-20); Calcium 7.9 mg/dl (8.4-10.2); Carbon Dioxide 21 mmol/L (22.0-30.0); Chloride 116 mmol/L (98-107); Creatinine Clearance Estimated 83 mL/min (50-200); Estimated Glomerular Filt Rate 50 ml/min (>60); GFR (African American) 61 ML/MIN (>60); Globulin 2.9 g/dL (1.3-3.2); Glucose 167 mg/dl (74-100); Potassium 4.4 mmoL/L (3.5-5.1); Sodium 143 mmol/L (136-145); Total Protein,Serum 5.2 g/dl (6.3-8.2)
--- NOTE | 2020-10-20 08:34 | HMH.ACPN2 ---
Internal Medicine - PN: Subj *Date: 10/20/20 *Time: 08:34 Interval history: Nurses report patient was less agitated overnight. No events noted. Exam Vital signs and Labs for Last 24 Hours: Temp Pulse Resp BP Pulse Ox 97.6 F 74 22 119/75 93 L 10/20/20 07:40 10/20/20 07:40 10/20/20 07:40 10/20/20 07:40 10/20/20 07:40 Laboratory Results - last 24 hr 10/19/20 10:55: POC Glucose 216 H 10/19/20 15:35: POC Glucose 166 H 10/19/20 19:41: POC Glucose 207 H 10/20/20 04:19: POC Glucose 188 H 10/20/20 05:30: WBC 2.2 L, RBC 3.53 L, Hgb 10.9 L, Hct 34.2 L, MCV 96.9 H, MCH 30.9, MCHC 31.8, RDW 15.9, Plt Count 289, MPV 8.2, Neut % (Auto) 67.1, Lymph % (Auto) 20.9, [place] % (Auto) 10.1 H, Eos % (Auto) 1.6, Baso % (Auto) 0.4, Neut # (Auto) 1.5 L, Lymph # (Auto) 0.5 L, [place] # (Auto) 0.2, Eos # (Auto) 0.0, Baso # (Auto) 0.0 10/20/20 05:30: Sodium 143, Potassium 4.4, Chloride 116 H, Carbon Dioxide 21 L, Anion Gap 10.4, BUN 28 H, Creatinine 1.40 H, Estimated Creat Clear 83, Estimated GFR 50 L, Est GFR ( Amer) 61, Glucose 167 H, Calcium 7.9 L, Total Bilirubin 0.3, AST 137 H D, ALT 74 D, Alkaline Phosphatase 112, Total Protein 5.2 L, Albumin 2.3 L, Globulin 2.9, Albumin/Globulin Ratio 0.8 L Vital Signs - 24 hr 10/19/20 12:00 10/19/20 14:14 10/19/20 16:00 Temperature 98.0 F 98.1 F Pulse Rate 70 70 Pulse Rate [Left] 76 62 Respiratory Rate 25 H 23 Blood Pressure [Right Arm] 130/66 118/65 02 Sat by Pulse Oximetry 94 L 92 L 93 L 10/19/20 19:58 10/19/20 20:00 10/20/20 00:00 Temperature 97.7 F 97.9 F Pulse Rate 80 80 Pulse Rate [Left] 80 80 74 Respiratory Rate 26 H 26 H 26 H Blood Pressure [Right Arm] 135/64 132/63 02 Sat by Pulse Oximetry 94 L 94 L 94 L 10/20/20 04:00 10/20/20 06:45 10/20/20 07:40 Temperature 97.8 F 97.6 F Pulse Rate 70 Pulse Rate [Left] 77 74 Respiratory Rate 26 H 22 Blood Pressure [Right Arm] 132/63 119/75 02 Sat by Pulse Oximetry 93 L 93 L 93 L I & O for Last 24 hours: Intake & Output 10/17/20 10/18/20 10/19/20 10/20/20 22:59 22:59 23:59 23:59 Intake Total 0 / 0 Output Total 450 / 450 Balance -450 / -450 Weight 260 lb 3 oz - Constitutional no acute distress - *Routine HEENT Exam Head: Present: normocephalic ENT: Present: mucous membranes moist - *Routine Neck Exam Present: supple. Absent: lymphadenopathy - *Routine Respiratory Exam Present: crackles (bibasilar). Absent: wheezes - *Routine Cardiovascular Exam Present: RRR - *Routine Abdominal Exam Present: soft, normoactive bowel sounds. Absent: tenderness - *Routine Extremities Exam Absent: cyanosis, clubbing, edema - *Routine Skin Exam Present: warm. Absent: rash Assessment and Plan (1) Acute delirium Status: Acute Category: Medical Code(s): R41.0 - Disorientation, unspecified (2) COVID-19 Status: Acute Category: Medical Code(s): U07.1 - COVID-19 (3) Metabolic brain disease Status: Acute Category: Medical Code(s): G93.41 - Metabolic encephalopathy (4) Altered mental state Status: Resolved Qualifiers: Altered mental status type: disorientation Qualified Code(s): R41.0 - Disorientation, unspecified Category: Medical Code(s): R41.82 - Altered mental status, unspecified (5) Diabetes mellitus Status: Chronic Qualifiers: Diabetes mellitus type: type 2 Diabetes mellitus 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 transplanted heart: [place] heart Associated angina: with unspecified angina Qualified Code(s): I25.11
--- NOTE | 2020-10-20 08:38 | XR_ITS ---
PROCEDURE: XR CHEST PORTABLE CLINICAL HISTORY: Covid 19, hypoxia COMPARISON: CR XR CHEST PORTABLE from 03/12/2020 CR XR CHEST PORTABLE from 10/13/2020 CR XR CHEST PORTABLE from 10/15/2020 FINDINGS: There is poor inspiration. Patient is tilted toward the left. Increased density is present in both lower lobes consistent with bibasilar atelectasis and/or infiltrate and has progressed since the previous exam. Lung apices are clear. No acute bony abnormalities. IMPRESSION: Worsening bilateral lower lobe atelectasis or infiltrate Dictated by: Dc Brown MD 10/20/2020 13:20 Dc Brown MD in [facility] 10/20/2020 13:20
--- NOTE | 2020-10-20 08:48 | HMH.ACPN2 ---
<Vivian Sen - Last Filed: 10/20/20 08:48> Internal Medicine - PN: Subj *Date: 10/20/20 *Time: 08:48 Interval history: per nursing: restless but has not required ativan; wearing mits to prevent pulling anything out; has been stable; not eating or drinking much. Laboratory data this morning shows a white blood cell count of 2200 with a hemoglobin of 10.9 hematocrit of 34.2. Blood chemistries show sodium of 143 potassium of 4.4; renal function continues to improve with a BUN of 28 and creatinine of 1.4. AST elevated at 137 with a normal ALT of 74. Patient is to have chest x-ray. Patient remains on Vapotherm with flow rate of 20 and FiO2 of 50%. O2 sats have been stable at 93%. He has been afebrile. He has a Alcantar catheter to bedside drainage. When awakened patient does answer questions. He denies pain and shortness of breath. He does not want anything to eat or drink. He does focus when talking. Exam Vital signs and Labs for Last 24 Hours: Temp Pulse Resp BP Pulse Ox 97.6 F 74 22 119/75 93 L 10/20/20 07:40 10/20/20 07:40 10/20/20 07:40 10/20/20 07:40 10/20/20 07:40 Laboratory Results - last 24 hr 10/19/20 10:55: POC Glucose 216 H 10/19/20 15:35: POC Glucose 166 H 10/19/20 19:41: POC Glucose 207 H 10/20/20 04:19: POC Glucose 188 H 10/20/20 05:30: WBC 2.2 L, RBC 3.53 L, Hgb 10.9 L, Hct 34.2 L, MCV 96.9 H, MCH 30.9, MCHC 31.8, RDW 15.9, Plt Count 289, MPV 8.2, Neut % (Auto) 67.1, Lymph % (Auto) 20.9, [place] % (Auto) 10.1 H, Eos % (Auto) 1.6, Baso % (Auto) 0.4, Neut # (Auto) 1.5 L, Lymph # (Auto) 0.5 L, [place] # (Auto) 0.2, Eos # (Auto) 0.0, Baso # (Auto) 0.0 10/20/20 05:30: Sodium 143, Potassium 4.4, Chloride 116 H, Carbon Dioxide 21 L, Anion Gap 10.4, BUN 28 H, Creatinine 1.40 H, Estimated Creat Clear 83, Estimated GFR 50 L, Est GFR ( Amer) 61, Glucose 167 H, Calcium 7.9 L, Total Bilirubin 0.3, AST 137 H D, ALT 74 D, Alkaline Phosphatase 112, Total Protein 5.2 L, Albumin 2.3 L, Globulin 2.9, Albumin/Globulin Ratio 0.8 L I & O for Last 24 hours: Intake & Output 10/17/20 10/18/20 10/19/20 10/20/20 10:59 10:59 11:59 11:59 Intake Total 705 / 705 Output Total 450 / 450 Balance 255 / 255 Weight 260 lb 3 oz - Constitutional no acute distress Comments: Restless. Difficult to tell if he is sleeping. Did respond and answer questions after sitting him up in the bed to listen to his lungs. - *Routine Respiratory Exam Comments: Bilateral rhonchi. He does have a congested cough. - *Routine Cardiovascular Exam Present: RRR (Monitor showing sinus rhythm.) - *Routine Abdominal Exam Present: soft, normoactive bowel sounds. Absent: tenderness - *Routine Extremities Exam Present: edema (Trace) - *Routine Neurological Exam Present: alert Assessment and Plan (1) Acute delirium Status: Acute Category: Medical Code(s): R41.0 - Disorientation, unspecified (2) COVID-19 Status: Acute Category: Medical Code(s): U07.1 - COVID-19 (3) Metabolic brain disease Status: Acute Category: Medical Code(s): G93.41 - Metabolic encephalopathy (4) Altered mental state Status: Resolved Qualifiers: Altered mental status type: disorientation Qualified Code(s): R41.0 - Disorientation, unspecified Category: Medical Code(s): R41.82 - Altered mental status, unspecified (5) Diabetes mellitus Status: Chronic Qualifiers: Diabetes mellitus type: type 2 Diabetes mellitus 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 transplanted heart: [place]
[2020-10-20 11:41] LABS: POC Glucose,Bedside 197 (70-110)
--- NOTE | 2020-10-20 11:42 | HMH.PTWOUND ---
Rehab Inpt Wound Evaluation Rehab IP Wound Evaluation Start: 10/17/20 19:30 Freq: ONCE Status: Active Protocol: Document 10/20/20 11:28 PWEUNICE (Rec: 10/20/20 11:42 [email or web address] [id number]) Rehab PT Wound Assessment Patient Status Premedicated Prior to Dressing Change No Subjective Subjective Pt is sedated but restless, flailing arms at therapists and resisting movement for wound inspection. Pt unable to respond to direct questions . Pt resists rolling, max x 2 , pt resisted sliding up in bed, pt resisted cervical flexion for pillow adjustment Wound Left Sacrum Wound Type Pressure Ulcer Is This a Chronic Wound Yes Wound Staging Unstageable Query Text:Stage I - Unbroken, red skin, no blanching. Stage II - Skin broken, superficial skin loss involving epidermis alone or also dermis. Partial loss of skin layers. Stage III - Pressure area involves epidermis, dermis and subcutaneous tissue, full thickness skin loss. Stage IV - Pressure area involves epidermis, subcutaneous tissue, bone and other supportive tissue. Full thickness skin loss with extensive destruction of underlying tissue and structures. Wound Length (cm) 2.0 Wound Width (cm) 2.0 Wound Bed Appearance Yellow,[place],Eschar,Necrotic Percentage of Slough (%) 100 Percentage of Eschar (Black) (%) 75 Percentage of Eschar (Yellow) (%) 25 Surrounding Tissue Appearance Bright Red Wound Drainage Description Purulent Drainage Amount Small Dressing Status Dry & Intact Primary Dressing Absorbant Pad Comment optifoam sacral pad Wound Debridement Amount of Tissue None Removed Dressing Change Date 10/20/20 Dressing Change Patient Tolerance Tolerated Poorly Plan/Recommendation Comment Due to pt's incontinence of bowel, poor perfusion, low protien intake and inability to self pressure relieve sharp debridement not recommended at this time - NSG to maintain occlusive dressing to help prevent fecal matter from soiling wound - optifoam
--- NOTE | 2020-10-20 14:01 | HMH.PHACONS ---
- Pharmacy Consult Date: 10/20/20 Time: 14:01 Referring provider: DR. FRANCE Reason for Consult:: VANCOMYCIN DOSING Allergies and ADEs:: Allergies Allergy/AdvReac Type Severity Reaction Status Date / Time No Known Allergies Allergy Verified 10/14/20 03:05 Home Medications:: Home Medications Medication Instructions Recorded Confirmed Type amlodipine 5 mg tablet 5 mg PO DAILY tab 04/05/19 10/14/20 History furosemide 40 mg tablet 40 mg PO DAILY tab 04/05/19 10/14/20 History glipizide 10 mg tablet 20 mg PO DAILY tab 04/05/19 10/14/20 History levothyroxine 200 mcg tablet 200 mcg PO DAILY tab 04/05/19 10/14/20 History metformin 1,000 mg tablet 1,000 mg PO BID tab 04/05/19 10/14/20 History Fluoxetine HCl 20 mg PO DAILY 03/12/20 10/14/20 History Meloxicam 15 mg PO DAILY 03/12/20 10/14/20 History Trazodone HCl 200 mg PO HS 03/12/20 10/14/20 History Meclizine HCl [Meclizine 25mg Tab] 25 mg PO TID 03/13/20 10/14/20 History aspirin 81 mg tablet,delayed 81 mg PO DAILY 03/21/20 10/14/20 History release ferrous sulfate 325 mg (65 mg 325 mg PO DAILY 03/21/20 10/14/20 History iron) tablet lisinopril 20 mg tablet 20 mg PO DAILY tab 07/18/20 10/14/20 History pantoprazole 40 mg tablet,delayed 40 mg PO DAILY tab 07/18/20 10/14/20 History release Atorvastatin Calcium [Lipitor 40mg 40 mg PO DAILY 10/13/20 10/14/20 History Tab] Clopidogrel Bisulfate [Plavix] 75 mg PO DAILY 10/13/20 10/14/20 History carvediloL [Carvedilol 6.25mg Tab] 6.25 mg PO BID 10/13/20 10/14/20 History Dipyridamole 75 mg PO BID 10/14/20 10/14/20 History Probenecid/Colchicine 1 tab PO DAILY 10/14/20 10/14/20 History [Probenecid-Colchicine Tabs] ondansetron HCL [Ondansetron 8mg 8 mg PO TIDP PRN 10/14/20 10/14/20 History tab*] Height: 1.8 m Weight: 118.019 kg Laboratory Results:: Laboratory Results - last 24 hr 10/19/20 15:35: POC Glucose 166 H 10/19/20 19:41: POC Glucose 207 H 10/20/20 04:19: POC Glucose 188 H 10/20/20 05:30: WBC 2.2 L, RBC 3.53 L, Hgb 10.9 L, Hct 34.2 L, MCV 96.9 H, MCH 30.9, MCHC 31.8, RDW 15.9, Plt Count 289, MPV 8.2, Neut % (Auto) 67.1, Lymph % (Auto) 20.9, [place] % (Auto) 10.1 H, Eos % (Auto) 1.6, Baso % (Auto) 0.4, Neut # (Auto) 1.5 L, Lymph # (Auto) 0.5 L, [place] # (Auto) 0.2, Eos # (Auto) 0.0, Baso # (Auto) 0.0 10/20/20 05:30: Sodium 143, Potassium 4.4, Chloride 116 H, Carbon Dioxide 21 L, Anion Gap 10.4, BUN 28 H, Creatinine 1.40 H, Estimated Creat Clear 83, Estimated GFR 50 L, Est GFR ( Amer) 61, Glucose 167 H, Calcium 7.9 L, Total Bilirubin 0.3, AST 137 H D, ALT 74 D, Alkaline Phosphatase 112, Total Protein 5.2 L, Albumin 2.3 L, Globulin 2.9, Albumin/Globulin Ratio 0.8 L 10/20/20 11:31: POC Glucose 197 H Medical History: Reports:: Atherosclerotic Heart Disease, Cancer (Brain Cancer.), Coronary Artery Disease, Depression, Diabetes Mellitus Type 2, Gastroesophageal Reflux Disease(GERD), Hyperlipidemia, Hypertension, Kidney Stones, Myocardial Infarction, Renal Disease, Transient Ischemic Attacks (TIA) Denies:: Diabetes Mellitus Type 1 Assessment and Plan (1) Acute delirium Status: Acute Category: Medical Code(s): R41.0 - Disorientation, unspecified (2) COVID-19 Status: Acute Category: Medical Code(s): U07.1 - COVID-19 (3) Metabolic brain disease Status: Acute Category: Medical Code(s): G93.41 - Metabolic encephalopathy (4) Altered mental state Status: Resolved Qualifiers: Altered mental status type: disorientation Qualified Code(s): R41.0 - Disorientation, unspecified Category: Medical Code(s): R41.82 - Altered mental status, unspecified (5) Diabetes mellitus Status: Chronic Qualifiers: Diabetes mellitus type: type 2 Diabetes mellitus senior living insulin 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
--- NOTE | 2020-10-20 14:51 | DIET.NUTRFU ---
Addendum entered by Christine Skelton 10/22/20 12:29: No changes, continues with minimal intakes and refusing at times. When pt does eat, he either requires frequent reorientation or does not stay alert enough to swallow. Minimal fluid intake as well, Continues on D5 IVF. Last BM 10/19, weight stable. Pt has had minimal intakes >1 week putting him at risk for severe malnutrition, recommend continuing D5 and encouragement supplement intake as much as tolerated. If minimal PO toleration continues ongoing, nutritional support may be indicated. Continuing to monitor. Original Note: Pt has refused most oral intake, has not eaten above 25% of any meal t/o stay, minimal acceptance supplements. Not taking in adequate fluids either, is receiving D5 IVF. He pockets and spits out bites and sips, requires reorientation t/o feeding. Weight up 6# past 48h. He was having dark tarry stools/diarrhea, bowel function has normalized. Continued excellent efforts nursing encouragement/cueing at meal times appreciated. He continues on mechanical soft/regular diet with TID supplements. Continuing to monitor and alter diet as indicated.
--- NOTE | 2020-10-20 16:26 | PC.NURSE ---
Pt has been alert to name only at times this shift. Coarse crackles heard bilat t/o all lung ann. Pt has required oral suctioning during meals this shift due to pocketing food. Pt has had poor PO intake during meals and gets aggressive when attempting to feed him. Pt has tolerated crushed meds in pudding this shift but has to be reminded to swallow with each bite. Dressing on buttocks was changed this shift and has remained CDI. Wound culture was collected this shift on ulcer. Mitts remain on pt for safety d/t pt pulling on IV tubing, NC, and heart monitor leads. O2 sats have remained > 90% this shift. Pt is still on 20 L and 50% FiO2. Pt has been very resistive to q2h turns and oral care. Alcantar cath remains intact and is draining clear, dark yellow urine per gravity. No other acute changes or complaints at this time.
[2020-10-20 17:16] LABS: POC Glucose,Bedside 216 (70-110)
[2020-10-20 21:41] LABS: POC Glucose,Bedside 157 (70-110)
[2020-10-21] VITALS (14 sets, daily range): BP systolic 106–123; BP diastolic 43–61; PULSE 45–71; RESP 20–26; TEMP 36.4–37.2; O2SAT 90–100; BMI 35.9
--- NOTE | 2020-10-21 04:50 | PC.NURSE ---
shift summary pts lung sounds are diminished with some coarse crackles sats maintained 88-92% on 20L with 50% fio2 on the vapotherm with a rate ranging from 26-30. pt is alert but only oriented to person. randomly during the night when the pt was asleep his pulse rate would drop down around 45 but then recover back into the upper 70's in less than a minute. pt has a castillo in place with clear yellow in color urine.
[2020-10-21 05:55] LABS: POC Glucose,Bedside 209 (70-110)
[2020-10-21 06:25] LABS: Basophils % 0.2 % (0.1-2.0); Eosinophils % 0.3 % (0.1-12.0); Hematocrit 31.5 % (42.0-52.0); Lymphocytes # 0.5 K/mm3 (0.7-4.5); Lymphocytes % 18.9 % (10-50); Mean Corpuscular HGB Conc 31.8 g/dL (31.8-35.4); Mean Corpuscular Hemoglobin 30.9 pg (27.0-31.2); Mean Corpuscular Volume 97.1 fl (80-94); Mean Platelet Volume 7.8 fl (7.4-10.4); Monocytes # 0.3 K/mm3 (0.1-1.0); Monocytes % 10.1 % (1.7-9.3); Neutrophils # 1.8 K/mm3 (1.8-7.8); Neutrophils % 70.5 % (37.0-80.0); Platelet Count 297 K/mm3 (142-424); Red Blood Count 3.24 M/mm3 (4.60-6.20); White Blood Count 2.6 K/mm3 (4.8-10.8)
[2020-10-21 06:27] LABS: Alanine Aminotransferase 62 U/L (12-78); Albumin/Globulin Ratio 0.7 (1.1-1.8); Alkaline Phosphatase 94 U/L (38-126); Anion Gap 9.3 mEq/L (5-15); Aspartate Amino Transferase 102 U/L (17-59); Bilirubin,Total 0.3 mg/dl (0.2-1.3); Blood Urea Nitrogen 25 mg/dl (9-20); Calcium 7.7 mg/dl (8.4-10.2); Carbon Dioxide 20 mmol/L (22.0-30.0); Chloride 118 mmol/L (98-107); Creatinine Clearance Estimated 88 mL/min (50-200); Estimated Glomerular Filt Rate 55 ml/min (>60); GFR (African American) 66 ML/MIN (>60); Globulin 2.9 g/dL (1.3-3.2); Glucose 202 mg/dl (74-100); Potassium 4.3 mmoL/L (3.5-5.1); Sodium 143 mmol/L (136-145); Total Protein,Serum 4.9 g/dl (6.3-8.2)
--- NOTE | 2020-10-21 08:39 | HMH.ACPN2 ---
Internal Medicine - PN: Subj *Date: 10/21/20 *Time: 08:49 Interval history: Patient had some episodes of bradycardia overnight, HR got down into the 30's a few times, it would spontaneously come back up to 70's. Nurses report patient is less responsive today. Vancomycin started yesterday due to sacral wound, culture taken. Exam Vital signs and Labs for Last 24 Hours: Temp Pulse Resp BP Pulse Ox 98.0 F 58 L 26 H 109/59 L 95 10/21/20 07:37 10/21/20 07:37 10/21/20 07:37 10/21/20 07:37 10/21/20 07:37 Laboratory Results - last 24 hr 10/20/20 11:31: POC Glucose 197 H 10/20/20 16:43: POC Glucose 216 H 10/20/20 21:32: POC Glucose 157 H 10/21/20 05:20: WBC 2.6 L, RBC 3.24 L, Hgb 10.0 L, Hct 31.5 L, MCV 97.1 H, MCH 30.9, MCHC 31.8, RDW 16.0, Plt Count 297, MPV 7.8, Neut % (Auto) 70.5, Lymph % (Auto) 18.9, [place] % (Auto) 10.1 H, Eos % (Auto) 0.3, Baso % (Auto) 0.2, Neut # (Auto) 1.8, Lymph # (Auto) 0.5 L, [place] # (Auto) 0.3, Eos # (Auto) 0.0, Baso # (Auto) 0.0 10/21/20 05:20: Sodium 143, Potassium 4.3, Chloride 118 H, Carbon Dioxide 20 L, Anion Gap 9.3, BUN 25 H, Creatinine 1.30 H, Estimated Creat Clear 88, Estimated GFR 55 L, Est GFR ( Amer) 66, Glucose 202 H D, Calcium 7.7 L, Total Bilirubin 0.3, AST 102 H D, ALT 62, Alkaline Phosphatase 94, Total Protein 4.9 L, Albumin 2.0 L D, Globulin 2.9, Albumin/Globulin Ratio 0.7 L 10/21/20 05:43: POC Glucose 209 H Vital Signs - 24 hr 10/20/20 10:36 10/20/20 11:30 10/20/20 12:00 Temperature 97.6 F Pulse Rate 73 Pulse Rate [Left] 74 Respiratory Rate 22 Blood Pressure [Right Arm] 142/75 H 02 Sat by Pulse Oximetry 92 L 91 L 10/20/20 14:22 10/20/20 15:53 10/20/20 16:00 Temperature 97.7 F Pulse Rate 78 Pulse Rate [Left] 75 Respiratory Rate 20 Blood Pressure [Right Arm] 139/72 02 Sat by Pulse Oximetry 93 L 91 L 10/20/20 19:57 10/20/20 20:00 10/20/20 23:14 Temperature 97.9 F Pulse Rate 70 Pulse Rate [Left] 84 Respiratory Rate 26 H Blood Pressure [Right Arm] 132/53 L 02 Sat by Pulse Oximetry 92 L 94 L 93 L 10/21/20 00:00 10/21/20 01:25 10/21/20 02:22 Temperature 97.9 F Pulse Rate 60 Pulse Rate [Left] 71 Respiratory Rate 26 H Blood Pressure [Right Arm] 123/48 L 02 Sat by Pulse Oximetry 94 L 92 L 10/21/20 04:00 10/21/20 06:20 10/21/20 07:37 Temperature 97.9 F 98.0 F Pulse Rate 60 Pulse Rate [Left] 56 L 58 L Respiratory Rate 26 H 26 H Blood Pressure [Right Arm] 118/43 L 109/59 L 02 Sat by Pulse Oximetry 93 L 90 L 95 I & O for Last 24 hours: Intake & Output 10/18/20 10/19/20 10/20/20 10/21/20 22:59 23:59 23:59 23:59 Intake Total 120 / 120 0 / 0 Output Total 1000 / 1000 500 / 500 Balance -880 / -880 -500 / -500 Weight 260 lb 3 oz 256 lb 6 oz Microbiology Reports for the Last 24 Hours: Microbiology 10/20/20 13:50 Buttock - Left Gram Stain - Final - Constitutional somnolent - *Routine HEENT Exam Head: Present: normocephalic ENT: Present: mucous membranes moist - *Routine Neck Exam Present: supple. Absent: lymphadenopathy - *Routine Respiratory Exam Present: crackles (few bibasilar). Absent: wheezes - *Routine Cardiovascular Exam Present: RRR - *Routine Abdominal Exam Present: soft, normoactive bowel sounds. Absent: tenderness - *Routine Extremities Exam Absent: cyanosis, clubbing, edema - *Routine Skin Exam Present: warm. Absent: rash Assessment and Plan (1) Acute delirium Status: Acute Category: Medical Code(s): R41.0 - Disorientation, unspecified (2) COVID-19 Status: Acute Category: Medical Code(s): U07.1 - COVID-19 (3) Metabolic brain disease Status: Acute Category: Medical Code(s): G93.41 - Metabolic encephalopathy (4) Altered mental state Status: Resolved Qualifiers: Altered mental status type: disorientation Qualified Code(s): R41.0 - Disorientation, unspecified Category: Medical Code(s): R41.82
[2020-10-21 11:16] LABS: POC Glucose,Bedside 180 (70-110)
--- NOTE | 2020-10-21 14:39 | PC.NURSE ---
Pt has had heart rate in the 30's,40's and 50's to 70's. Pt is still confused and has said very little words this shift. This nurse did call and speak with Dr. Lam at approx 1430 in RE to HR being more consistently bradycardic, he stated to continue to hold coreg, although pt is not taking po meds/intake at this time. HR has been sinus connor. BP stable. Slightly restless. Vapotherm on 20 L and 50%. NNO given per Dr. Lam. CB in reach. Will cont to mx.
--- NOTE | 2020-10-21 15:18 | PC.NURSE ---
Have spoke with recently approx 1500 and explained pts status change with continuing of Bradycardia and spoke with produce department supervisor Ara GoodwinRN in RE to coming to visit pt in proper PPE r/t status changed and she approved. Mx continues.
--- NOTE | 2020-10-21 16:02 | PC.NURSE ---
this tech and JOEL Dyson, bathed and repositioned this pt at this time. this tech swept, mopped, and wiped down pt room.
--- NOTE | 2020-10-21 17:06 | PC.NURSE ---
Pts at bedside at this time, pt did desat to 80% prior to her arrival approx 30 minutes ago. Called RT and vapotherm increased to 40 L and 100 % and satting 98% currently.
--- NOTE | 2020-10-21 17:54 | PC.NURSE ---
Pt is alert to self and awake with daughter at bedside. Pt was able to state thats my wif when she was in room. Pt also stated his name was Celestino.
--- NOTE | 2020-10-21 18:04 | PC.NURSE ---
Held po meds this shift r/t pt not being awake enough to swallow.
[2020-10-22] VITALS (12 sets, daily range): BP systolic 107–141; BP diastolic 49–69; PULSE 60–96; RESP 20–36; TEMP 36.7–37.2; O2SAT 90–100; BMI 36.5
--- NOTE | 2020-10-22 07:04 | PC.NURSE ---
Patient has rested well throughout the night. Breath sounds are diminished; patient has on vapotherm at 40L/ 100%. Patient has been NSR- sinus connor on telemetry; HR dropped to mid 40s for a couple minutes and came back up 4 times. During this time, patient has labored breathing and it stops when HR increases back to baseline. Alcantar catheter draining cloudy yellow urine and has had minimal output. Patient was given bed bath and had linens changed. Patient has had a very poor appetite and does not stay alert to safely eat or drink. Patient will open eyes for a short time when name is stated. Bilateral ankles have trace pitting edema. Heel protectors placed on patient.
--- NOTE | 2020-10-22 08:22 | HMH.ACPN2 ---
<Va Culp - Last Filed: 10/22/20 08:22> Internal Medicine - PN: Subj *Date: 10/22/20 *Time: 08:22 Interval history: Patient is awake, alert, and talking this morning. Nursing states he had a low blood pressure and more labored breathing throughout the night but this seems to be better this morning. He has had decreased urine output. He is trying to eat his breakfast this morning and denies any pain. He does have a very productive cough. Exam Vital signs and Labs for Last 24 Hours: Temp Pulse Resp BP Pulse Ox 98.8 F 61 24 123/67 100 10/22/20 04:00 10/22/20 04:00 10/22/20 04:00 10/22/20 04:00 10/22/20 06:50 Laboratory Results - last 24 hr 10/21/20 11:06: POC Glucose 180 H I & O for Last 24 hours: Intake & Output 10/19/20 10/20/20 10/21/20 10/22/20 11:59 11:59 11:59 11:59 Intake Total 705 / 705 120 / 120 780 / 780 Output Total 450 / 450 1050 / 1050 525 / 525 Balance 255 / 255 -930 / -930 255 / 255 Weight 260 lb 3 oz 256 lb 6 oz 575 lb 13.558 oz Microbiology Reports for the Last 24 Hours: Microbiology 10/20/20 13:50 Buttock - Left Gram Stain - Final 10/20/20 13:50 Buttock - Left Wound Culture - Preliminary Gram Negative Rods Gram Negative Rods#2 - Constitutional no acute distress - *Routine Respiratory Exam Present: rales (Few bibasilar). Absent: wheezes - *Routine Cardiovascular Exam Present: RRR - *Routine Abdominal Exam Present: soft, normoactive bowel sounds. Absent: tenderness - *Routine Extremities Exam Absent: cyanosis, clubbing, edema - *Routine Skin Exam Present: warm. Absent: rash - *Routine Neurological Exam Present: alert Awake and talking, can answer questions Assessment and Plan (1) Acute delirium Status: Acute Category: Medical Code(s): R41.0 - Disorientation, unspecified (2) COVID-19 Status: Acute Category: Medical Code(s): U07.1 - COVID-19 (3) Metabolic brain disease Status: Acute Category: Medical Code(s): G93.41 - Metabolic encephalopathy (4) Altered mental state Status: Resolved Qualifiers: Altered mental status type: disorientation Qualified Code(s): R41.0 - Disorientation, unspecified Category: Medical Code(s): R41.82 - Altered mental status, unspecified (5) Diabetes mellitus Status: Chronic Qualifiers: Diabetes mellitus type: type 2 Diabetes mellitus senior living insulin use: unspecified senior living insulin 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 disease) Status: Chronic Qualifiers: Coronary Disease-Associated Artery/Lesion type: [place] artery [place] vs. transplanted heart: [place] heart Associated angina: with unspecified angina Qualified Code(s): I25.119 - Atherosclerotic heart disease of [place] coronary artery with unspecified angina pectoris Category: Medical Code(s): I25.10 - Atherosclerotic heart disease of [place] coronary artery without angina pectoris (7) CRI (chronic renal insufficiency) Status: Chronic Qualifiers: Chronic kidney disease stage: stage 3 (moderate) Chronic kidney disease stage 3 subtype: unspecified whether 3a or 3b Qualified Code(s): N18.30 - Chronic kidney disease, stage 3 unspecified Category: Medical Code(s): N18.9 - Chronic kidney disease, unspecified (8) Elevated troponin Status: Acute Category: Medical Code(s): R79.89 - Other specified abnormal findings of blood chemistry (9) Metastatic melanoma Status: Acute Category: Medical Code(s): C79.9 - Secondary malignant neoplasm of unspecified site (10) Brain metastases Status: Acute Category: Medical Code(s): C79.31 - Secondary malignant
[2020-10-22 10:43] LABS: Chloride 120 mmol/L (98-107); Potassium 4.6 mmoL/L (3.5-5.1); Sodium 144 mmol/L (136-145)
[2020-10-22 10:46] LABS: Alanine Aminotransferase 58 U/L (12-78); Albumin Level 1.9 g/dl (3.5-5.0); Albumin/Globulin Ratio 0.7 (1.1-1.8); Alkaline Phosphatase 96 U/L (38-126); Anion Gap 5.6 mEq/L (5-15); Aspartate Amino Transferase 73 U/L (17-59); Bilirubin,Total 0.2 mg/dl (0.2-1.3); Blood Urea Nitrogen 31 mg/dl (9-20); Calcium 8.1 mg/dl (8.4-10.2); Carbon Dioxide 23 mmol/L (22.0-30.0); Creatinine Clearance Estimated 45 mL/min (50-200); Estimated Glomerular Filt Rate 43 ml/min (>60); GFR (African American) 52 ML/MIN (>60); Globulin 2.9 g/dL (1.3-3.2); Glucose 225 mg/dl (74-100); Total Protein,Serum 4.8 g/dl (6.3-8.2)
[2020-10-22 11:36] LABS: Basophils % 0.5 % (0.1-2.0); Eosinophils # 0.1 K/mm3 (0.0-0.4); Hematocrit 30.5 % (42.0-52.0); Hemoglobin 9.5 g/dL (14.1-18.0); Lymphocytes # 0.6 K/mm3 (0.7-4.5); Lymphocytes % 26.6 % (10-50); Mean Corpuscular HGB Conc 31.1 g/dL (31.8-35.4); Mean Corpuscular Hemoglobin 30.5 pg (27.0-31.2); Mean Corpuscular Volume 98.1 fl (80-94); Mean Platelet Volume 8.1 fl (7.4-10.4); Monocytes # 0.2 K/mm3 (0.1-1.0); Monocytes % 8.7 % (1.7-9.3); Neutrophils # 1.4 K/mm3 (1.8-7.8); Neutrophils % 61.4 % (37.0-80.0); Platelet Count 369 K/mm3 (142-424); Red Blood Count 3.11 M/mm3 (4.60-6.20); Red Cell Distribution Width 16.2 % (11.5-17.5); White Blood Count 2.2 K/mm3 (4.8-10.8)
--- NOTE | 2020-10-22 15:33 | PC.NURSE ---
PATIENT IS ALERT TO SELF. PATIENT HAS CONTINUED TO REMOVE HIS VAPOTHERM. THIS RN RE-ORIENTS PATIENT TO WHERE HE IS AND WHY. THIS RN ALONG WITH ENEDELIA RN BATHED PATIENT. PATIENT REFUSED AND STIFFENED WHEN TRYING TO TURN PATIENT ON SIDE. Rafa PEÑA RN REQUESTED THAT DR. FRANCE IS NOTIFIED OF PATIENT HEART RATE DROPPING AND LABORED BREATHING. PER MD, HE IS AWARE. NO OTHER CONCERNS AT THIS TIME.
[2020-10-22 15:36] LABS: POC Glucose,Bedside 217 (70-110)
[2020-10-22 15:36] LABS: POC Glucose,Bedside 229 (70-110)
[2020-10-22 15:36] LABS: POC Glucose,Bedside 177 (70-110)
[2020-10-22 15:36] LABS: POC Glucose,Bedside 210 (70-110)
[2020-10-22 16:47] LABS: POC Glucose,Bedside 163 (70-110)
--- NOTE | 2020-10-22 17:21 | PC.NURSE ---
PATIENT CONTINUES TO TAKE OFF VAPOTHERM, O2 DROPS TO HIGH 70S. PATIENT IS COMBATIVE WHEN TRYING TO ADMINISTER VAPOTHERM. THIS RN EDUCATED PATIENT THE IMPORTANCE OF USING THE VAPOTHERM. PATIENT VERBALIZED AN UNDERSTANDING.
[2020-10-22 21:16] LABS: Vancomycin,Trough 20.3 ug/mL (5.0-10.0)
[2020-10-22 21:19] LABS: POC Glucose,Bedside 194 (70-110)
--- NOTE | 2020-10-22 21:20 | PC.NURSE ---
Phone notification from pharmacy (Leonel): vanc trough level is good and ok to give scheduled dose tonight
[2020-10-23] VITALS (14 sets, daily range): BP systolic 111–138; BP diastolic 50–74; PULSE 66–90; RESP 24–36; TEMP 36.4–37.3; O2SAT 91–100; BMI 36.1
--- NOTE | 2020-10-23 05:12 | PC.NURSE ---
Patient has rested on and off throughout the night. He opens eyes when name is stated but does not respond when asked questions. Breath sounds are diminished with slight rhonchi in the bases. Vapotherm is set at 40L/ 100%. Patient has been NSR on telemetry. He has 1+ edema to bilateral hands and lower extremities. Alcantar draining cloudy yellow urine and has had about 1200 mL out this shift. New dressing placed on coccyx wound; patient has been turned every 2 hours.
[2020-10-23 06:03] LABS: POC Glucose,Bedside 154 (70-110)
[2020-10-23 06:48] LABS: Basophils % 0.4 % (0.1-2.0); Eosinophils # 0.1 K/mm3 (0.0-0.4); Eosinophils % 2.6 % (0.1-12.0); Hematocrit 32.5 % (42.0-52.0); Hemoglobin 9.9 g/dL (14.1-18.0); Lymphocytes # 0.5 K/mm3 (0.7-4.5); Lymphocytes % 20.2 % (10-50); Mean Corpuscular HGB Conc 30.6 g/dL (31.8-35.4); Mean Corpuscular Hemoglobin 30.3 pg (27.0-31.2); Mean Corpuscular Volume 99.2 fl (80-94); Mean Platelet Volume 8.4 fl (7.4-10.4); Monocytes # 0.2 K/mm3 (0.1-1.0); Monocytes % 7.5 % (1.7-9.3); Neutrophils # 1.7 K/mm3 (1.8-7.8); Neutrophils % 69.4 % (37.0-80.0); Platelet Count 374 K/mm3 (142-424); Red Blood Count 3.27 M/mm3 (4.60-6.20); Red Cell Distribution Width 16.1 % (11.5-17.5); White Blood Count 2.4 K/mm3 (4.8-10.8)
[2020-10-23 06:53] LABS: Alanine Aminotransferase 54 U/L (12-78); Albumin/Globulin Ratio 0.6 (1.1-1.8); Alkaline Phosphatase 96 U/L (38-126); Anion Gap 12.1 mEq/L (5-15); Aspartate Amino Transferase 53 U/L (17-59); Bilirubin,Total 0.4 mg/dl (0.2-1.3); Blood Urea Nitrogen 30 mg/dl (9-20); Calcium 8.2 mg/dl (8.4-10.2); Carbon Dioxide 20 mmol/L (22.0-30.0); Chloride 119 mmol/L (98-107); Creatinine Clearance Estimated 72 mL/min (50-200); Estimated Glomerular Filt Rate 43 ml/min (>60); GFR (African American) 52 ML/MIN (>60); Globulin 3.2 g/dL (1.3-3.2); Glucose 174 mg/dl (74-100); Potassium 4.1 mmoL/L (3.5-5.1); Sodium 147 mmol/L (136-145); Total Protein,Serum 5.2 g/dl (6.3-8.2)
--- NOTE | 2020-10-23 08:31 | HMH.PHACONS ---
- Pharmacy Consult Date: 10/23/20 Time: 08:31 Referring provider: DR. [place] Reason for Consult:: VANCOMYCIN TROUGH LEVEL Allergies and ADEs:: Allergies Allergy/AdvReac Type Severity Reaction Status Date / Time No Known Allergies Allergy Verified 10/14/20 03:05 Home Medications:: Home Medications Medication Instructions Recorded Confirmed Type amlodipine 5 mg tablet 5 mg PO DAILY tab 04/05/19 10/14/20 History furosemide 40 mg tablet 40 mg PO DAILY tab 04/05/19 10/14/20 History glipizide 10 mg tablet 20 mg PO DAILY tab 04/05/19 10/14/20 History levothyroxine 200 mcg tablet 200 mcg PO DAILY tab 04/05/19 10/14/20 History metformin 1,000 mg tablet 1,000 mg PO BID tab 04/05/19 10/14/20 History Fluoxetine HCl 20 mg PO DAILY 03/12/20 10/14/20 History Meloxicam 15 mg PO DAILY 03/12/20 10/14/20 History Trazodone HCl 200 mg PO HS 03/12/20 10/14/20 History Meclizine HCl [Meclizine 25mg Tab] 25 mg PO TID 03/13/20 10/14/20 History aspirin 81 mg tablet,delayed 81 mg PO DAILY 03/21/20 10/14/20 History release ferrous sulfate 325 mg (65 mg 325 mg PO DAILY 03/21/20 10/14/20 History iron) tablet lisinopril 20 mg tablet 20 mg PO DAILY tab 07/18/20 10/14/20 History pantoprazole 40 mg tablet,delayed 40 mg PO DAILY tab 07/18/20 10/14/20 History release Atorvastatin Calcium [Lipitor 40mg 40 mg PO DAILY 10/13/20 10/14/20 History Tab] Clopidogrel Bisulfate [Plavix] 75 mg PO DAILY 10/13/20 10/14/20 History carvediloL [Carvedilol 6.25mg Tab] 6.25 mg PO BID 10/13/20 10/14/20 History Dipyridamole 75 mg PO BID 10/14/20 10/14/20 History Probenecid/Colchicine 1 tab PO DAILY 10/14/20 10/14/20 History [Probenecid-Colchicine Tabs] ondansetron HCL [Ondansetron 8mg 8 mg PO TIDP PRN 10/14/20 10/14/20 History tab*] Height: 1.8 m Weight: 117.055 kg Laboratory Results:: Laboratory Results - last 24 hr 10/21/20 15:33: POC Glucose 217 H 10/21/20 20:07: POC Glucose 210 H 10/22/20 06:59: POC Glucose 177 H 10/22/20 10:15: Sodium 144, Potassium 4.6, Chloride 120 H, Carbon Dioxide 23, Anion Gap 5.6, BUN 31 H, Creatinine 1.60 H D, Estimated Creat Clear 45, Estimated GFR 43 L, Est GFR ( Amer) 52 L D, Glucose 225 H, Calcium 8.1 L, Total Bilirubin 0.2, AST 73 H D, ALT 58, Alkaline Phosphatase 96, Total Protein 4.8 L, Albumin 1.9 L, Globulin 2.9, Albumin/Globulin Ratio 0.7 L 10/22/20 11:15: WBC 2.2 L, RBC 3.11 L, Hgb 9.5 L, Hct 30.5 L, MCV 98.1 H, MCH 30.5, MCHC 31.1 L, RDW 16.2, Plt Count 369, MPV 8.1, Neut % (Auto) 61.4, Lymph % (Auto) 26.6, [place] % (Auto) 8.7, Eos % (Auto) 3.0, Baso % (Auto) 0.5, Neut # (Auto) 1.4 L, Lymph # (Auto) 0.6 L, [place] # (Auto) 0.2, Eos # (Auto) 0.1, Baso # (Auto) 0.0 10/22/20 11:17: POC Glucose 229 H 10/22/20 16:41: POC Glucose 163 H 10/22/20 20:30: Vancomycin Trough 20.3 H 10/22/20 21:11: POC Glucose 194 H 10/23/20 05:56: POC Glucose 154 H 10/23/20 06:10: WBC 2.4 L, RBC 3.27 L, Hgb 9.9 L, Hct 32.5 L, MCV 99.2 H, MCH 30.3, MCHC 30.6 L, RDW 16.1, Plt Count 374, MPV 8.4, Neut % (Auto) 69.4, Lymph % (Auto) 20.2, [place] % (Auto) 7.5, Eos % (Auto) 2.6, Baso % (Auto) 0.4, Neut # (Auto) 1.7 L, Lymph # (Auto) 0.5 L, [place] # (Auto) 0.2, Eos # (Auto) 0.1, Baso # (Auto) 0.0 10/23/20 06:10: Sodium 147 H, Potassium 4.1, Chloride 119 H, Carbon Dioxide 20 L, Anion Gap 12.1, BUN 30 H, Creatinine 1.60 H, Estimated Creat Clear 72, Estimated GFR 43 L, Est GFR ( Amer) 52 L, Glucose 174 H D, Calcium 8.2 L, Total Bilirubin 0.4, AST 53 D, ALT 54, Alkaline Phosphatase 96, Total Protein 5.2 L, Albumin 2.0 L, Globulin 3.2, Albumin/Globulin Ratio 0.6 L Medical History: Reports:: Atherosclerotic Heart Disease, Cancer (Brain Cancer.), Coronary Artery Disease, Depression, Diabetes Mellitus Type 2, Gastroesophageal Reflux Disease(GERD), Hyperlipidemia, Hypertension, Kidney Stones, Myocardial Infarction, Renal Disease, Transient Ischemic Attacks (TIA) Denies:: Diabetes Mellitus Type 1 Assessment and Plan (1) Acute delirium Status
--- NOTE | 2020-10-23 08:43 | HMH.ACPN2 ---
<Va Culp - Last Filed: 10/23/20 08:43> Internal Medicine - PN: Subj *Date: 10/23/20 *Time: 08:43 Interval history: Patient has not done well since yesterday afternoon. Nursing states they think he is given up. He has been very confused and combative and had to have Ativan this morning. He refuses to eat. Exam Vital signs and Labs for Last 24 Hours: Temp Pulse Resp BP Pulse Ox 97.6 F 66 24 138/55 L 97 10/23/20 07:48 10/23/20 07:48 10/23/20 07:48 10/23/20 07:48 10/23/20 07:48 Laboratory Results - last 24 hr 10/21/20 15:33: POC Glucose 217 H 10/21/20 20:07: POC Glucose 210 H 10/22/20 06:59: POC Glucose 177 H 10/22/20 10:15: Sodium 144, Potassium 4.6, Chloride 120 H, Carbon Dioxide 23, Anion Gap 5.6, BUN 31 H, Creatinine 1.60 H D, Estimated Creat Clear 45, Estimated GFR 43 L, Est GFR ( Amer) 52 L D, Glucose 225 H, Calcium 8.1 L, Total Bilirubin 0.2, AST 73 H D, ALT 58, Alkaline Phosphatase 96, Total Protein 4.8 L, Albumin 1.9 L, Globulin 2.9, Albumin/Globulin Ratio 0.7 L 10/22/20 11:15: WBC 2.2 L, RBC 3.11 L, Hgb 9.5 L, Hct 30.5 L, MCV 98.1 H, MCH 30.5, MCHC 31.1 L, RDW 16.2, Plt Count 369, MPV 8.1, Neut % (Auto) 61.4, Lymph % (Auto) 26.6, [place] % (Auto) 8.7, Eos % (Auto) 3.0, Baso % (Auto) 0.5, Neut # (Auto) 1.4 L, Lymph # (Auto) 0.6 L, [place] # (Auto) 0.2, Eos # (Auto) 0.1, Baso # (Auto) 0.0 10/22/20 11:17: POC Glucose 229 H 10/22/20 16:41: POC Glucose 163 H 10/22/20 20:30: Vancomycin Trough 20.3 H 10/22/20 21:11: POC Glucose 194 H 10/23/20 05:56: POC Glucose 154 H 10/23/20 06:10: WBC 2.4 L, RBC 3.27 L, Hgb 9.9 L, Hct 32.5 L, MCV 99.2 H, MCH 30.3, MCHC 30.6 L, RDW 16.1, Plt Count 374, MPV 8.4, Neut % (Auto) 69.4, Lymph % (Auto) 20.2, [place] % (Auto) 7.5, Eos % (Auto) 2.6, Baso % (Auto) 0.4, Neut # (Auto) 1.7 L, Lymph # (Auto) 0.5 L, [place] # (Auto) 0.2, Eos # (Auto) 0.1, Baso # (Auto) 0.0 10/23/20 06:10: Sodium 147 H, Potassium 4.1, Chloride 119 H, Carbon Dioxide 20 L, Anion Gap 12.1, BUN 30 H, Creatinine 1.60 H, Estimated Creat Clear 72, Estimated GFR 43 L, Est GFR ( Amer) 52 L, Glucose 174 H D, Calcium 8.2 L, Total Bilirubin 0.4, AST 53 D, ALT 54, Alkaline Phosphatase 96, Total Protein 5.2 L, Albumin 2.0 L, Globulin 3.2, Albumin/Globulin Ratio 0.6 L I & O for Last 24 hours: Intake & Output 10/20/20 10/21/20 10/22/20 10/23/20 11:59 11:59 11:59 11:59 Intake Total 705 / 705 120 / 120 900 / 900 1172 / 1172 Output Total 450 / 450 1050 / 1050 525 / 525 1575 / 1575 Balance 255 / 255 -930 / -930 375 / 375 -403 / -403 Weight 260 lb 3 oz 256 lb 6 oz 261 lb 2 oz 258 lb 1 oz Microbiology Reports for the Last 24 Hours: Microbiology 10/20/20 13:50 Buttock - Left Gram Stain - Final 10/20/20 13:50 Buttock - Left Wound Culture - Preliminary Gram Negative Rods Gram Negative Rods#2 - Constitutional Comments: Dyspneic at rest - *Routine Respiratory Exam Present: decreased breath sounds, rhonchi (faint) - *Routine Cardiovascular Exam Present: RRR - *Routine Abdominal Exam Present: soft, normoactive bowel sounds. Absent: tenderness - *Routine Extremities Exam Absent: cyanosis, clubbing, edema - *Routine Skin Exam Present: warm. Absent: rash - *Routine Neurological Exam Present: altered mental status Assessment and Plan (1) Acute delirium Status: Acute Category: Medical Code(s): R41.0 - Disorientation, unspecified (2) COVID-19 Status: Acute Category: Medical Code(s): U07.1 - COVID-19 (3) Metabolic brain disease Status: Acute Category: Medical Code(s): G93.41 - Metabolic encephalopathy (4) Altered mental state Status: Resolved Qualifiers: Altered mental status type: disorientation Qualified Code(s): R41.0 - Disorientation, unspecified Category: Medical Code(s): R41.82 - Altered mental status, unspecified (5) Diabetes mellitus Status: Chronic Qualifiers: Diabetes m
--- NOTE | 2020-10-23 11:06 | HMH.ACPN ---
Internal Medicine - PN: Subj *Date: 10/23/20 *Time: 11:06 Exam Vital signs and Labs for Last 24 Hours: Temp Pulse Resp BP Pulse Ox 97.6 F 70 24 138/55 L 97 10/23/20 07:48 10/23/20 08:00 10/23/20 07:48 10/23/20 07:48 10/23/20 07:48 Laboratory Results - last 24 hr 10/21/20 15:33: POC Glucose 217 H 10/21/20 20:07: POC Glucose 210 H 10/22/20 06:59: POC Glucose 177 H 10/22/20 11:15: WBC 2.2 L, RBC 3.11 L, Hgb 9.5 L, Hct 30.5 L, MCV 98.1 H, MCH 30.5, MCHC 31.1 L, RDW 16.2, Plt Count 369, MPV 8.1, Neut % (Auto) 61.4, Lymph % (Auto) 26.6, [place] % (Auto) 8.7, Eos % (Auto) 3.0, Baso % (Auto) 0.5, Neut # (Auto) 1.4 L, Lymph # (Auto) 0.6 L, [place] # (Auto) 0.2, Eos # (Auto) 0.1, Baso # (Auto) 0.0 10/22/20 11:17: POC Glucose 229 H 10/22/20 16:41: POC Glucose 163 H 10/22/20 20:30: Vancomycin Trough 20.3 H 10/22/20 21:11: POC Glucose 194 H 10/23/20 05:56: POC Glucose 154 H 10/23/20 06:10: WBC 2.4 L, RBC 3.27 L, Hgb 9.9 L, Hct 32.5 L, MCV 99.2 H, MCH 30.3, MCHC 30.6 L, RDW 16.1, Plt Count 374, MPV 8.4, Neut % (Auto) 69.4, Lymph % (Auto) 20.2, [place] % (Auto) 7.5, Eos % (Auto) 2.6, Baso % (Auto) 0.4, Neut # (Auto) 1.7 L, Lymph # (Auto) 0.5 L, [place] # (Auto) 0.2, Eos # (Auto) 0.1, Baso # (Auto) 0.0 10/23/20 06:10: Sodium 147 H, Potassium 4.1, Chloride 119 H, Carbon Dioxide 20 L, Anion Gap 12.1, BUN 30 H, Creatinine 1.60 H, Estimated Creat Clear 72, Estimated GFR 43 L, Est GFR ( Amer) 52 L, Glucose 174 H D, Calcium 8.2 L, Total Bilirubin 0.4, AST 53 D, ALT 54, Alkaline Phosphatase 96, Total Protein 5.2 L, Albumin 2.0 L, Globulin 3.2, Albumin/Globulin Ratio 0.6 L I & O for Last 24 hours: Intake & Output 10/20/20 10/21/20 10/22/20 10/23/20 23:59 23:59 23:59 23:59 Intake Total 120 / 120 780 / 780 1292 / 1292 Output Total 1000 / 1000 750 / 900 775 / 1425 1075 / 1075 Balance -880 / -880 30 / -120 517 / -133 -1075 / -1075 Weight 118.019 kg 116.29 kg 118.444 kg 117.055 kg Microbiology Reports for the Last 24 Hours: Microbiology 10/20/20 13:50 Buttock - Left Gram Stain - Final 10/20/20 13:50 Buttock - Left Wound Culture - Final Escherichia coli Proteus mirabilis Assessment and Plan (1) Acute delirium Status: Acute Category: Medical Code(s): R41.0 - Disorientation, unspecified (2) COVID-19 Status: Acute Category: Medical Code(s): U07.1 - COVID-19 (3) Metabolic brain disease Status: Acute Category: Medical Code(s): G93.41 - Metabolic encephalopathy (4) Altered mental state Status: Resolved Qualifiers: Altered mental status type: disorientation Qualified Code(s): R41.0 - Disorientation, unspecified Category: Medical Code(s): R41.82 - Altered mental status, unspecified (5) Diabetes mellitus Status: Chronic Qualifiers: Diabetes mellitus type: type 2 Diabetes mellitus remote computer terminal operator insulin use: unspecified remote computer terminal operator insulin 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 disease) Status: Chronic Qualifiers: Coronary Disease-Associated Artery/Lesion type: [place] artery [place] vs. transplanted heart: [place] heart Associated angina: with unspecified angina Qualified Code(s): I25.119 - Atherosclerotic heart disease of [place] coronary artery with unspecified angina pectoris Category: Medical Code(s): I25.10 - Atherosclerotic heart disease of [place] coronary artery without angina pectoris (7) CRI (chronic renal insufficiency) Status: Chronic Qualifiers: Chronic kidney disease stage: stage 3 (moderate) Chronic kidney disease stage 3 subtype: unspecified whether 3a or 3b Qualified Code(s): N18.30 - Chronic kidney disease, stage 3 unspecified Category
[2020-10-23 11:14] LABS: POC Glucose,Bedside 164 (70-110)
[2020-10-23 16:01] LABS: POC Glucose,Bedside 175 (70-110)
--- NOTE | 2020-10-23 16:37 | PC.NURSE ---
Addendum entered by Uzair Dutta RN 10/23/20 17:21: PATIENT HAS REFUSED MEDICATIONS, FOOD AND DRINKS. MD AWARE. Original Note: AT START OF THIS RN SHIFT PATIENT WAS SLEEPING, PATIENT IS CONTINUING TO REST COMFORTABLY. PATIENT WILL MUMBLE WHEN HIS NAME IS SPOKE AND GROAN DURING Q2 TURNS. NO OTHER CONCERNS AT THIS TIME.
[2020-10-23 20:59] LABS: POC Glucose,Bedside 158 (70-110)
[2020-10-24] VITALS (9 sets, daily range): BP systolic 100–160; BP diastolic 45–76; PULSE 67–93; RESP 22–35; TEMP 36.1–37.3; O2SAT 90–96; BMI 35.6
--- NOTE | 2020-10-24 01:15 | PC.NURSE ---
2100 spoke with MD about pt not being able to wake up enough to take meds. MD stated to hold night time meds.
--- NOTE | 2020-10-24 04:27 | PC.NURSE ---
shift summary pts lung sounds are diminished with sats maintained 90% or above with vapotherm on 40L and 100% fio2, with a rate ranging from 24-32. pt is very hard to arouse but will open eyes to painful stimuli and grunt and groan in response when spoken too. pt refuses to eat or drink anything by keeping his mouth shut tight when approached with anything. pt has a castillo in place urine is clear and yellow in color.
[2020-10-24 05:32] LABS: POC Glucose,Bedside 162 (70-110)
[2020-10-24 11:42] LABS: POC Glucose,Bedside 173 (70-110)
--- NOTE | 2020-10-24 14:39 | DIET.NUTRFU ---
Addendum entered by Christine Skelton 10/27/20 11:13: Pt minimally responsive, receiving comfort care measures only. Diet was removed per MD. Weight down additional 6#, No BM since 10/22, BG avg. 150. Continuing to monitor. Original Note: Pt has declined. Refusing all nourishment and medications at this time. He has refused all meals since 10/21, pt clamps mouth shut. Weight is down 6#, BG moderate- avg. 180. Diet liberalized to regular with sugar free beverages and supplements on diet order removed at this time. Pt may have anything desired by request/RN offer, observing aspiration precautions. DNR status noted, will continue to provide option to consume nourishment to pt as indicated. Continuing to monitor.
[2020-10-24 17:31] LABS: POC Glucose,Bedside 168 (70-110)
--- NOTE | 2020-10-24 18:07 | PC.NURSE ---
Pt has occasional eye opening, incomprehensible verbal responses, and localizes to pain. GCS is 10. This AM pt appeared to be very restless and was audibly moaning. Ativan and Morphine were administered and pt has been resting quietly since. Around noon, pt de-saturated to approximately 65% with 40 L of O2 via vapotherm in place. The vapotherm was kept in place and a non-rebreather was applied. Pt's sats. have been between 80-92% since. Lung sounds reveal inspiratory/expiratory rhonchi. Telemetry reveals NSR. 1+ pitting edema noted to bilateral hands and BLE. F/C is patent and draining clear, yellow urine at bedside to gravity. No BM this shift. Pt has been turned/repositioned and provided oral care Q2H this shift. Will continue to monitor.
[2020-10-24 22:05] LABS: POC Glucose,Bedside 152 (70-110)
--- NOTE | 2020-10-24 23:33 | PC.NURSE ---
221 pt sats dropped from 95% on vapotherm on 40L and 100% fio2 with a rate of 26 to sats ranging from 59-80% with a rate ranging [id number]. pt then had a nonrebreather on 15L placed on top of vapotherm which didn't improve the pts condition. 223 respiratory was notified 223 respiratory tried changing out the pulse ox and tried changing its location multiple times. 2255 MD was paged [phone] Lam no new orders were given, stated we were doing all that we could at this time. 2322 pts was notified of significant decrease in pts oxygen saturation, asked to be notified of any other changes.
[2020-10-25] VITALS (10 sets, daily range): BP systolic 101–143; BP diastolic 44–64; PULSE 70–110; RESP 26–40; TEMP 35.9–38.3; O2SAT 81–95; BMI 35.9
--- NOTE | 2020-10-25 00:17 | PC.NURSE ---
0000 pt was repositioned supine and his nonrebreather was repositioned which helped increase pts sats to 80% and above.
[2020-10-25 05:11] LABS: POC Glucose,Bedside 157 (70-110)
--- NOTE | 2020-10-25 08:55 | HMH.ACPN2 ---
Internal Medicine - PN: Subj *Date: 10/25/20 *Time: 08:55 Interval history: He has been mostly nonresponsive. He is currently on a nonrebreather over the Vapotherm which is at its maximum setting with sats running in the low to mid 80s. Exam Vital signs and Labs for Last 24 Hours: Temp Pulse Resp BP Pulse Ox 97.6 F 94 H 28 H 108/44 L 87 L 10/25/20 11:58 10/25/20 11:58 10/25/20 11:58 10/25/20 11:58 10/25/20 11:58 Laboratory Results - last 24 hr 10/24/20 16:38: POC Glucose 168 H 10/24/20 21:54: POC Glucose 152 H 10/25/20 05:02: POC Glucose 157 H 10/25/20 11:15: POC Glucose 135 H I & O for Last 24 hours: Intake & Output 10/23/20 10/24/20 10/25/20 10/26/20 11:59 11:59 11:59 11:59 Intake Total 1172 / 1172 180 / 180 100 / 100 Output Total 1775 / 1775 825 / 825 850 / 850 Balance -603 / -603 -645 / -645 -750 / -750 Weight 258 lb 1 oz 254 lb 6 oz 256 lb 9 oz Narrative: He appears in no distress. Color is adequate. Lungs are clear anteriorly. Heart is distant but regular. Extremities no edema. Assessment and Plan (1) Acute delirium Status: Acute Category: Medical Code(s): R41.0 - Disorientation, unspecified (2) COVID-19 Status: Acute Category: Medical Code(s): U07.1 - COVID-19 (3) Metabolic brain disease Status: Acute Category: Medical Code(s): G93.41 - Metabolic encephalopathy (4) Altered mental state Status: Resolved Qualifiers: Altered mental status type: disorientation Qualified Code(s): R41.0 - Disorientation, unspecified Category: Medical Code(s): R41.82 - Altered mental status, unspecified (5) Diabetes mellitus Status: Chronic Qualifiers: Diabetes mellitus type: type 2 Diabetes mellitus termite control representative insulin use: unspecified termite control representative insulin 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 disease) Status: Chronic Qualifiers: Coronary Disease-Associated Artery/Lesion type: [place] artery [place] vs. transplanted heart: [place] heart Associated angina: with unspecified angina Qualified Code(s): I25.119 - Atherosclerotic heart disease of [place] coronary artery with unspecified angina pectoris Category: Medical Code(s): I25.10 - Atherosclerotic heart disease of [place] coronary artery without angina pectoris (7) CRI (chronic renal insufficiency) Status: Chronic Qualifiers: Chronic kidney disease stage: stage 3 (moderate) Chronic kidney disease stage 3 subtype: unspecified whether 3a or 3b Qualified Code(s): N18.30 - Chronic kidney disease, stage 3 unspecified Category: Medical Code(s): N18.9 - Chronic kidney disease, unspecified (8) Elevated troponin Status: Acute Category: Medical Code(s): R79.89 - Other specified abnormal findings of blood chemistry (9) Metastatic melanoma Status: Acute Category: Medical Code(s): C79.9 - Secondary malignant neoplasm of unspecified site (10) Brain metastases Status: Acute Category: Medical Code(s): C79.31 - Secondary malignant neoplasm of brain (11) Leukopenia Status: Acute Category: Medical Code(s): D72.819 - Decreased white blood cell count, unspecified (12) Acute kidney injury Status: Acute Category: Medical Code(s): N17.9 - Acute kidney failure, unspecified (13) Sacral wound Status: Acute Category: Medical Code(s): S31.000A - Unspecified open wound of lower back and pelvis without penetration into retroperitoneum, initial encounter - Assessment and plan all Dx Assessment and Plan for all problems:: Continue current treatment. Condition remains critical
[2020-10-25 11:27] LABS: POC Glucose,Bedside 135 (70-110)
--- NOTE | 2020-10-25 16:12 | PC.NURSE ---
Pt has had no eye opening this shift thus far, occasional moaning is noted, and pt withdraws to pain (GCS: 7). Morphine has been administered twice thus far this shift and Ativan has been administered once. Lung sounds reveal expiratory rhonchi. Pt is receiving O2 via vapotherm @ 40 LPM and is also wearing a non-rebreather (100%). O2 saturations have ranged from 80-90%. Telemetry reveals NSR. 1+ pitting edema noted to bilateral hands and BLE. Stage 2 ulceration noted to bilateral buttocks/coccyx, dressing removed and reapplied. FSBS results have been 135 and 128. F/C is patent and draining clear, yellow urine at bedside to gravity. No BM this shift. Pt has been turned/repositioned and provided oral care Q2H today. 20 G peripheral IV in the RT AC is patent and SL. Will continue to monitor.
[2020-10-25 16:15] LABS: POC Glucose,Bedside 128 (70-110)
[2020-10-25 20:33] LABS: POC Glucose,Bedside 133 (70-110)
[2020-10-26] VITALS (7 sets, daily range): BP systolic 100–122; BP diastolic 54–71; PULSE 80–99; RESP 22–26; TEMP 36–37.2; O2SAT 90–96; BMI 35.9
--- NOTE | 2020-10-26 04:34 | PC.NURSE ---
shift summary pts lung sounds are diminished with some inspiratoy and expiratory rhonchi sats maintained 82-94% on vapotherm at 40L with 100% fio2 and a nonrebreather on 15L, and a rate ranging from 25-34. pt remained unresponsive during most of the night but opened his eyes in response to receiving a bed bath. pt did not tolerate bed bath well sats dropped to 80%, and pulse increased to 133 but both recovered in less then 2 min. [address] is in place with clear yellow in color urine.
[2020-10-26 05:57] LABS: POC Glucose,Bedside 131 (70-110)
--- NOTE | 2020-10-26 09:01 | HMH.ACPN2 ---
Internal Medicine - PN: Subj *Date: 10/26/20 *Time: 08:47 Interval history: He remains mostly unresponsive. He did open his eyes during his bath. O2 sats have been more stable overnight running in the upper 80s to low 90s Exam Vital signs and Labs for Last 24 Hours: Temp Pulse Resp BP Pulse Ox 98.9 F 85 24 100/59 L 90 L 10/26/20 07:58 10/26/20 07:59 10/26/20 07:59 10/26/20 07:58 10/26/20 07:59 Laboratory Results - last 24 hr 10/25/20 11:15: POC Glucose 135 H 10/25/20 16:08: POC Glucose 128 H 10/25/20 20:25: POC Glucose 133 H 10/26/20 05:49: POC Glucose 131 H I & O for Last 24 hours: Intake & Output 10/23/20 10/24/20 10/25/20 10/26/20 11:59 11:59 11:59 11:59 Intake Total 1172 / 1172 180 / 180 100 / 100 100 / 100 Output Total 1775 / 1775 825 / 825 850 / 850 500 / 500 Balance -603 / -603 -645 / -645 -750 / -750 -400 / -400 Weight 258 lb 1 oz 254 lb 6 oz 256 lb 9 oz 257 lb 1 oz Narrative: He is unresponsive to voice or tactile stimulation. Mild respiratory distress. Breath sounds are diminished in the right lung but otherwise clear. Heart is distant but regular. Abdomen is soft and nondistended. Extremities with trace pedal edema. Assessment and Plan (1) Acute delirium Status: Acute Category: Medical Code(s): R41.0 - Disorientation, unspecified (2) COVID-19 Status: Acute Category: Medical Code(s): U07.1 - COVID-19 (3) Metabolic brain disease Status: Acute Category: Medical Code(s): G93.41 - Metabolic encephalopathy (4) Altered mental state Status: Resolved Qualifiers: Altered mental status type: disorientation Qualified Code(s): R41.0 - Disorientation, unspecified Category: Medical Code(s): R41.82 - Altered mental status, unspecified (5) Diabetes mellitus Status: Chronic Qualifiers: Diabetes mellitus type: type 2 Diabetes mellitus halfway insulin 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 transplanted heart: [place] heart Associated angina: with unspecified angina Qualified Code(s): I25.119 - Atherosclerotic heart disease of [place] coronary artery with unspecified angina pectoris Category: Medical Code(s): I25.10 - Atherosclerotic heart disease of [place] coronary artery without angina pectoris (7) CRI (chronic renal insufficiency) Status: Chronic Qualifiers: Chronic kidney disease stage: stage 3 (moderate) Chronic kidney disease stage 3 subtype: unspecified whether 3a or 3b Qualified Code(s): N18.30 - Chronic kidney disease, stage 3 unspecified Category: Medical Code(s): N18.9 - Chronic kidney disease, unspecified (8) Elevated troponin Status: Acute Category: Medical Code(s): R79.89 - Other specified abnormal findings of blood chemistry (9) Metastatic melanoma Status: Acute Category: Medical Code(s): C79.9 - Secondary malignant neoplasm of unspecified site (10) Brain metastases Status: Acute Category: Medical Code(s): C79.31 - Secondary malignant neoplasm of brain (11) Leukopenia Status: Acute Category: Medical Code(s): D72.819 - Decreased white blood cell count, unspecified (12) Acute kidney injury Status: Acute Category: Medical Code(s): N17.9 - Acute kidney failure, unspecified (13) Sacral wound Status: Acute Category: Medical Code(s): S31.000A - Unspecified open wound of lower back and pelvis without penetration into retroperitoneum, initial encounter - Assessment and plan all Dx Assessment and Plan for all problems:: Continue current treatment
--- NOTE | 2020-10-26 09:47 | HMH.ACPN ---
Internal Medicine - PN: Subj *Date: 10/26/20 *Time: 09:47 Exam Vital signs and Labs for Last 24 Hours: Temp Pulse Resp BP Pulse Ox 98.9 F 85 24 100/59 L 95 10/26/20 07:58 10/26/20 07:59 10/26/20 07:59 10/26/20 07:58 10/26/20 09:15 Laboratory Results - last 24 hr 10/25/20 11:15: POC Glucose 135 H 10/25/20 16:08: POC Glucose 128 H 10/25/20 20:25: POC Glucose 133 H 10/26/20 05:49: POC Glucose 131 H I & O for Last 24 hours: Intake & Output 10/23/20 10/24/20 10/25/20 10/26/20 23:59 23:59 23:59 23:59 Intake Total 180 / 180 0 / 0 200 / 200 Output Total 1475 / 2100 1125 / 1475 850 / 850 Balance -1295 / -1920 -1125 / -1475 -650 / -650 Weight 117.055 kg 115.383 kg 116.375 kg 116.602 kg Assessment and Plan (1) Acute delirium Status: Acute Category: Medical Code(s): R41.0 - Disorientation, unspecified (2) COVID-19 Status: Acute Category: Medical Code(s): U07.1 - COVID-19 (3) Metabolic brain disease Status: Acute Category: Medical Code(s): G93.41 - Metabolic encephalopathy (4) Altered mental state Status: Resolved Qualifiers: Altered mental status type: disorientation Qualified Code(s): R41.0 - Disorientation, unspecified Category: Medical Code(s): R41.82 - Altered mental status, unspecified (5) Diabetes mellitus Status: Chronic Qualifiers: Diabetes mellitus type: type 2 Diabetes mellitus nursing home insulin use: 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 transplanted heart: [place] heart Associated angina: with unspecified angina Qualified Code(s): I25.119 - Atherosclerotic heart disease of [place] coronary artery with unspecified angina pectoris Category: Medical Code(s): I25.10 - Atherosclerotic heart disease of [place] coronary artery without angina pectoris (7) CRI (chronic renal insufficiency) Status: Chronic Qualifiers: Chronic kidney disease stage: stage 3 (moderate) Chronic kidney disease stage 3 subtype: unspecified whether 3a or 3b Qualified Code(s): N18.30 - Chronic kidney disease, stage 3 unspecified Category: Medical Code(s): N18.9 - Chronic kidney disease, unspecified (8) Elevated troponin Status: Acute Category: Medical Code(s): R79.89 - Other specified abnormal findings of blood chemistry (9) Metastatic melanoma Status: Acute Category: Medical Code(s): C79.9 - Secondary malignant neoplasm of unspecified site (10) Brain metastases Status: Acute Category: Medical Code(s): C79.31 - Secondary malignant neoplasm of brain (11) Leukopenia Status: Acute Category: Medical Code(s): D72.819 - Decreased white blood cell count, unspecified (12) Acute kidney injury Status: Acute Category: Medical Code(s): N17.9 - Acute kidney failure, unspecified (13) Sacral wound Status: Acute Category: Medical Code(s): S31.000A - Unspecified open wound of lower back and pelvis without penetration into retroperitoneum, initial encounter The patient's infection will respond to the chosen ABx?: Yes Is the patient receiving the right drug, dose, and route?: Yes Could a more targeted ABx be ordered?: No
--- NOTE | 2020-10-26 17:51 | PC.NURSE ---
Pt has had no eye opening this shift thus far, occasional moaning is noted, and pt withdraws to pain (GCS: 7). Lung sounds reveal expiratory rhonchi. Pt is receiving O2 via vapotherm @ 40 LPM and is also wearing a non-rebreather (100%). O2 saturations have remained >90% this shift. Telemetry reveals NSR. 1+ pitting edema noted to bilateral hands and BLE. Stage 2 ulceration noted to bilateral buttocks/coccyx, dressing C/D/I. F/C is patent and draining cloudy, dark, yellow urine at bedside to gravity. No BM this shift. Pt has been turned/repositioned and provided oral care Q2H today. 20 G peripheral IV in the RT AC is patent and SL. Will continue to monitor.
[2020-10-27] VITALS (28 sets, daily range): BP systolic 59–114; BP diastolic 32–55; PULSE 38–137; RESP 8–33; TEMP 36.5–37.5; O2SAT 72–94; BMI 35.0
[2020-10-27 06:40] LABS: Basophils % 0.3 % (0.1-2.0); Eosinophils % 0.3 % (0.1-12.0); Hematocrit 28.7 % (42.0-52.0); Hemoglobin 8.8 g/dL (14.1-18.0); Lymphocytes # 0.5 K/mm3 (0.7-4.5); Lymphocytes % 8.3 % (10-50); Mean Corpuscular HGB Conc 30.5 g/dL (31.8-35.4); Mean Corpuscular Hemoglobin 30.4 pg (27.0-31.2); Mean Corpuscular Volume 99.6 fl (80-94); Mean Platelet Volume 8.6 fl (7.4-10.4); Monocytes # 0.2 K/mm3 (0.1-1.0); Neutrophils % 87.1 % (37.0-80.0); Platelet Count 244 K/mm3 (142-424); Red Blood Count 2.88 M/mm3 (4.60-6.20); Red Cell Distribution Width 16.2 % (11.5-17.5); White Blood Count 5.7 K/mm3 (4.8-10.8)
[2020-10-27 06:46] LABS: MANUAL DIFFERENTIAL MANUAL DIFFERENTIAL (MANUAL DIFF)
[2020-10-27 07:11] LABS: Alanine Aminotransferase 25 U/L (12-78); Albumin/Globulin Ratio 0.6 (1.1-1.8); Alkaline Phosphatase 55 U/L (38-126); Anion Gap 12.7 mEq/L (5-15); Aspartate Amino Transferase 39 U/L (17-59); Blood Urea Nitrogen 72 mg/dl (9-20); Calcium 8.6 mg/dl (8.4-10.2); Carbon Dioxide 19 mmol/L (22.0-30.0); Creatinine Clearance Estimated 28 mL/min (50-200); Estimated Glomerular Filt Rate 15 ml/min (>60); GFR (African American) 18 ML/MIN (>60); Globulin 3.5 g/dL (1.3-3.2); Glucose 151 mg/dl (74-100); Potassium 5.7 mmoL/L (3.5-5.1); Total Protein,Serum 5.5 g/dl (6.3-8.2)
[2020-10-27 07:28] LABS: Sodium 153 mmol/L (136-145)
[2020-10-27 07:29] LABS: Chloride 127 mmol/L (98-107)
[2020-10-27 08:31] LABS: POC Glucose,Bedside 169 (70-110)
[2020-10-27 08:48] LABS: Lymphocytes % 3 % (10-50); Monocytes % 7 % (2-9); Neutrophils % 86 % (42-76); Total Cells Counted 100
[2020-10-27 08:51] LABS: Burr Cells 1+
[2020-10-27 08:52] LABS: Poikilocytosis 2+
[2020-10-27 08:53] LABS: Platelet Estimate Normal
--- NOTE | 2020-10-27 09:05 | HMH.ACPN2 ---
Internal Medicine - PN: Subj *Date: 10/27/20 *Time: 09:18 Interval history: Patient continues to decline, he did not awaken yesterday and only opened his eyes briefly this morning. Exam Vital signs and Labs for Last 24 Hours: Temp Pulse Resp BP Pulse Ox 98.7 F 81 23 114/51 L 89 L 10/27/20 08:00 10/27/20 08:00 10/27/20 08:00 10/27/20 08:00 10/27/20 08:00 Laboratory Results - last 24 hr 10/27/20 06:19: WBC 5.7, RBC 2.88 L, Hgb 8.8 L, Hct 28.7 L, MCV 99.6 H, MCH 30.4, MCHC 30.5 L, RDW 16.2, Plt Count 244, MPV 8.6, Neut % (Auto) 87.1 H, Lymph % (Auto) 8.3 L, [place] % (Auto) 4.0, Eos % (Auto) 0.3, Baso % (Auto) 0.3, Neut # (Auto) 5.0, Lymph # (Auto) 0.5 L, [place] # (Auto) 0.2, Eos # (Auto) 0.0, Baso # (Auto) 0.0, Total Counted 100, Neutrophils % (Manual) 86 H, Band Neutrophils % 4.0, Lymphocytes % (Manual) 3 L, Monocytes % (Manual) 7, Platelet Estimate Normal, Poikilocytosis 2+, [place] Cells 1+ 10/27/20 06:19: Sodium 153 H*, Potassium 5.7 H, Chloride 127 H, Carbon Dioxide 19 L, Anion Gap 12.7, BUN 72 H, Creatinine 4.00 H, Estimated Creat Clear 28, Estimated GFR 15 L*, Est GFR ( Amer) 18 L*, Glucose 151 H, Calcium 8.6, Total Bilirubin 1.0, AST 39, ALT 25, Alkaline Phosphatase 55, Total Protein 5.5 L, Albumin 2.0 L, Globulin 3.5 H, Albumin/Globulin Ratio 0.6 L 10/27/20 08:22: POC Glucose 169 H Vital Signs - 24 hr 10/26/20 09:15 10/26/20 12:00 10/26/20 16:00 Temperature 96.8 F L 97.5 F L Pulse Rate [Apical] 95 H Pulse Rate [Right Brachial] 97 H Respiratory Rate 24 26 H Blood Pressure [Right Arm] 101/54 L 104/71 L 02 Sat by Pulse Oximetry 95 92 L 95 10/26/20 20:00 10/27/20 00:00 10/27/20 03:36 Temperature 98.2 F 98.6 F 99.5 F Pulse Rate [Apical] Pulse Rate [Right Brachial] 80 94 H 99 H Respiratory Rate 22 25 H 33 H Blood Pressure [Right Arm] 115/54 L 100/54 L 108/55 L 02 Sat by Pulse Oximetry 96 94 L 91 L 10/27/20 06:51 10/27/20 08:00 Temperature 98.7 F Pulse Rate [Apical] 81 Pulse Rate [Right Brachial] Respiratory Rate 23 Blood Pressure [Right Arm] 114/51 L 02 Sat by Pulse Oximetry 91 L 89 L I & O for Last 24 hours: Intake & Output 10/24/20 10/25/20 10/26/20 10/27/20 23:59 23:59 23:59 23:59 Intake Total 0 / 0 200 / 200 100 / 200 100 / 100 Output Total 1125 / 1475 850 / 850 175 / 250 125 / 125 Balance -1125 / -1475 -650 / -650 -75 / -50 -25 / -25 Weight 254 lb 6 oz 256 lb 9 oz 257 lb 1 oz 250 lb 4 oz - Constitutional Comments: sedate, hi flow oxygen and NRB mask in use - *Routine Respiratory Exam Present: rhonchi, crackles - *Routine Cardiovascular Exam Present: RRR Assessment and Plan (1) Acute delirium Status: Acute Category: Medical Code(s): R41.0 - Disorientation, unspecified (2) COVID-19 Status: Acute Category: Medical Code(s): U07.1 - COVID-19 (3) Metabolic brain disease Status: Acute Category: Medical Code(s): G93.41 - Metabolic encephalopathy (4) Altered mental state Status: Resolved Qualifiers: Altered mental status type: disorientation Qualified Code(s): R41.0 - Disorientation, unspecified Category: Medical Code(s): R41.82 - Altered mental status, unspecified (5) Diabetes mellitus Status: Chronic Qualifiers: Diabetes mellitus type: type 2 Diabetes mellitus prison insulin 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 transplanted heart: [place] heart Associated angina: with unspecified angina Qualified Code(s): I25.119 - Atherosclerotic heart disease of [place] coronary artery with unspecified angina pec
--- NOTE | 2020-10-27 10:49 | PC.NURSE ---
1030, clarified with Dr Duff via office staff that md wishes pt to be taken off of nrb and vapotherm. family states that they wish to be notified of any changes, but they do not plan of coming to visit pt today. RT aware to wean vapotherm and nrb
--- NOTE | 2020-10-27 11:33 | PC.NURSE ---
dr Duff returned phone call and states he did not wish to wean the vapotherm any further. ok to take nrb off but leave vapotherm at 35/90. RT aware.
--- NOTE | 2020-10-27 18:39 | PC.NURSE ---
Dr Duff called and requested update on pt at approx 1800. pt bp remains in the low to upper 70's. o2 ranges from 72-77 on 35l/90% Vapotherm. pt has received 2 doses of morphine for comfort so far. pt HR has been 120-150 at times and is noted to be in Afib. no new orders from at this time.
--- NOTE | 2020-10-27 23:37 | PC.NURSE ---
His time of was 2201. Effie Cifuentes was notified when his heart rate decreased to 20s and 30s. She stated to call if anything changed or if he passed. She was notified at 2216 that he had passed. R/o of [place] at 2220. Developmental Mathematics Professor was 2220 with Fernanda Back. Rule out, case # [id number].
--- NOTE | 2020-10-29 08:19 | HMH.DCSUM ---
General - General Admission date:: 10/14/20 Discharge date: 10/27/20 HPI HPI: Mr. Cifuentes is a 70yo white male with history of T2DM, HTN, CKD, ASCVD with RI, GERD, HLP, TIA, depression, and nicotine use who was diagnosed with metastatic melanoma in July of 2020 and subsequently underwent surgery followed by chemo and radiation. History is obtained from ER record as the patient is unable to provide at this time. He had followup and chemo last week with Dr. Kimble. His described a one-day history of increasing confusion and decline in mental status. She reported that he had not gotten out of bed yesterday and was not able to follow commands. She denied any fever or seizure activity. Thus, he was brought to the ED for evaluation. Upon arrival, CXR showed an elevated right hemidiaphragm with right basilar atelectasis as well as prominent left hilum. CT of the head showed two new areas of decreased attenuation consistent with metastatic foci with vasogenic edema as well as post surgical changes and suggested MRI for further evaluation if desired. EKG showed nonspecific ST-T wave changes. Laboratory workup was significant for decreased potassium at 3.3 and renal function with BUN 37, Cr 2.40, and GFR 27. His ESR and CRP were elevated. Initial troponin was mildly elevated at 0.07 with repeat level troponin remaining stable. His nasal PCR was positive for SARS-COV-2 which was a new diagnosis. He was admitted to the COVID unit for further evaluation and management. This morning, he is arousable only with repeated verbal and tactile stimulation and falls back to sleep quickly. He is oriented to self. He denies any pain. Hospital Course Hospital Course: The patient was placed in respiratory isolation and was started on COVID-19 protocol. The patient's status did decline and he was very agitated and sometimes combative. Convalescent plasma was ordered and was given. He did improve slightly and was able to eat small amounts of pudding. His respiratory status had slightly improved, remdesivir was renewed for a total of 10 full days. He was started on a low-dose of Ativan for agitation. He had a repeat chest x-ray on 10/20/2020 showing worsening bilateral pneumonia. His blood cultures were negative but he did have a sacral wound and this was cultured as well and he was started on vancomycin. It grew out E. Coli and Proteus. He began having episodes of bradycardia. His medications were held and Dr. Duff spoke to the patient's and he was changed to a DNR due to his declining status. He rallied slightly on 10/22/2020 and was awake alert and talking. He was actually trying to eat some breakfast. By 10/23/2020, the patient had declined again and was requiring Ativan for confusion and agitation. He refused to eat. By 10/25/2020, he was mostly nonresponsive. He was on a nonrebreather over his Vapotherm and his saturations were in the low to mid 80s. The patient was changed to comfort measures only. On 10/27/2020 his blood pressure was in the low to upper 70s and his oxygen was in the 70s as well. He was receiving morphine for comfort. His heart rate was 120-150 and he was in atrial.. His heart rate decreased into the 20s and 30s and he was pronounced at 2202. Objective Vital signs: Temp Pulse Resp BP Pulse Ox 97.7 F 38 L 8 L 59/32 L 75 L 10/27/20 16:00 10/27/20 21:55 10/27/20 21:55 10/27/20 21:55 10/27/20 21:55 Narrative: - Constitutional no acute distress Comments: arouses briefly with repeated verbal and tactile stimulation, falls back to sleep quickly - *Routine HEENT Exam Head: Present: normocephalic, atraumatic Eye: Absent: scleral injection ENT: Present: mucous membranes moist - *Routine Neck Exam Present: supple. Absent: lymphadenopathy - *Routine Respiratory Exam Absent: respiratory distress, wheezes Comments: good air movement with bibasilar rales more prominent on the right
== END 2020-10-27 23:52 | disposition expired | DRG 177 ==
LOC: ER 22:42 → ICU 10-14 02:18
PROVIDERS: Physician Assistant; Admitting Provider Family Medicine; Emergency Provider Emergency Medicine; PCP Family Medicine; Visit Provider Family Medicine
DX: U07.1 COVID-19 (principal); G93.41 Metabolic encephalopathy; C79.31 Secondary malignant neoplasm of brain; Z79.84 Long term (current) use of oral hypoglycemic drugs; Z79.899 Other long term (current) drug therapy; Z79.02 Long term (current) use of antithrombotics/antiplatelets; N18.30 Chronic kidney disease, stage 3 unspecified; C43.9 Malignant melanoma of skin, unspecified; L89.152 Pressure ulcer of sacral region, stage 2; E11.22 Type 2 diabetes mellitus with diabetic chronic kidney disease; I12.9 Hypertensive chronic kidney disease with stage 1 through stage 4 chronic kidney disease, or unspecified chronic kidney disease
CPT/HCPCS: 36415; 70450; 71045; 80048; 80053; 80202; 81001; 82272; 82803; 82962; 83605; 84146; 84484; 85007; 85025; 85651; 86140; 86900; 86901; 87040; 87070; 87077; 87186; 87205; 87581; 87633; 87798; 93005; 94760; 94761; 96365; 96366; 96375; 99285; G0328; J3370; P9017